=== PATIENT | female | born 1940 | race Caucasian/White ===

== ENCOUNTER 2018-04-01 20:56 | Inpatient (IN) ==
[2018-04-01] MEDS: Propofol 1000 mg/100 ml Inj 1,000 MG/100 ML BOTTLE IV.CONT PRN (21:18)
[2018-04-01] MEDS: Nitroglycerin Drip Premix 50 MG/250 ML BOTTLE IV.CONT PRN (21:35)
[2018-04-01 21:46] LABS: Baso # (Auto) 0.1 th/mm3 (0.0-0.2); Baso % (Auto) 0.7 % (0.0-2.0); Eos # (Auto) 0.8 th/mm3 (0.0-0.4); Eos % (Auto) 6.4 % (0.0-4.0); Hematocrit 33.9 % (35.0-46.0); Hemoglobin 10.7 gm/dL (11.6-15.3); Lymph # (Auto) 2.5 th/mm3 (1.0-4.8); Mean Corpuscular HGB Conc 31.6 % (32.0-36.0); Mean Corpuscular Hemoglobin 27.6 pg (27.0-34.0); Mean Corpuscular Volume 87.2 fL (80.0-100.0); Mean Platelet Volume 11.3 fL (7.0-11.0); Mono # (Auto) 0.7 th/mm3 (0.0-0.9); Mono % (Auto) 5.5 % (0.0-8.0); Neut # (Auto) 9.1 th/mm3 (1.8-7.7); Neut % (Auto) 68.4 % (16.0-70.0); Platelet Count 208 th/mm3 (150-450); Red Blood Count 3.89 mil/mm3 (4.00-5.30); Red Cell Distribution Width 15.6 % (11.6-17.2); White Blood Count 13.2 th/mm3 (4.0-11.0)
--- NOTE | 2018-04-01 21:47 | XR ---
EXAM DATE: 04/01/2018 9:41 PM EDT AGE/SEX: 77 years / Female INDICATIONS: Intubation. CLINICAL DATA: This is the patient's initial encounter. Patient reports that signs and symptoms have been present for 1 day and indicates a pain score of Nonresponsive. MEDICAL/SURGICAL HISTORY: Non-responsive. Non-responsive. COMPARISON: No prior exams available for comparison. FINDINGS: ET tube tip is 2.7 cm above the janessa. Gastric tube traverses the [id number]. The heart is upper limits normal size. There is engorgement and indistinctness of the central bronchopulmonary markings standing up into the upper lungs without definite peribronchial thickening. Both hemidiaphragms remai n well delineated. CONCLUSION: 1. ET tube in good position. 2. Fullness and indistinctness of the central bronchopulmonary markings could represent fluid overlo ad, or an inflammatory process. Electronically signed by: Brett Murray MD 04/01/2018 9:46 PM EDT
--- NOTE | 2018-04-01 21:49 | ED ---
HPI General Chief Complaint: Shortness of Breath/Dyspnea Stated Complaint: respiratory Time Seen by Provider: 04/01/18 21:11 Source: EMS Mode of arrival: EMS Limitations: other (pt intubated) History of Present Illness 77-year-old female arrives to the ED by EMS. A call was due to shortness of breath. On scene the patient tolerated BiPAP for a few seconds. Blood pressure was 260/180 per EMS. EMS gave 100 mg Lasix. The family reports patient has had increased lower extremity swelling. Family reports patient is a history of CHF. EMS intubated with an 8 oh endotracheal tube. O2 sats remained in the high 90s on 40% FiO2. MD Complaint: shortness of breath Onset (ago): unknown Context: other (increased LE edema) Severity: moderate Consistency/Duration: constant Relieving factors: oxygen and other (intubation) Known history of: congestive heart failure Treatment prior to arrival: oxygen, diuretics and intubation Related Data Home Medications Medication Instructions Recorded Confirmed Unable to Obtain Home Meds 04/01/18 04/01/18 Allergies Allergy/AdvReac Type Severity Reaction Status Date / Time atorvastatin Allergy Severe ALL Unverified 03/23/17 22:36 STATINS CAUSE ACHING AND UNABLE TO WALK penicillin G Allergy Intermediate GENERALIZED Unverified 03/23/17 22:36 EDEMA Review of Systems ROS Unobtainable ROS Unobtainable: unobtainable due to endotracheal tube PMFSH Medical History Medical History CAD (coronary artery disease) (Acute) Diabetes (Acute) H/O: hysterectomy (Acute) HLD (hyperlipidemia) (Acute) HTN (hypertension) (Acute) Surgical History Surgical History H/O arthroscopy of right knee (Acute) H/O heart artery stent (Acute) History of cholecystectomy (Acute) Family History Family History Other Family history unknown Social History Social History Substance History: Unable to Obtain Smoking Status: Former smoker How Often Do You Have a Drink Containing Alcohol: Unable to Obtain Recent Travel in [place] within the Last 8 Weeks: No Recent Out of Country Travel within the Last 8 Weeks: No Immunization History Tetanus Immunization: Unable to Assess Hx Influenza Vaccine This Season: Unable to Assess Exam Narrative Exam Narrative: GENERAL: 77 F, intubated SKIN: Skin pale and clammy. HEAD: Atraumatic. Normocephalic. EYES: Pupils equal and round. No scleral icterus. No injection or drainage. ENT: No nasal bleeding or discharge. Patient intubated. NECK: Trachea midline. No JVD. CARDIOVASCULAR: Regular rate and rhythm. No murmur appreciated. RESPIRATORY: Intubated. Rales bilaterally. GASTROINTESTINAL: Naturally enlarged. No grimacing with deep palpation. MUSCULOSKELETAL: 2+ pitting edema bilaterally. No induration erythema or warmth about the calves. NEUROLOGICAL: Intubated. PSYCHIATRIC: Unable to assess Course Initial Documented Vital Signs Respiratory Rate 16 04/01/18 20:57 Pulse Oximetry 98 04/01/18 20:57 Last Documented Vital Signs Temperature 98.9 F 04/01/18 21:12 Pulse Rate 52 L 04/01/18 23:20 Respiratory Rate 16 04/02/18 04:28 Blood Pressure 163/72 H 04/01/18 23:20 Pulse Oximetry 99 04/02/18 04:28 Medical Decision Making MDM Narrative Medical decision making narrative: Patient arrives intubated. Nitro drip started. Chest x-ray shows pulmonary edema. Overall the presentation is considered to be in keeping with CHF exacerbation with pulmonary edema. Case discussed with the reactor service operator, Dr. Tipton. Medical Screen Exam Complete: Yes Emergency Medical Condition: Yes Lab Data Lab results reviewed: Yes I reviewed the patient's lab results. Lab results narrative: BNP is elevated Potassium is elevated at however there is no evidence of hyperkalemic EKG change. The patient received insulin for the hyperglycemia. She also received 100 mg Lasix prior to arrival. There is no acute renal insufficiency and an element of hemolysis is considered as well. Result diagrams: 04/02/18 05:32 04/02/18 01:29 Lab Results 04/01/18 04/01/18 04/01/18 Range/Units 21:15 21:15 21:20 WBC 13.2 H (4.0-11.0) th/mm3 RBC 3.89 L (4.00-5.30) mil/mm3 Hgb 10.7 L (11.6-15.3) gm/dL Hct 33.9 L (35.0-46.0) % MCV 87.2 (80.0-100.0) fL MCH 27.6 (27.0-34.0) pg MCHC 31.6 L (32.0-36.0) % RDW 15.6 (11.6-17.2) % Plt Count 208 (150-450) th/mm3 MPV 11.3 H (7.0-11.0) fL Prelim Diff (Auto) Slide review pending Neut % (Auto) 68.4 (16.0-70.0) % Lymph % (Auto) 19.0 (9.0-44.0) % Stoddard % (Auto) 5.5 (0.0-8.0) % Eos % (Auto) 6.4 H (0.0-4.0) % Baso % (Auto) 0.7 (0.0-2.0) % Neut # (Auto) 9.1 H (1.8-7.7) th/mm3 Lymph # (Auto) 2.5 (1.0-4.8) th/mm3 Stoddard # (Auto) 0.7 (0.0-0.9) th/mm3 Eos # (Auto) 0.8 H (0.0-0.4) th/mm3 Baso # (Auto) 0.1 (0.0-0.2) th/mm3 WBC Differential . Diff Scan Auto diff confirmed Differential Comment . Platelet Estimate Normal (Normal) Platelet Morphology Normal (Normal) RBC Morphology Normal (Normal) PT (9.8-11.6) sec INR Ratio APTT (24.3-30.1) sec Puncture Site Patient Temperature O2 Saturation (90-100) % ABG pH (7.380-7.420) ABG pCO2 (38-42) mmHg ABG pO2 (61-120) mmHg ABG HCO3 (22-26) mmol/L ABG O2 Content (12.0-20.0) Vol % ABG Base Excess (-2-2) mmol/L ABG Methemoglobin (0-2) % Durga Test Hemoglobin (12.0-16.0) G/DL Carboxyhemoglobin (0-4) % O2 Delivery Device Vent Setting Inspired O2 % Critical Value Sodium (136-145) meq/L Potassium (3.5-5.1) meq/L Chloride (98-107) meq/L Carbon Dioxide (21.0-32.0) meq/L Anion Gap (5-15) meq/L BUN (7-18) mg/dL Creatinine (0.50-1.00) mg/dL Estimated GFR (>89) mL/min Random Glucose (74-106) mg/dL Calcium (8.5-10.1) mg/dL Magnesium (1.5-2.5) mg/dL Total Bilirubin (0.2-1.0) mg/dL AST (15-37) U/L ALT (10-53) U/L Alkaline Phosphatase (45-117) U/L Troponin I (0.02-0.05) ng/mL B-Natriuretic Peptide (0-100) pg/mL Total Protein (6.4-8.2) g/dL Albumin (3.4-5.0) g/dL Urine Color Straw (Yellw/Straw) Urine Clarity Clear (Clear) Urine pH 6.0 (5.0-8.5) Ur Specific [place] 1.008 (1.002-1.035) Urine Protein 500 or greater (Neg-Trace) mg/dL Urine Glucose (UA) 150 H (Negative) mg/dL Urine Ketones Negative (Negative) mg/dL Urine Occult Blood Negative (Negative) Urine Nitrate Negative (Negative) Urine Bilirubin Negative (Negative) Urine Urobilinogen Less than 2 (Less than 2) mg/dL Ur Leukocyte Esterase Negative (Negative) Urine WBC Less than 1 (0-5) /hpf Ur Squamous Epith Cells <1 (0-5) /hpf Amorphous Sediment Rare H (None) /hpf Micro UA Comment Cath-culture not ind Ur Microscopic Review Not Reportable Urine Culture Comments Cath-cult not ind Nasal Screen MRSA (PCR) (Negative) Urine Opiates Screen Neg (Neg) Ur Barbiturates Screen Neg (Neg) Ur Amphetamines Screen Neg (Neg) U Benzodiazepines Scrn Neg (Neg) Urine Cocaine Screen Neg (Neg) U Cannabinoids Screen Neg (Neg) 04/01/18 04/01/18 04/01/18 Range/Units 21:20 21:20 21:20 WBC (4.0-11.0) th/mm3 RBC (4.00-5.30) mil/mm3 Hgb (11.6-15.3) gm/dL Hct (35.0-46.0) % MCV (80.0-100.0) fL MCH (27.0-34.0) pg MCHC (32.0-36.0) % RDW (11.6-17.2) % Plt Count (150-450) th/mm3 MPV (7.0-11.0) fL Prelim Diff (Auto) Neut % (Auto) (16.0-70.0) % Lymph % (Auto) (9.0-44.0) % Stodd[place] % (Auto) (0.0-8.0) % Eos % (Auto) (0.0-4.0) % Baso % (Auto) (0.0-2.0) % Neut # (Auto) (1.8-7.7) th/mm3 Lymph # (Auto) (1.0-4.8) th/mm3 Stoddard # (Auto) (0.0-0.9) th/mm3 Eos # (Auto) (0.0-0.4) th/mm3 Baso # (Auto) (0.0-0.2) th/mm3 WBC Differential Diff Scan Differential Comment Platelet Estimate (Normal) Platelet Morphology (Normal) RBC Morphology (Normal) PT 9.7 L (9.8-11.6) sec INR 1.0 Ratio APTT 28.3 (24.3-30.1) sec Puncture Site Patient Temperature O2 Saturation (90-100) % ABG pH (7.380-7.420) ABG pCO2 (38-42) mmHg ABG pO2 (61-120) mmHg ABG HCO3 (22-26) mmol/L ABG O2 Content (12.0-20.0) Vol % ABG Base Excess (-2-2) mmol/L ABG Methemoglobin (0-2) % Durga Test Hemoglobin (12.0-16.0) G/DL Carboxyhemoglobin (0-4) % O2 Delivery Device Vent Setting Inspired O2 % Critical Value Sodium 139 (136-145) meq/L Potassium 5.4 H (3.5-5.1) meq/L Chloride 106 (98-107) meq/L Carbon Dioxide 23.7 (21.0-32.0) meq/L Anion Gap 9 (5-15) meq/L BUN 56 H (7-18) mg/dL Creatinine 2.41 H (0.50-1.00) mg/dL Estimated GFR 19 L (>89) mL/min Random Glucose 320 H (74-106) mg/dL Calcium 8.5 (8.5-10.1) mg/dL Magnesium 2.1 (1.5-2.5) mg/dL Total Bilirubin 0.2 (0.2-1.0) mg/dL AST 17 (15-37) U/L ALT 21 (10-53) U/L Alkaline Phosphatase 85 (45-117) U/L Troponin I 0.03 (0.02-0.05) ng/mL B-Natriuretic Peptide 764 H (0-100) pg/mL Total Protein 7.2 (6.4-8.2) g/dL Albumin 3.1 L (3.4-5.0) g/dL Urine Color (Yellw/Straw) Urine Clarity (Clear) Urine pH (5.0-8.5) Ur Specific [place] (1.002-1.035) Urine Protein (Neg-Trace) mg/dL Urine Glucose (UA) (Negative) mg/dL Urine Ketones (Negative) mg/dL Urine Occult Blood (Negative) Urine Nitrate (Negative) Urine Bilirubin (Negative) Urine Urobilinogen (Less than 2) mg/dL Ur Leukocyte Esterase (Negative) Urine WBC (0-5) /hpf Ur Squamous Epith Cells (0-5) /hpf Amorphous Sediment (None) /hpf Micro UA Comment Ur Microscopic Review Urine Culture Comments Nasal Screen MRSA (PCR) (Negative) Urine Opiates Screen (Neg) Ur Barbiturates Screen (Neg) Ur Amphetamines Screen (Neg) U Benzodiazepines Scrn (Neg) Urine Cocaine Screen (Neg) U Cannabinoids Screen (Neg) 04/01/18 04/02/18 04/02/18 Range/Units 21:50 01:04 01:29 WBC (4.0-11.0) th/mm3 RBC (4.00-5.30) mil/mm3 Hgb (11.6-15.3) gm/dL Hct (35.0-46.0) % MCV (80.0-100.0) fL MCH (27.0-34.0) pg MCHC (32.0-36.0) % RDW (11.6-17.2) % Plt Count (150-450) th/mm3 MPV (7.0-11.0) fL Prelim Diff (Auto) Neut % (Auto) (16.0-70.0) % Lymph % (Auto) (9.0-44.0) % Stoddard % (Auto) (0.0-8.0) % Eos % (Auto) (0.0-4.0) % Baso % (Auto) (0.0-2.0) % Neut # (Auto) (1.8-7.7) th/mm3 Lymph # (Auto) (1.0-4.8) th/mm3 Stoddard # (Auto) (0.0-0.9) th/mm3 Eos # (Auto) (0.0-0.4) th/mm3 Baso # (Auto) (0.0-0.2) th/mm3 WBC Differential Diff Scan Differential Comment Platelet Estimate (Normal) Platelet Morphology (Normal) RBC Morphology (Normal) PT (9.8-11.6) sec INR Ratio APTT (24.3-30.1) sec Puncture Site Right radial Patient Temperature 98.6 O2 Saturation 98 (90-100) % ABG pH 7.33 L (7.380-7.420) ABG pCO2 47 H (38-42) mmHg ABG pO2 156 H (61-120) mmHg ABG HCO3 24 (22-26) mmol/L ABG O2 Content 13.8 (12.0-20.0) Vol % ABG Base Excess -1.2 (-2-2) mmol/L ABG Methemoglobin 0.6 (0-2) % Durga Test Present Hemoglobin 9.8 L (12.0-16.0) G/DL Carboxyhemoglobin 1.2 (0-4) % O2 Delivery Device Ventilator Vent Setting Vac/16/550/+5 Inspired O2 60 % Critical Value No Sodium (136-145) meq/L Potassium 5.6 H (3.5-5.1) meq/L Chloride (98-107) meq/L Carbon Dioxide (21.0-32.0) meq/L Anion Gap (5-15) meq/L BUN (7-18) mg/dL Creatinine (0.50-1.00) mg/dL Estimated GFR (>89) mL/min Random Glucose (74-106) mg/dL Calcium (8.5-10.1) mg/dL Magnesium (1.5-2.5) mg/dL Total Bilirubin (0.2-1.0) mg/dL AST (15-37) U/L ALT (10-53) U/L Alkaline Phosphatase (45-117) U/L Troponin I (0.02-0.05) ng/mL B-Natriuretic Peptide (0-100) pg/mL Total Protein (6.4-8.2) g/dL Albumin (3.4-5.0) g/dL Urine Color (Yellw/Straw) Urine Clarity (Clear) Urine pH (5.0-8.5) Ur Specific [place] (1.002-1.035) Urine Protein (Neg-Trace) mg/dL Urine Glucose (UA) (Negative) mg/dL Urine Ketones (Negative) mg/dL Urine Occult Blood (Negative) Urine Nitrate (Negative) Urine Bilirubin (Negative) Urine Urobilinogen (Less than 2) mg/dL Ur Leukocyte Esterase (Negative) Urine WBC (0-5) /hpf Ur Squamous Epith Cells (0-5) /hpf Amorphous Sediment (None) /hpf Micro UA Comment Ur Microscopic Review Urine Culture Comments Nasal Screen MRSA (PCR) Not detected (Negative) Urine Opiates Screen (Neg) Ur Barbiturates Screen (Neg) Ur Amphetamines Screen (Neg) U Benzodiazepines Scrn (Neg) Urine Cocaine Screen (Neg) U Cannabinoids Screen (Neg) 04/02/18 Range/Units 05:32 WBC 9.4 (4.0-11.0) th/mm3 RBC 3.25 L (4.00-5.30) mil/mm3 Hgb 9.0 L (11.6-15.3) gm/dL Hct 28.0 L (35.0-46.0) % MCV 86.3 (80.0-100.0) fL MCH 27.7 (27.0-34.0) pg MCHC 32.1 (32.0-36.0) % RDW 15.5 (11.6-17.2) % Plt Count 175 (150-450) th/mm3 MPV 11.1 H (7.0-11.0) fL Prelim Diff (Auto) Neut % (Auto) 73.0 H (16.0-70.0) % Lymph % (Auto) 15.8 (9.0-44.0) % [place] % (Auto) 8.0 (0.0-8.0) % Eos % (Auto) 2.4 (0.0-4.0) % Baso % (Auto) 0.8 (0.0-2.0) % Neut # (Auto) 6.9 (1.8-7.7) th/mm3 Lymph # (Auto) 1.5 (1.0-4.8) th/mm3 [place] # (Auto) 0.8 (0.0-0.9) th/mm3 Eos # (Auto) 0.2 (0.0-0.4) th/mm3 Baso # (Auto) 0.1 (0.0-0.2) th/mm3 WBC Differential . Diff Scan Differential Comment Auto diff final Platelet Estimate (Normal) Platelet Morphology (Normal) RBC Morphology (Normal) PT (9.8-11.6) sec INR Ratio APTT (24.3-30.1) sec Puncture Site Patient Temperature O2 Saturation (90-100) % ABG pH (7.380-7.420) ABG pCO2 (38-42) mmHg ABG pO2 (61-120) mmHg ABG HCO3 (22-26) mmol/L ABG O2 Content (12.0-20.0) Vol % ABG Base Excess (-2-2) mmol/L ABG Methemoglobin (0-2) % Durga Test Hemoglobin (12.0-16.0) G/DL Carboxyhemoglobin (0-4) % O2 Delivery Device Vent Setting Inspired O2 % Critical Value Sodium (136-145) meq/L Potassium (3.5-5.1) meq/L Chloride (98-107) meq/L Carbon Dioxide (21.0-32.0) meq/L Anion Gap (5-15) meq/L BUN (7-18) mg/dL Creatinine (0.50-1.00) mg/dL Estimated GFR (>89) mL/min Random Glucose (74-106) mg/dL Calcium (8.5-10.1) mg/dL Magnesium (1.5-2.5) mg/dL Total Bilirubin (0.2-1.0) mg/dL AST (15-37) U/L ALT (10-53) U/L Alkaline Phosphatase (45-117) U/L Troponin I (0.02-0.05) ng/mL B-Natriuretic Peptide (0-100) pg/mL Total Protein (6.4-8.2) g/dL Albumin (3.4-5.0) g/dL Urine Color (Yellw/Straw) Urine Clarity (Clear) Urine pH (5.0-8.5) Ur Specific [place] (1.002-1.035) Urine Protein (Neg-Trace) mg/dL Urine Glucose (UA) (Negative) mg/dL Urine Ketones (Negative) mg/dL Urine Occult Blood (Negative) Urine Nitrate (Negative) Urine Bilirubin (Negative) Urine Urobilinogen (Less than 2) mg/dL Ur Leukocyte Esterase (Negative) Urine WBC (0-5) /hpf Ur Squamous Epith Cells (0-5) /hpf Amorphous Sediment (None) /hpf Micro UA Comment Ur Microscopic Review Urine Culture Comments Nasal Screen MRSA (PCR) (Negative) Urine Opiates Screen (Neg) Ur Barbiturates Screen (Neg) Ur Amphetamines Screen (Neg) U Benzodiazepines Scrn (Neg) Urine Cocaine Screen (Neg) U Cannabinoids Screen (Neg) Imaging Data Attestation: I personally reviewed and interpreted this imaging study as follows : Radiologist's impression: Chest X-Ray 04/01/18 21:11 CONCLUSION: 1. ET tube in good position. 2. Fullness and indistinctness of the central bronchopulmonary markings could represent fluid overload, or an inflammatory process. Discharge Plan Discharge Disposition Patient Disposition: 30 Still Patient Physicians Team ED Provider: Steve Eduardo Primary Care Provider: Michelle Subramanian Attending Provider: Aileen Tipton Discharge Interventions Interventions: ED Discharge Assessment Last Done: 04/02/18 01:08 Vital Signs Last Done: 04/01/18 22:57 Status ED Status: Left Department Discharge Information Discharge Date/Time: 04/02/18 01:09
[2018-04-01 21:51] LABS: Amorphous Sediment,Urine Rare /hpf; Bilirubin,Urine Negative (Negative); Clarity,Urine Clear (Clear); Color,Urine Straw (Yellw/Straw); Glucose,Urine (UA) 150 mg/dL (Negative); Leukocyte Esterase,Urine Negative (Negative); Nitrite,Urine Negative (Negative); Specific Gravity,Urine 1.008 (1.002-1.035); Squamous Epithelial Cell,Urine <1 /hpf (0-5)
[2018-04-01 22:00] LABS: ABG Base Excess -1.2 mmol/L (-2-2); ABG PCO2 47 mmHg (38-42); ABG PO2 156 mmHg (61-120)
[2018-04-01 22:03] LABS: Amphetamine Screen,Urine Neg (Neg); Barbiturate Screen,Urine Neg (Neg); Cannabinoid Screen,Urine Neg (Neg); Cocaine Screen,Urine Neg (Neg)
[2018-04-01 22:05] LABS: Opiate Screen,Urine Neg (Neg)
[2018-04-01 22:09] LABS: Albumin 3.1 g/dL (3.4-5.0); Anion Gap 9 meq/L (5-15); Aspartate Aminotransferase 17 U/L (15-37); Blood Urea Nitrogen 56 mg/dL (7-18); Calcium 8.5 mg/dL (8.5-10.1); Carbon Dioxide 23.7 meq/L (21.0-32.0); Chloride 106 meq/L (98-107); Glomerular Filtration Rate 19 mL/min (>89); Glucose,Random 320 mg/dL (74-106); Magnesium 2.1 mg/dL (1.5-2.5); Potassium 5.4 meq/L (3.5-5.1); Sodium 139 meq/L (136-145)
[2018-04-01 22:10] LABS: Alanine Aminotransferase 21 U/L (10-53); Platelet Estimate Normal (Normal); Platelet Morphology Normal (Normal); RBC Morphology Normal (Normal)
[2018-04-01] MEDS ORDERED: Calcium Chloride Inj 1 GM in Sodium Chlor 0.9% Inj 100 ML IV.SIG ONE (22:12)
[2018-04-01 22:13] LABS: Activated Partial Thrombo Time 28.3 sec (24.3-30.1); Prothrombin Time 9.7 sec (9.8-11.6)
[2018-04-01 22:14] LABS: Alkaline Phosphatase 85 U/L (45-117); Total Protein 7.2 g/dL (6.4-8.2); Troponin I 0.03 ng/mL (0.02-0.05)
[2018-04-02] MEDS: Propofol 1000 mg/100 ml Inj 1,000 MG/100 ML BOTTLE IV.CONT PRN ×5 (01:32→15:51)
--- NOTE | 2018-04-02 03:29 | P.HPCC ---
History of Present Illness Service: 77 yo WF with PMH of hypertension, hyperlipidemia, diabetes mellitus, Primary Care Physician: Michelle Subramanian MD Chief Complaint: SOB History of Present Illness: Unable to obtain history from patient due to intubation. History obtained from discussion with Dr. Eduardo and with review of medical records. 77-year-old female with past medical history of hypertension, hyperlipidemia, diabetes, coronary artery disease with prior stenting 2003, reported history of CHF (no prior echo here). [facility] was summoned due to respiratory distress. She was hypoxic at the scene despite nonrebreather. She was started on BiPAP but ultimately required intubation at the scene. Her BP was 260/180 and she had bilateral rales and reported increased pedal edema. She was given Lasix 100 mg IV. Upon arrival she was sedated with propofol. Chest x-ray showed pulmonary edema. She was started on a nitroglycerin drip. She has diuresed 800 mL's. Afebrile. Inpatient Certification: I certify that the inpatient services were ordered in accordance with Medicare regulations governing the order. 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 - Medical History Medical History: Medical History (Last Updated 04/02/18 @ 04:11 by Aileen Tipton MD) CAD (coronary artery disease) Diabetes H/O: hysterectomy HLD (hyperlipidemia) HTN (hypertension) - Surgical History Surgical History: Surgical History (Last Updated 04/02/18 @ 04:11 by Aileen Tipton MD) H/O arthroscopy of right knee H/O heart artery stent History of cholecystectomy - Family History Family History: Family History (Last Updated 04/02/18 @ 04:11 by Aileen Tipton MD) Other Family history unknown - Tobacco History Smoking Status: Former smoker - Alcohol History How Often Do You Have a Drink Containing Alcohol: Unable to Obtain - Substance Use History Substance History: Unable to Obtain - Travel History Recent Travel in the [place] Within the Last 8 Weeks: No Recent Travel Out of the Country Within the Last 8 Weeks: No - Immunization History Tetanus Immunization: Unable to Assess Hx Influenza Vaccine This Season: Unable to Assess Medications and Allergies Active Medications: Active Medications Chlorhexidine Gluconate (Chlorhexidine 2% Cloth) 3 pack TOPICAL DAILY@0400 VIVEK Stop: 04/07/18 03:59 Chlorhexidine Gluconate (Chlorhexidine 2% Cloth) 3 pack TOPICAL DAILY@0400 PRN PRN Reason: Extra cloth needed Stop: 04/07/18 03:59 Nitroglycerin/Dextrose (Nitroglycerin Drip Premix) 50 mg in 250 mls @ 0 mls/hr IV.CONT TITRATE PRN; Protocol PRN Reason: Per Protocol Last Titration: 04/01/18 22:58 Dose: 85 mcg/min, 25.5 mls/hr Propofol (Diprivan 1000 Mg/100 Ml Inj) 1,000 mg in 100 mls @ 2.994 mls/hr IV.CONT TITRATE PRN; Protocol PRN Reason: Per Protocol Last Admin: 04/02/18 01:32 Dose: 45 mcg/kg/min, 26.94 mls/hr Allergies Allergy/AdvReac Type Severity Reaction Status Date / Time atorvastatin Allergy Severe ALL Unverified 03/23/17 22:36 STATINS CAUSE ACHING AND UNABLE TO WALK penicillin G Allergy Intermediate GENERALIZED Unverified 03/23/17 22:36 EDEMA Home Medications Medication Instructions Recorded Confirmed Type Unable to Obtain Home Meds 04/01/18 04/01/18 History Results - Labs CBC & Chem 7: 04/02/18 15:40 04/02/18 12:20 Labs: Short CBC 04/01/18 Range/Units 21:20 WBC 13.2 H (4.0-11.0) th/mm3 Hgb 10.7 L (11.6-15.3) gm/dL Hct 33.9 L (35.0-46.0) % Plt Count 208 (150-450) th/mm3 BMP 04/01/18 04/02/18 21:20 01:29 Sodium 139 Potassium 5.4 H 5.6 H Chloride 106 Carbon Dioxide 23.7 BUN 56 H Creatinine 2.41 H Calcium 8.5 Cardiac Enzymes 04/01/18 Range/Units 21:20 Troponin I 0.03 (0.02-0.05) ng/mL Liver Function 04/01/18 Range/Units 21:20 Total Bilirubin 0.2 (0.2-1.0) mg/dL AST 17 (15-37) U/L ALT 21 (10-53) U/L Alkaline Phosphatase 85 (45-117) U/L Albumin 3.1 L (3.4-5.0) g/dL Urine 04/01/18 Range/Units 21:15 Urine Color Straw (Yellw/Straw) Urine Clarity Clear (Clear) Urine pH 6.0 (5.0-8.5) Ur Specific Ideal 1.008 (1.002-1.035) Urine Protein 500 or greater (Neg-Trace) mg/dL Urine Glucose (UA) 150 H (Negative) mg/dL - Imaging Impressions Chest X-Ray 04/01/18 21:11 CONCLUSION: 1. ET tube in good position. 2. Fullness and indistinctness of the central bronchopulmonary markings could represent fluid overload, or an inflammatory process. Exam Vital signs: Vital Signs 04/01/18 20:57 04/01/18 21:00 04/01/18 21:11 Temperature Pulse Rate 82 Respiratory Rate 16 18 Blood Pressure 177/78 H Pulse Oximetry 98 97 95 04/01/18 21:12 04/01/18 21:41 04/01/18 21:46 Temperature 98.9 F Pulse Rate 77 73 72 Respiratory Rate 16 16 16 Blood Pressure 238/109 H 198/83 H 240/102 H Pulse Oximetry 96 100 99 04/01/18 21:54 04/01/18 22:12 04/01/18 22:31 Temperature Pulse Rate 64 62 60 Respiratory Rate 16 16 16 Blood Pressure 228/93 H 190/78 H 196/85 H Pulse Oximetry 99 99 04/01/18 22:57 04/01/18 23:20 04/02/18 00:30 Temperature Pulse Rate 57 L 52 L Respiratory Rate 16 16 Blood Pressure 177/72 H 163/72 H Pulse Oximetry 99 98 100 04/02/18 01:24 Temperature Pulse Rate Respiratory Rate 18 Blood Pressure Pulse Oximetry 98 Intake & Output 04/01/18 04/01/18 04/02/18 06:59 18:59 06:59 Intake Total 210 / 210 Output Total 600 / 600 Balance -390 / -390 Weight 99.79 kg Intake: IV 210 / 210 Diprivan 1000 mg/100 ml Inj 1, 100 / 100 000 mg In 100 ml @ 5 MCG/KG/MIN 2.994 mls/hr IV.CONT TITRATE PRN Rx#:[id number] Calcium Chloride Inj 1 GM In NS 110 / 110 Inj 100 ML @ 110 mls/hr IV.SIG ONCE ONE Rx#:[id number] Output: Urine Amount (Catheter) 600 / 600 Indwelling Urethral Catheter 600 / 600 Narrative: GENERAL: Well-nourished, well-developed patient who is orotracheally intubated. SKIN: Warm and dry, adequately perfused.. HEAD: Atraumatic. Normocephalic. EYES: Pupils equal and round, 4 mm and reactive to 2 mm bilaterally.. No scleral icterus. No injection or drainage. ENT: No nasal bleeding or discharge. Mucous membranes pink and moist. NECK: Trachea midline. Unable to appreciate JVD. CARDIOVASCULAR: Sinus rate in the 50s-60s. In 40s while propofol was on.. No murmurs rubs or gallops. RESPIRATORY: Breathing comfortably in synchronous with ventilator. No wheezes rales or rhonchi. GASTROINTESTINAL: Abdomen soft, non-tender, nondistended. MUSCULOSKELETAL: Extremities without clubbing, cyanosis. 2+ bipedal edema. NEUROLOGICAL: Sedation held. She withdraws with all extremities. No apparent focal deficit. Caprini VTE Risk Assessment Caprini VTE Risk Assessment: Moderate/High Risk (score >= 2) Caprini Risk Assessment Model: Point Value = 1 Point Value = 2 Point Value = 3 Point Value = 5 Age 41-60 Minor surgery BMI > 25 kg/m2 Swollen legs Varicose veins or History of unexplained or recurrent spontaneous Oral contraceptives or hormone replacement Sepsis (< 1 month) Serious lung disease, including pneumonia (< 1 month) Abnormal pulmonary function Acute myocardial infarction Congestive heart failure (< 1 month) History of inflammatory bowel disease Medical patient at bed rest Age 61-74 Arthroscopic surgery Major open surgery (> 45 min) Laparoscopic surgery (> 45 min) Malignancy Confined to bed (> 72 hours) Immobilizing plaster cast Central venous access Age >= 75 History of VTE Family history of VTE Factor V Leiden Prothrombin [id number] Lupus anticoagulant Anticardiolipin antibodies Elevated serum homocysteine Heparin-induced thrombocytopenia Other congenital or acquired thrombophilia Stroke (< 1 month) Elective arthroplasty Hip, pelvis, or leg fracture Acute spinal cord injury (< 1 month) Prophylaxis Regimen: Total Risk Factor Score Risk Level Prophylaxis Regimen 0-1 Low Early ambulation 2 Moderate Order ONE of the following: *Sequential Compression Device (SCD) *Heparin 5000 units SQ BID 3-4 Higher Order ONE of the following medications: *Heparin 5000 units SQ TID *Enoxaparin/Lovenox 40 mg SQ daily (WT < 150 kg, CrCl > 30 mL/min) *Enoxaparin/Lovenox 30 mg SQ daily (WT < 150 kg, CrCl > 10-29 mL/min) *Enoxaparin/Lovenox 30 mg SQ BID (WT < 150 kg, CrCl > 30 mL/min) AND/OR *Sequential Compression Device (SCD) 5 or more Highest Order ONE of the following medications: *Heparin 5000 units SQ TID (Preferred with Epidurals) *Enoxaparin/Lovenox 40 mg SQ daily (WT < 150 kg, CrCl > 30 mL/min) *Enoxaparin/Lovenox 30 mg SQ daily (WT < 150 kg, CrCl > 10-29 mL/min) *Enoxaparin/Lovenox 30 mg SQ BID (WT < 150 kg, CrCl > 30 mL/min) AND *Sequential Compression Device (SCD) Assessment and Plan - Assessment and Plan Plan: NEURO: Propofol for sedation Target RASS -2 Daily sedation vacation Lortab as needed for pain. Fentanyl as needed for breakthrough pain. RESP: Acute hypoxemic respiratory failure Prior tobacco abuse PRVC. Ventilator bundle. Wean FiO2 for sats greater than 92%. CPAP trial in a.m. CV: Pulmonary edema Hypertensive emergency History of coronary artery disease with prior stent 2003 Hyperlipidemia Hypertension Serial troponins, EKG, obtain 2D echo. Received Lasix 100 mg IV. Lasix 40 mill grams IV every 12. Continue nitroglycerin drip target systolic blood pressure less than 140. Beta kelsey would be a good choice, but currently bradycardic in 40-60 on sedation. Norvasc 10 mg daily. No LIZ inhibitor at this time due to kidney injury Previously intolerant to statin. ASA 81 daily. GI: Obesity OGT in place. Initiate enteral feeds later today if not extubating FEN/RENAL: Renal insufficiency. Acuity of this is unknown. Most recent available creatinine was 0.9 06/2009. Fernando is in place. Follow-up BMP. Hyperkalemia Kayexalate 15 g now. Follow-up potassium ID: Afebrile. Seems much less likely to be of infectious etiology at this point so we will monitor off antibiotics.. No significant secretions with suctioning. monitor. HEME: Monitor CBC ENDO: Diabetes mellitus Monitor bedside glucose every 6 hours and administer medium dose sliding scale as indicated. PROPH: SCDs and heparin 5000 units subcu every 12 hours for DVT prophylaxis. Famotidine IV for stress ulcer prophylaxis. ACCESS: PIV providing adequate access at this time Level 3 H&P
[2018-04-02] MEDS ORDERED: Sodium Polystyrene Sulfonate/Sorbitol Liq 15 GM/60 ML UDC PO ONE (03:56)
[2018-04-02] MEDS ORDERED: Calcium Gluconate Inj 1 GM in Sodium Chlor 0.9% Inj 100 ML IV.SIG ONE (03:57)
[2018-04-02] MEDS ORDERED: Chlorhexidine Gluconate 2% 1 Pack (2 Cloths) TOPICAL PRN (04:00)
[2018-04-02] MEDS ORDERED: fentaNYL Citrate Inj 100 MCG/2 ML Ampul IV PUSH PRN (04:26)
[2018-04-02] MEDS ORDERED: Bisacodyl 10 MG Supp RECTAL PRN (04:26)
[2018-04-02] MEDS ORDERED: amLODIPine 5 MG Tablet NG/OG SCH (04:45)
[2018-04-02] MEDS: Chlorhexidine Gluconate 2% 1 Pack (2 Cloths) TOPICAL SCH (04:46)
[2018-04-02] MEDS ORDERED: Dextrose 50% in Water 50 ML Vial IV.PUSH PRN (04:46)
[2018-04-02] MEDS: Nitroglycerin Drip Premix 50 MG/250 ML BOTTLE IV.CONT PRN ×2 (04:47→18:28)
[2018-04-02 05:58] LABS: Baso # (Auto) 0.1 th/mm3 (0.0-0.2); Baso % (Auto) 0.8 % (0.0-2.0); Eos # (Auto) 0.2 th/mm3 (0.0-0.4); Eos % (Auto) 2.4 % (0.0-4.0); Lymph # (Auto) 1.5 th/mm3 (1.0-4.8); Lymph % (Auto) 15.8 % (9.0-44.0); Mean Corpuscular HGB Conc 32.1 % (32.0-36.0); Mean Corpuscular Hemoglobin 27.7 pg (27.0-34.0); Mean Corpuscular Volume 86.3 fL (80.0-100.0); Mean Platelet Volume 11.1 fL (7.0-11.0); Mono # (Auto) 0.8 th/mm3 (0.0-0.9); Neut # (Auto) 6.9 th/mm3 (1.8-7.7); Platelet Count 175 th/mm3 (150-450); Red Blood Count 3.25 mil/mm3 (4.00-5.30); Red Cell Distribution Width 15.5 % (11.6-17.2); White Blood Count 9.4 th/mm3 (4.0-11.0)
[2018-04-02] MEDS ORDERED: Heparin - SQ 10,000 UNITS/ML Vial SQ SCH (06:00)
[2018-04-02 06:25] LABS: Calcium 9.8 mg/dL (8.5-10.1); Potassium 5.3 meq/L (3.5-5.1)
[2018-04-02 06:27] LABS: Troponin I 7.87 ng/mL (0.02-0.05)
[2018-04-02] MEDS ORDERED: Heparin 10,000 UNITS/10 ML Vial (for IV use) IV.PUSH STA (06:40)
[2018-04-02 08:02] LABS: Activated Partial Thrombo Time 23.9 sec (24.3-30.1); Prothrombin Time 10.4 sec (9.8-11.6)
[2018-04-02] MEDS: Heparin Drip 25,000 UNIT/250 ML BAG IV.CONT PRN (08:50)
[2018-04-02] MEDS: Famotidine PF Inj 20 MG/2 ML Vial IV.PUSH SCH ×2 (08:53→20:00)
[2018-04-02] MEDS: Chlorhexidine 0.12% Oral Kit 15 ML UDC OROPHARYNG SCH ×2 (08:53→19:59)
[2018-04-02] MEDS: amLODIPine 5 MG Tablet NG/OG SCH (08:53)
[2018-04-02] MEDS: Senna/Docusate Sodium 8.6/50 MG Tablet PO SCH ×2 (08:53→20:00)
[2018-04-02] MEDS ORDERED: Famotidine PF Inj 20 MG/2 ML Vial IV.PUSH SCH (09:00)
[2018-04-02] MEDS: Insulin NovoLOG Aspart Correctional Sugar Inj SQ SCH ×5 (09:02→23:50)
[2018-04-02] MEDS ORDERED: TIROFIBAN BOLUS IV.PUSH ONE (10:15)
--- NOTE | 2018-04-02 10:25 | MB ---
cc: Genaro Pillai MD DATE: 04/02/2018 REASON FOR CONSULTATION: Non-ST elevation SD. HISTORY OF PRESENT ILLNESS: The patient is a 77-year-old woman who at the moment has fairly unknown medical history, but nursing did obtain some report that she has a history of coronary disease. There is currently no family available and the patient is intubated. Per report, she presented with chest pain and respiratory failure, was fairly quickly intubated. Her second troponin came back positive at 7.87. She was started on heparin and nitroglycerin drip as her pressure was very high. Currently, she is hemodynamically stable with somewhat elevated blood pressures, but intubated and sedated and otherwise hemodynamically stable. PAST MEDICAL HISTORY: Unknown, but reports of coronary artery disease. CURRENT MEDICATIONS: 1. Albuterol. 2. Norvasc 10 mg daily. 3. Aspirin. 4. Heparin drip. 5. Nitroglycerin drip. 6. Diprivan. ALLERGIES: UNKNOWN DRUG ALLERGIES. PHYSICAL EXAMINATION: VITAL SIGNS: Afebrile, pulse 48, respiratory rate 16, BP as high as 240/102, now down to 160s systolic. Saturating 100% on 60% FiO2. GENERAL: Intubated, obese, elderly woman who is sedated. NECK: No JVD. LUNGS: Clear to auscultation with ventilator sounds appreciated. CARDIOVASCULAR: Bradycardic rate, regular rhythm. No significant murmurs appreciated. ABDOMEN: Benign. EXTREMITIES: Trace edema bilaterally. LABORATORY DATA: Sodium 141, potassium 5.3, chloride 106, bicarbonate 26, BUN 54, creatinine 2.4. Troponin 7.87, up from 0.03. BNP 764. INR is 1.0. White count 9.4, hematocrit 28.0, platelets 175. Initial EKG shows sinus rhythm at [address] depressions concerning for ischemia. There is also perhaps minimal AVR ST elevation, which resolves on subsequent EKGs. This does indicate the possibility of multivessel or left main disease. IMAGING DATA: Chest x-ray is consistent with CHF. IMPRESSION: Non-ST elevation myocardial infarction. The patient presented with respiratory failure, congestive heart failure, severe hypertension, and an ischemic-appearing EKG. Her EKG did improve with resolution of the initially seen minimal AVR ST elevations, and apparently the decision was made for medical management at the time. Currently, I am unable to assess her chest pain, but her most recent EKG done this morning does show some improvement in the previously seen ischemic changes. At this point, I would pursue full medical therapy including renal dosing of Aggrastat, as well as aspirin and heparin. She is on a nitroglycerin drip. Would hold a beta kelsey for now given her baseline bradycardia. She likely will need a cardiac catheterization at some point, but given her renal function would prefer some improvement. She appears to be diuresing well and perhaps will have better renal will have better renal function once she diureses a bit more. Further recommendation based on the above. We will need to obtain any cardiac history she may have. Thank you again for the opportunity to participate in this patient's care. MD BARBER Aceves/margareth , 09:35 AM , 09:43 AM
[2018-04-02] MEDS ORDERED: Tirofiban Inj 12,500 MCG/250 ML PLAST..BAG IV.CONT SCH (10:30)
[2018-04-02] MEDS: Tirofiban Inj 12,500 MCG/250 ML PLAST..BAG IV.CONT SCH (10:54)
[2018-04-02 11:47] LABS: Hematocrit 27.3 % (35.0-46.0); Hemoglobin 8.8 gm/dL (11.6-15.3); Mean Corpuscular HGB Conc 32.3 % (32.0-36.0); Mean Corpuscular Hemoglobin 27.7 pg (27.0-34.0); Mean Corpuscular Volume 85.7 fL (80.0-100.0); Platelet Count 177 th/mm3 (150-450); Red Blood Count 3.19 mil/mm3 (4.00-5.30); Red Cell Distribution Width 15.6 % (11.6-17.2); White Blood Count 9.1 th/mm3 (4.0-11.0)
[2018-04-02] MEDS: Oral Hygiene Kit OROPHARYNG SCH ×3 (12:19→23:50)
--- NOTE | 2018-04-02 13:07 | ECG ---
Date Performed: 04/01/2018 Time Performed: 21:00:51 PTAGE: 77 years EKG: Sinus tachycardia addendum: Ischemic appearing precordial ST depressions with slight ST chester vation in aVR, suggests likelyhood of left main or multivessel coronary artery disease, potentially a cute Clinical correlation is recommended PREVIOUS TRACING : 06/12/2009 11.20 DOCTOR: Genaro Pillai Interpretating Date/Time 04/02/2018 13:11:40
--- NOTE | 2018-04-02 13:09 | ECG ---
Date Performed: 04/02/2018 Time Performed: 10:37:21 PTAGE: 77 years EKG: SINUS BRADYCARDIA NONSPECIFIC T-WAVE ABNORMALITY BORDERLINE ECG Since PREVIOUS TRACING , no significant change noted PREVIOUS TRACIN04/02/2018 06.48 DOCTOR: Genaro Pillai Interpretating Date/Time 04/02/2018 13:08:06
--- NOTE | 2018-04-02 13:09 | ECG ---
Date Performed: 04/02/2018 Time Performed: 06:48:42 PTAGE: 77 years EKG: Sinus bradycardia. Compared to PREVIOUS TRACING previously seen ST elevation in aVR and ST depressions throughout have resolved, sinus rate is slower. PREVIOUS TRACIN04/01/18 DOCTOR: Genaro Pillai Interpretating Date/Time 04/02/2018 13:07:58
[2018-04-02 15:48] LABS: Baso # (Auto) 0.1 th/mm3 (0.0-0.2); Baso % (Auto) 0.9 % (0.0-2.0); Eos # (Auto) 0.4 th/mm3 (0.0-0.4); Eos % (Auto) 3.9 % (0.0-4.0); Hematocrit 27.3 % (35.0-46.0); Hemoglobin 8.7 gm/dL (11.6-15.3); Lymph # (Auto) 1.5 th/mm3 (1.0-4.8); Lymph % (Auto) 16.4 % (9.0-44.0); Mean Corpuscular HGB Conc 31.9 % (32.0-36.0); Mean Corpuscular Hemoglobin 27.5 pg (27.0-34.0); Mean Corpuscular Volume 86.4 fL (80.0-100.0); Mean Platelet Volume 11.2 fL (7.0-11.0); Mono # (Auto) 0.6 th/mm3 (0.0-0.9); Mono % (Auto) 6.8 % (0.0-8.0); Neut # (Auto) 6.6 th/mm3 (1.8-7.7); Platelet Count 190 th/mm3 (150-450); Red Blood Count 3.16 mil/mm3 (4.00-5.30); Red Cell Distribution Width 15.4 % (11.6-17.2); White Blood Count 9.1 th/mm3 (4.0-11.0)
--- NOTE | 2018-04-02 16:13 | MB ---
cc: Sonu Mendez MD,Yoel COLLINS DATE: 04/02/2018 REASON FOR CONSULTATION: Non-ST elevation myocardial infarction/pulmonary edema. I am covering for Dr. Caba. HISTORY OF PRESENT ILLNESS: Ms. Jonas is a 77-year-old female with a history of morbid obesity, hypertension, hyperlipidemia, diabetes mellitus. History of coronary artery disease with prior PCI in the past. She used to follow with Dr. Caba, [place] then [place] moved [place]. She is intubated and sedated, so the history is obtained mostly and my notes are from the chart as well as talking to the son and a daughter at the bedside. So, she was complaining of "indigestion" and took Rolaids and then she was feeling "terrible," progressively short of breath. Then she vomited and had bowel movements, and because of her clenching on her chest and the above symptoms, the daughter ended up calling [facility] and she was brought to the hospital where she was found to have "bilateral rales" and blood pressure was elevated at 260/180 mmHg and increased respiratory distress requiring initially BiPAP, but she was then intubated. She was given also 100 mg of IV Lasix. Then she was brought eventually to the unit and is currently sedated with propofol. A chest x-ray showed pulmonary edema. She was started on nitroglycerin drip and her FiO2 is down now to 40%. PAST MEDICAL AND SURGICAL HISTORY: 1. As was mentioned above. 2. History of hysterectomy. 3. Hyperlipidemia, not on statins because she feels "bad on them," according to the daughter. 4. History of hypertension. I am not sure how compliant she is with her medications and diet. 5. Arthroscopic surgery of the right knee in the past. 6. Coronary PCI in the past. 7. History of cholecystectomy. SOCIAL HISTORY: Smoking: She used to smoke, but stopped many years ago. Denies ETOH abuse. MEDICATIONS: Currently, she is on IV nitroglycerin drip, propofol, as well as now started on Aggrastat as well as IV heparin. She is also on amlodipine 10 mg daily, aspirin 81 mg daily, Pepcid 10 IV every 12 hours, fentanyl p.r.n., Lasix 40 mg IV every 12 hours, glucagon 1 mg p.r.n., albuterol nebulizers, and milk of magnesium 30 mL every 12 hours p.r.n. PHYSICAL EXAMINATION: GENERAL: A 77-year-old lady, intubated and sedated, mechanically ventilated. VITAL SIGNS: Blood pressure is 102/60, however, was higher before. We just turned down the IV nitroglycerin dose. Pulse is 58 beats per minute and regular. She is on FiO2 of 40%. Afebrile. Respiratory rate is around 16 beats per minute assisted. HEENT: Shows head is normocephalic. Pupils are equal and reactive. Throat is within normal limits. NECK: Supple. No carotid bruit. No thyromegaly. No jugular venous distention noted. LUNGS: Show a few crepitations and rhonchi at the bases. CARDIOVASCULAR: S1, S2 normal with a 1/6 systolic murmur. Faint S4 gallop. Distant heart beats. ABDOMEN: Obese, lax. Normoactive bowel sounds. No organomegaly. No masses felt. EXTREMITIES: With +1 pitting edema in lower extremities bilaterally with diminished distal pulses. NEUROLOGIC: Difficult to assess in her current condition with sedation. RECTAL: Deferred. LABORATORY DATA: Shows a blood gas from last night with a pH of 7.33, pCO2 of 47, pO2 of 156. This was on 60% FiO2. Coagulation studies were within normal limits. CBC initially shows a white count of 13.2, is down to 9.4, hemoglobin of 10.7, down to 9, and a platelet count today of 175. Chemistry showed a BUN of 56, creatinine 2.41, and repeat today is 54 and 2.40 with a potassium of 5.3 and a sodium 141. LFTs are within normal limits. BNP was mildly elevated at 764. Troponin I was 0.03, then up to 7.87. Her EKG when she came was in sinus rhythm with ST depression more prominent in the lateral precordial leads, and on the EKG this morning she is in sinus bradycardia with resolution of her ST segment depression. Chest x-ray suggestive of fluid overload. ASSESSMENT AND RECOMMENDATIONS: 1. Non-ST elevation myocardial infarction on top of renal insufficiency and respiratory failure requiring intubation and mechanical ventilation. At the present time, we will continue her medical therapy. With the resolution of her ST segment changes, I do not see the need for taking her emergently to the cardiac catheterization lab, especially with the underlying kidney function. Would continue cautious diuresing and follow up her electrolytes, TSH, free T4 levels, and kidney function on a daily basis. Follow up her H and H while she is on heparin and also glycoprotein IIb/IIIa inhibitors. An echocardiogram will be obtained to assess her LV function and any significant valve pathology. Further recommendations will follow. Statin should be added to her regimen and I will leave the NG tube feeding up to critical care. 2. Hypertension, currently controlled. I would not start an LIZ inhibitor or an angiotensin receptor kelsey because of her hyperkalemia and underlying renal insufficiency. At the present time. Her heart rate is too low to add a beta kelsey. Continue with calcium channel blockers as indicated and alpha-1 blocking agents can be added if needed. Further recommendations will follow. MD JASS Steve/margareth , 11:22 AM , 11:36 AM
[2018-04-03] MEDS: Propofol 1000 mg/100 ml Inj 1,000 MG/100 ML BOTTLE IV.CONT PRN ×7 (02:39→23:39)
[2018-04-03] MEDS: Oral Hygiene Kit OROPHARYNG SCH ×5 (03:22→23:56)
[2018-04-03] MEDS: Insulin NovoLOG Aspart Correctional Sugar Inj SQ SCH ×6 (03:22→23:55)
[2018-04-03] MEDS: Chlorhexidine Gluconate 2% 1 Pack (2 Cloths) TOPICAL SCH (03:22)
[2018-04-03 03:59] LABS: Hematocrit 27.1 % (35.0-46.0); Hemoglobin 8.9 gm/dL (11.6-15.3); Mean Corpuscular HGB Conc 32.6 % (32.0-36.0); Mean Corpuscular Hemoglobin 27.7 pg (27.0-34.0); Mean Corpuscular Volume 84.8 fL (80.0-100.0); Mean Platelet Volume 11.6 fL (7.0-11.0); Platelet Count 199 th/mm3 (150-450); Red Cell Distribution Width 15.7 % (11.6-17.2)
[2018-04-03 04:49] LABS: Calcium 8.6 mg/dL (8.5-10.1); Carbon Dioxide 27.1 meq/L (21.0-32.0); Phosphorus 4.8 mg/dL (2.5-4.9); Potassium 4.6 meq/L (3.5-5.1)
[2018-04-03 04:59] LABS: Free T4 (Free Thyroxine) 1.25 ng/dL (0.76-1.46); Thyroid Stimulating Hormone 0.673 uIU/mL (0.358-3.740)
[2018-04-03] MEDS: Heparin Drip 25,000 UNIT/250 ML BAG IV.CONT PRN (05:39)
[2018-04-03] MEDS: amLODIPine 5 MG Tablet NG/OG SCH (08:37)
[2018-04-03] MEDS: Senna/Docusate Sodium 8.6/50 MG Tablet PO SCH ×2 (08:38→21:23)
[2018-04-03] MEDS: Famotidine PF Inj 20 MG/2 ML Vial IV.PUSH SCH ×2 (08:38→21:24)
[2018-04-03] MEDS: Chlorhexidine 0.12% Oral Kit 15 ML UDC OROPHARYNG SCH ×3 (08:39→22:18)
--- NOTE | 2018-04-03 13:05 | P.CONNP ---
History of Present Illness Service: Nephrology Consult date: 04/03/18 Requesting Physician: Sonu Mendez Reason for Consult: Acute on chronic kidney disease Primary Care Provider: Michelle Subramanian MD Family Provider: Michelle Subramanian MD Chief Complaint: SOB History of Present Illness: Patient is a 77-year-old white female with known history of chronic kidney disease stage IV: Diabetes, hypertension, coronary artery disease, peripheral vascular disease who follows with Dr. OJEDA, she has increasing shortness of breath and peripheral edema and has been admitted and intubated, patient received Lasix 100 mg higher dose was given with good diuresis so currently on 40 mg IV daily, patient is on ventilator, according to the daughter says she had stage IV chronic kidney disease and diuretics were used as as needed basis but again feet swelling returned and she has increasing shortness of breath, her condition worsened and she has to come to the emergency. Blood pressure was high at 238/109. Review of Systems unobtainable due to endotracheal tube PMFSH - History History Provided By: Ip Paralegal / EMT - Medical History Medical History: Medical History (Last Updated 04/03/18 @ 12:55 by Odessa Chapman MD) CAD (coronary artery disease) Diabetes H/O: hysterectomy HLD (hyperlipidemia) HTN (hypertension) Peripheral vascular disease - Surgical History Surgical History: Surgical History (Last Updated 04/03/18 @ 12:54 by Odesas Chapman MD) H/O arthroscopy of right knee H/O carotid endarterectomy H/O heart artery stent History of cholecystectomy - Family History Family History: Family History (Last Updated 04/02/18 @ 04:11 by Aileen Tipton MD) Other Family history unknown - Tobacco History Smoking Status: Former smoker - Alcohol History How Often Do You Have a Drink Containing Alcohol: Unable to Obtain - Substance Use History Substance History: Unable to Obtain - Travel History Recent Travel in the [place] Within the Last 8 Weeks: No Recent Travel Out of the Country Within the Last 8 Weeks: No - Immunization History Tetanus Immunization: Unable to Assess Hx Influenza Vaccine This Season: Unable to Assess Medications and Allergies Active Medications: Active Medications Hydrocodone Bitart/Acetaminophen ([place] 5/325) 1 tab PO Q4H PRN PRN Reason: pain Al Hydroxide/Mg Hydroxide (Milk Of Magnesia Liq) 30 ml PO Q12H PRN PRN Reason: Mild Constipation Albuterol (Albuterol Neb (Prn)) 2.5 mg NEB Q2HR NEB PRN PRN Reason: SHORTNESS OF BREATH/WHEEZING Albuterol (Duoneb Neb (Ministerio)) 1 ampul NEB Q6HR NEB [facility] Last Admin: 04/03/18 08:09 Dose: 1 ampul Amlodipine Besylate (Norvasc) 10 mg NG/OG DAILY [facility] Last Admin: 04/03/18 08:37 Dose: 10 mg Aspirin (Aspirin Chew) [address] [facility] Last Admin: 04/03/18 08:38 Dose: 81 mg Bisacodyl (Dulcolax Supp) 10 mg RECTAL DAILY PRN PRN Reason: SEVERE CONSITIPATION Chlorhexidine Gluconate (Chlorhexidine 2% Cloth) 3 pack TOPICAL DAILY@0400 [facility] Stop: 04/07/18 03:59 Last Admin: 04/03/18 03:22 Dose: 3 pack Chlorhexidine Gluconate (Chlorhexidine 2% Cloth) 3 pack TOPICAL DAILY@0400 PRN PRN Reason: Extra cloth needed Stop: 04/07/18 03:59 Chlorhexidine Gluconate (Peridex 0.12% Oral Kit) 15 ml OROPHARYNG BID@0800, 1999 [facility] Last Admin: 04/03/18 08:39 Dose: 15 ml Dextrose (D50w Vial) 50 ml IV.PUSH UNSCH PRN PRN Reason: PER HYPOGLYCEMIA PROTOCOL Famotidine (Pepcid Pf Inj) [address] [facility] Last Admin: 04/03/18 08:38 Dose: 10 mg Fentanyl Citrate (Fentanyl Inj) 50 mcg IV PUSH Q1H PRN PRN Reason: breakthrough pain/sedation Furosemide (Lasix Inj) [address] [facility] Glucagon (Glucagon Inj) 1 mg OTHER PRN PRN PRN Reason: for Hypoglycemia Protocol Nitroglycerin/Dextrose (Nitroglycerin Drip Premix) 50 mg in 250 mls @ 0 mls/hr IV.CONT TITRATE PRN; Protocol PRN Reason: Per Protocol Last Titration: 04/03/18 03:15 Dose: 0 mcg/min, 0 mls/hr Propofol (Diprivan 1000 Mg/100 Ml Inj) 1,000 mg in 100 mls @ 2.994 mls/hr IV.CONT TITRATE PRN; Protocol PRN Reason: Per Protocol Last Admin: 04/03/18 12:03 Dose: 50 mcg/kg/min, 29.94 mls/hr Heparin Sodium/Dextrose (Heparin/D5w 25,000 U/250 Ml) 25,000 unit in 250 mls @ 0 mls/hr IV.CONT TITRATE PRN; Protocol PRN Reason: Per Protocol Last Admin: 04/03/18 05:39 Dose: 1,200 units/hr, 12 mls/hr Insulin Aspart (Novolog Insulin Correctional Sugar Inj) 0 unit SQ Q4HR MINISTERIO; Protocol Last Admin: 04/03/18 08:39 Dose: 2 unit Lactulose (Lactulose Liq) 30 ml PO DAILY PRN PRN Reason: SEVERE CONSITIPATION Ondansetron HCl (Zofran Inj) 4 mg IV.PUSH Q6H PRN PRN Reason: NAUSEA OR VOMITING Pravastatin Sodium (Pravachol) [address] [facility] Last Admin: 04/03/18 08:38 Dose: 40 mg Senna/Docusate Sodium (Paty-Colace) [address] [facility] Last Admin: 04/03/18 08:38 Dose: 1 tab Sennosides (Senokot) 17.2 mg PO Q12H PRN PRN Reason: Moderate Constipation Sodium Chloride (Ns Flush) [address] [facility] Last Admin: 04/03/18 08:40 Dose: 2 ml Sodium Chloride (Ns Flush) 2 ml IV.FLUSH PRN PRN PRN Reason: FLUSH AFTER USING IV ACCESS Allergies Allergy/AdvReac Type Severity Reaction Status Date / Time atorvastatin Allergy Severe ALL Unverified 03/23/17 22:36 STATINS CAUSE ACHING AND UNABLE TO WALK penicillin G Allergy Intermediate GENERALIZED Unverified 03/23/17 22:36 EDEMA Home Medications Medication Instructions Recorded Confirmed Type Unable to Obtain Home Meds 04/01/18 04/01/18 History Exam Vital signs: Vital Signs 04/02/18 14:00 04/02/18 14:50 04/02/18 16:00 Temperature 97.8 F Pulse Rate 54 L 51 L Respiratory Rate 16 16 Blood Pressure 139/61 Pulse Oximetry 100 100 04/02/18 16:14 04/02/18 17:34 04/02/18 18:00 Temperature Pulse Rate 51 L 61 Respiratory Rate 16 16 Blood Pressure Pulse Oximetry 99 04/02/18 20:00 04/02/18 20:45 04/02/18 22:00 Temperature 98.6 F Pulse Rate 70 70 72 Respiratory Rate 18 19 Blood Pressure 204/90 H Pulse Oximetry 99 98 04/03/18 00:00 04/03/18 01:05 04/03/18 02:00 Temperature 98.7 F Pulse Rate 71 73 Respiratory Rate 16 16 Blood Pressure 150/66 H Pulse Oximetry 100 100 04/03/18 04:00 04/03/18 04:01 04/03/18 06:00 Temperature 98.6 F Pulse Rate 66 66 63 Respiratory Rate 16 16 Blood Pressure 109/54 L Pulse Oximetry 99 99 04/03/18 08:00 04/03/18 12:31 Temperature 98.8 F Pulse Rate 59 L Respiratory Rate 16 16 Blood Pressure 124/60 Pulse Oximetry 99 97 Intake & Output 04/02/18 04/03/18 04/03/18 18:59 06:59 18:59 Intake Total 660 / 660 450 / 450 200 / 200 Output Total 1050 / 1050 525 / 525 Balance -390 / -390 -75 / -75 200 / 200 Intake: IV 660 / 660 450 / 450 200 / 200 Heparin/D5W 25,000 U/250 mL 25, 250 / 250 000 unit In 250 ml @ Per Protocol IV.CONT TITRATE PRN Rx #:[id number] Nitroglycerin Drip Premix 50 mg 250 / 250 In 250 ml @ Per Protocol IV. CONT TITRATE PRN Rx#:[id number] Diprivan 1000 mg/100 ml Inj 1, 300 / 300 200 / 200 200 / 200 000 mg In 100 ml @ 5 MCG/KG/MIN 2.994 mls/hr IV.CONT TITRATE PRN Rx#:[id number] Calcium Gluconate Inj 1 GM In 110 / 110 NS Inj 100 ML @ 110 mls/hr IV. SIG ONCE ONE Rx#:[id number] Oral 0 / 0 Output: Urine Amount (Catheter) 1050 / 1050 525 / 525 Indwelling Urethral Catheter 1050 / 1050 525 / 525 Other: Date of Last Bowel Movement 04/01/18 04/01/18 04/01/18 # Bowel Movements 0 - Constitutional no acute distress (Intubated) - Routine HEENT Exam Head: Present: normocephalic - Routine Neck Exam Present: supple - Routine Respiratory Exam Present: CTA bilaterally - Routine Cardiovascular Exam Present: S1, S2 - Routine Abdominal Exam Present: soft, normoactive bowel sounds - Routine Extremities Exam Present: edema - Routine Neurological Exam Present: altered mental status Results - Lab Results 04/03/18 03:25 04/03/18 03:25 Most recent lab results ABG pH 7.33 (7.380-7.420) L 04/01/18 21:50 ABG pCO2 47 mmHg (38-42) H 04/01/18 21:50 ABG pO2 156 mmHg (61-120) H 04/01/18 21:50 ABG HCO3 24 mmol/L (22-26) 04/01/18 21:50 Calcium 8.6 mg/dL (8.5-10.1) D 04/03/18 03:25 Phosphorus 4.8 mg/dL (2.5-4.9) 04/03/18 03:25 Magnesium 2.1 mg/dL (1.5-2.5) 04/01/18 21:20 Assessment and Plan - Assessment (1) Chronic kidney disease, stage 4, severely decreased GFR Code(s): N18.4 - Chronic kidney disease, stage 4 (severe) Status: Acute (2) Congestive heart failure Code(s): I50.9 - Heart failure, unspecified Status: Acute (3) Respiratory failure Code(s): J96.90 - Respiratory failure, unspecified, unspecified whether with hypoxia or hypercapnia Status: Acute (4) Hypertension Code(s): I10 - Essential (primary) hypertension Status: Acute (5) Diabetes Code(s): E11.9 - Type 2 diabetes mellitus without complications Status: Acute - Plan Patient has advanced kidney failure in chronic kidney disease stage IV by history: Diuretic has been readmitted with the results creatinine is slightly elevated creatinine 2.8 Patient is critically ill, intubated Possibility of heart catheterization discussed with the family This likely patient may end up on hemodialysis after dye procedure, family made aware of possibility of hemodialysis Prevention from dye toxicity discussed that will mean stopping the diuretic and giving her back IV fluids and this may also carries risk of congestive heart failure. They are not keen on pursuing invasive procedures. Continue to monitor renal functions I agree with Lasix 40 mg IV daily Avoid nephrotoxins Monitor diabetes and blood pressure.
[2018-04-03] MEDS: Tirofiban Inj 12,500 MCG/250 ML PLAST..BAG IV.CONT SCH (13:36)
--- NOTE | 2018-04-03 13:36 | P.DIET ---
Nutritional Evaluation Type of nutrition evaluation: initial Nutrition consult regarding: Tube Feeding Nutrition [place]: [facility] [place]: 04/03 [facility] [place] Objective - Diagnosis CHF, Respiratory Failure, Hyperkalemia - Objective [place] body weight: 57 kg Body Weight Used for Calculations: IBW Energy Needs - Lower Range (kCal/kg): 28 Energy Needs - Upper Range (kCal/kg): 33 Lower Limit kCal/kg (kCals): 1,596 Upper Limit kCal/kg (kCals): 1,881 Lower Limit Protein Factor (Grams per Kg): 1.2 Upper Limit Protein Factor (Grams per Kg): 1.5 Lower Protein Needs (Protein): 68 Upper Protein Needs (Protein): 86 Dietitian Reviewed in Medical Record: Curent medications, Intake & Output, Labs , Medical history, Tube feeding Diet Order: TF only Objective Comments: PMH: CAD, DM, HLD, HTN, PVD, Obesity, CKD Stage IV Labs include: Cr 2.82, Glucose 240, POC Glucose 247, 195, 217 Meds include: Lasix, Novolog, propofol LBM: 04/01 Assessment Assessment: Pt at nutritional risk r/t current clinical status. Pt intubated and sedated on propofol, current rate of 30ml/hr will provide an additional 792kcals/24 hrs. Nutritional needs based on ideal body wt, no current actual wt available. Based on pt's Stage IV kidney disease and no accurate wt, recommend TF Nepro with goal rate of 40 ml/hr to provide 1728 kcals, 78gms protein and 698mls free water. Will monitor TF tolerance, clinical course. Recommendations: Recommend TF Nepro with goal rate 40 ml/hr Dietitian to Monitor: Lab values, Renal labs, Glucose level, Intake & Output, Tube feeding tolerance, Weight change, Medical course
[2018-04-03] MEDS: Nitroglycerin Drip Premix 50 MG/250 ML BOTTLE IV.CONT PRN (15:32)
--- NOTE | 2018-04-03 16:13 | ECHRPT ---
Indication: SOB CONCLUSIONS Normal left ventricular size. Mild concentric left ventricular hypertrophy. The left ventricular systolic function is grossly normal, LVEF 55-60% [id number] mitral valve regurgitation. Moderate mitral annular calcification. Aortic valve sclerosis is present. There is trace tricuspid valve regurgitation. The pulmonary valve is not well visualized. There is less than 50% respiratory change in dimension of the inferior vena cava (abnormal). Very technically difficult/limited study. BP: / HR: Rhythm: Sinus MEASUREMENTS (Male / Female) Normal Values Technical Quality:Very technically difficult study 2D ECHO LV Diastolic Diameter PLAX 4.0 cm 4.2 - 5.9 / 3.9 - 5.3 cm LV Systolic Diameter PLAX 2.3 cm IVS Diastolic Thickness 1.1 cm 0.6 - 1.0 / 0.6 - 0.9 cm LVPW Diastolic Thickness 1.1 cm 0.6 - 1.0 / 0.6 - 0.9 cm LV Relative Wall Thickness 0.6 RV Internal Dim ED PLAX 1.8 cm LVOT Diameter 1.8 cm Aortic Root Diameter 1.9 cm LA Systolic Diameter LX 2.7 cm 3.0 - 4.0 / 2.7 - 3.8 cm M-MODE AV Cusp Separation MM 1.8 cm DOPPLER AV Peak Velocity 201.0 cm/s AV Peak Gradient 16.2 mmHg AV Mean Gradient 7.0 mmHg AV Velocity Time Integral 29.9 cm LVOT Peak Velocity 91.7 cm/s LVOT Peak Gradient 3.4 mmHg LVOT Velocity Time Integral 16.1 cm AV Area Cont Eq vti 1.4 cm AV Area Cont Eq pk 1.2 cm Mitral E Point Velocity 67.1 cm/s Mitral A Point Velocity 94.8 cm/s Mitral E to A Ratio 0.7 LV E' Lateral Velocity 5.1 cm/s Mitral E to LV E' Lateral Ratio 13.2 LV E' Septal Velocity 7.9 cm/s Mitral E to LV E' Septal Ratio 8.5 PV Peak Velocity 84.2 cm/s PV Peak Gradient 2.8 mmHg FINDINGS LEFT VENTRICLE Normal left ventricular size. Mild concentric left ventricular hypertrophy. The left ventricular systolic function is grossly normal. RIGHT VENTRICLE Normal right ventricular size and systolic function. LEFT ATRIUM The left atrial size is normal. RIGHT ATRIUM The right atrial size is normal. ATRIAL SEPTUM No atrial level shunt is demonstrated by color flow Doppler interrogation. AORTA The aortic root and proximal ascending aorta are not well visualized. MITRAL VALVE [id number] mitral valve regurgitation. Moderate mitral annular calcification. AORTIC VALVE Aortic valve sclerosis is present. TRICUSPID VALVE There is trace tricuspid valve regurgitation. PULMONARY VALVE The pulmonary valve is not well visualized. VESSELS There is less than 50% respiratory change in dimension of the inferior vena cava (abnormal). PERICARDIUM No pericardial effusion. Genaro Pillai MD (Electronically Signed) Final Date:03 April 2018 16:12
--- NOTE | 2018-04-03 17:13 | P.PNCC ---
Subjective Subjective Remarks/Hospital Course: Hospital Course: Unable to obtain history from patient due to intubation. History obtained from discussion with Dr. Eduardo and with review of medical records. 77-year-old female with past medical history of hypertension, hyperlipidemia, diabetes, coronary artery disease with prior stenting 2003, reported history of CHF (no prior echo here). EVAC was summoned due to respiratory distress. She was hypoxic at the scene despite nonrebreather. She was started on BiPAP but ultimately required intubation at the scene. Her BP was 260/180 and she had bilateral rales and reported increased pedal edema. She was given Lasix 100 mg IV. Upon arrival she was sedated with propofol. Chest x-ray showed pulmonary edema. She was started on a nitroglycerin drip. She has diuresed 800 mL's. Afebrile. Subjective: 04/03: remains intubated and sedated. agitated on sedation vacation, not following commands. yesterday placed on aggrastat and heparin for ACS. trops stable at ~7. today, bleeding from the hypopharynx which was initially very active, and we held all anticoagulation. after this stopped, we restarted heparin alone. forced diuresis continues and patient has net negative balance with improving BNP. Objective Vital Signs / I&O: Vital Signs 04/02/18 17:34 04/02/18 18:00 04/02/18 20:00 Temperature 37.0 C Pulse Rate 61 70 Respiratory Rate 16 18 Blood Pressure 204/90 H Pulse Oximetry 99 99 04/02/18 20:45 04/02/18 22:00 04/03/18 00:00 Temperature 37.1 C Pulse Rate 70 72 71 Respiratory Rate 19 16 Blood Pressure 150/66 H Pulse Oximetry 98 100 04/03/18 01:05 04/03/18 02:00 04/03/18 04:00 Temperature 37.0 C Pulse Rate 73 66 Respiratory Rate 16 16 Blood Pressure 109/54 L Pulse Oximetry 100 99 04/03/18 04:01 04/03/18 06:00 04/03/18 08:00 Temperature 37.1 C Pulse Rate 66 63 59 L Respiratory Rate 16 16 Blood Pressure 124/60 Pulse Oximetry 99 99 04/03/18 10:00 04/03/18 12:00 04/03/18 12:31 Temperature 37.2 C Pulse Rate 66 75 Respiratory Rate 16 16 Blood Pressure 175/79 H Pulse Oximetry 97 97 04/03/18 14:00 04/03/18 15:00 04/03/18 16:39 Temperature Pulse Rate 83 95 H Respiratory Rate 16 16 Blood Pressure Pulse Oximetry 97 Intake & Output 04/02/18 04/03/18 04/03/18 18:59 06:59 18:59 Intake Total 660 / 660 450 / 450 775 / 775 Output Total 1050 / 1050 525 / 525 Balance -390 / -390 -75 / -75 775 / 775 Intake: IV 660 / 660 450 / 450 775 / 775 Heparin/D5W 25,000 U/250 mL 25, 250 / 250 000 unit In 250 ml @ Per Protocol IV.CONT TITRATE PRN Rx #:[id number] Nitroglycerin Drip Premix 50 mg 250 / 250 250 / 250 In 250 ml @ Per Protocol IV. CONT TITRATE PRN Rx#:[id number] Diprivan 1000 mg/100 ml Inj 1, 300 / 300 200 / 200 300 / 300 000 mg In 100 ml @ 5 MCG/KG/MIN 2.994 mls/hr IV.CONT TITRATE PRN Rx#:[id number] Aggrastat Inj 12,500 mcg In 250 225 / 225 ml @ 0.075 MCG/KG/MIN 8.981 mls/hr IV.CONT .Q24H VIVEK Rx#: [id number] Calcium Gluconate Inj 1 GM In 110 / 110 NS Inj 100 ML @ 110 mls/hr IV. SIG ONCE ONE Rx#:[id number] Oral 0 / 0 Output: Urine Amount (Catheter) 1050 / 1050 525 / 525 Indwelling Urethral Catheter 1050 / 1050 525 / 525 Other: Date of Last Bowel Movement 04/01/18 04/01/18 04/01/18 # Bowel Movements 0 Result Diagrams: 04/03/18 03:25 04/03/18 03:25 Objective Remarks: GENERAL: Obese elderly female, lying in bed, intubated, sedated HEENT: Normocephalic. Atraumatic. Pupils equal, round, reactive, conjugate. Mucous membranes are moist NECK: Trachea is midline. Positive JVD up to the mid neck CHEST: Equal chest rise. PRVC mode of ventilation. CARDIOVASCULAR: Normal rate, regular rhythm. Sinus. ABDOMEN: Obese, soft, nontender, nondistended. No guarding. MUSCULOSKELETAL: Pulses 2+. No peripheral edema. NEUROLOGICAL: RASS -3. Withdraws to pain. Does not follow commands. Assessment and Plan - Assessment and Plan Plan: Assessment: 77-year-old female with acute diastolic heart failure exacerbation with concomitant acute non-ST elevation myocardial infarction, most likely type II secondary to demand ischemia and hypertensive emergency, but possibly type I. Remains critically ill with minimal improvements in the last 24 hours. NEURO: Acute metabolic encephalopathy Propofol for sedation Target RASS -2 Daily sedation vacation Lortab as needed for pain. Fentanyl as needed for breakthrough pain. RESP: Acute hypoxemic respiratory failurepersistent Prior tobacco abuse PRVC. Ventilator bundle. Wean FiO2 for sats greater than 92%. CPAP trial in a.m. Failing CPAP trials for agitation and mental status CV: Acute severe pulmonary edema Hypertensive emergency Acute non-ST elevation myocardial infarction, likely type II Elevated troponins History of coronary artery disease with prior stent 2003 Hyperlipidemia Acute diastolic heart failure exacerbation Serial troponins, EKG, obtain 2D echo. Continue forced diuresis Continue nitroglycerin drip target systolic blood pressure less than 140. Continues to be too bradycardic for beta-blockers Norvasc 10 mg daily. No LIZ inhibitor at this time due to kidney injury Previously intolerant to statin. ASA 81 daily. Heparin drip GI: Obesity OGT in place. Start tube feeds FEN/RENAL: Renal insufficiency. Acuity of this is unknown. Most recent available creatinine was 0.9 06/2009. Fernando is in place. Daily BMP Hyperkalemiaresolving Trend on BMP ID: Afebrile. Seems much less likely to be of infectious etiology at this point so we will monitor off antibiotics.. No significant secretions with suctioning. monitor. HEME: Monitor CBC ENDO: Diabetes mellitus Monitor bedside glucose every 6 hours and administer medium dose sliding scale as indicated. PROPH: SCDs and heparin drip for DVT prophylaxis. Famotidine IV for stress ulcer prophylaxis. ACCESS: PIV providing adequate access at this time This patient remains critically ill with one or more organ systems which are or may become a threat to life. I have spent in excess of 33 minutes discontinuously in the care and management of this patient. I specifically managed active bleeding, coagulopathy, myocardial ischemia, agitation, hypoxia. This time is exclusive of procedures, and includes, but is not limited to, evaluation of the patient, review of the medical record, discussions with family , consultants, nursing staff, or respiratory therapy, and documentation in the medical record.
[2018-04-04] MEDS: Propofol 1000 mg/100 ml Inj 1,000 MG/100 ML BOTTLE IV.CONT PRN ×3 (02:48→16:47)
[2018-04-04] MEDS: Insulin NovoLOG Aspart Correctional Sugar Inj SQ SCH ×5 (03:40→22:00)
[2018-04-04 03:58] LABS: Baso # (Auto) 0.1 th/mm3 (0.0-0.2); Baso % (Auto) 0.7 % (0.0-2.0); Eos # (Auto) 0.2 th/mm3 (0.0-0.4); Eos % (Auto) 1.7 % (0.0-4.0); Hematocrit 28.1 % (35.0-46.0); Hemoglobin 8.9 gm/dL (11.6-15.3); Lymph % (Auto) 8.7 % (9.0-44.0); Mean Corpuscular HGB Conc 31.8 % (32.0-36.0); Mean Corpuscular Hemoglobin 27.1 pg (27.0-34.0); Mean Corpuscular Volume 85.1 fL (80.0-100.0); Mean Platelet Volume 11.2 fL (7.0-11.0); Mono # (Auto) 0.7 th/mm3 (0.0-0.9); Mono % (Auto) 6.7 % (0.0-8.0); Neut # (Auto) 9.1 th/mm3 (1.8-7.7); Neut % (Auto) 82.2 % (16.0-70.0); Platelet Count 214 th/mm3 (150-450); Red Cell Distribution Width 15.6 % (11.6-17.2); White Blood Count 11.1 th/mm3 (4.0-11.0)
[2018-04-04] MEDS: Oral Hygiene Kit OROPHARYNG SCH ×3 (04:18→18:26)
[2018-04-04 04:20] LABS: Carbon Dioxide 25.2 meq/L (21.0-32.0); Potassium 4.2 meq/L (3.5-5.1)
[2018-04-04 04:30] LABS: Prothrombin Time 10.6 sec (9.8-11.6)
[2018-04-04] MEDS: Chlorhexidine Gluconate 2% 1 Pack (2 Cloths) TOPICAL SCH (05:29)
[2018-04-04] MEDS: Nitroglycerin Drip Premix 50 MG/250 ML BOTTLE IV.CONT PRN (05:30)
[2018-04-04] MEDS: Famotidine PF Inj 20 MG/2 ML Vial IV.PUSH SCH ×2 (08:52→22:00)
[2018-04-04] MEDS: Senna/Docusate Sodium 8.6/50 MG Tablet PO SCH ×2 (08:52→22:00)
[2018-04-04] MEDS: amLODIPine 5 MG Tablet NG/OG SCH (08:52)
[2018-04-04] MEDS: Chlorhexidine 0.12% Oral Kit 15 ML UDC OROPHARYNG SCH ×2 (08:55→21:59)
--- NOTE | 2018-04-04 11:10 | P.PNNP ---
Subjective Interval history: Patient is on ventilator Physical Exam Vital signs: Vital Signs 04/03/18 12:00 04/03/18 12:31 04/03/18 14:00 Temperature 98.9 F Pulse Rate 75 83 Respiratory Rate 16 16 Blood Pressure 175/79 H Pulse Oximetry 97 97 04/03/18 15:00 04/03/18 16:00 04/03/18 16:39 Temperature 98.9 F Pulse Rate 95 H 82 Respiratory Rate 16 16 16 Blood Pressure 139/63 Pulse Oximetry 97 97 04/03/18 18:00 04/03/18 19:35 04/03/18 20:00 Temperature 99.9 F H Pulse Rate 96 H 96 H Respiratory Rate 16 16 Blood Pressure 143/63 H Pulse Oximetry 98 96 04/03/18 21:04 04/03/18 22:00 04/03/18 22:22 Temperature Pulse Rate 98 H 103 H Respiratory Rate 16 16 Blood Pressure Pulse Oximetry 99 04/04/18 00:00 04/04/18 01:25 04/04/18 02:00 Temperature 99 F Pulse Rate 96 H 89 Respiratory Rate 16 16 Blood Pressure 111/59 L Pulse Oximetry 99 94 L 04/04/18 04:00 04/04/18 04:20 04/04/18 04:38 Temperature 99.2 F Pulse Rate 79 73 Respiratory Rate 17 16 16 Blood Pressure 142/62 H Pulse Oximetry 99 98 04/04/18 05:00 04/04/18 05:15 04/04/18 05:30 Temperature Pulse Rate 84 81 80 Respiratory Rate 16 16 16 Blood Pressure 104/52 L 111/56 L 124/53 L Pulse Oximetry 98 98 98 04/04/18 05:45 04/04/18 06:00 04/04/18 06:15 Temperature Pulse Rate 79 79 77 Respiratory Rate 16 16 16 Blood Pressure 114/52 L 112/56 L 112/56 L Pulse Oximetry 98 98 99 04/04/18 06:30 04/04/18 06:45 04/04/18 07:00 Temperature Pulse Rate 79 79 78 Respiratory Rate 16 16 16 Blood Pressure 115/57 L 119/58 L 110/55 L Pulse Oximetry 99 99 99 04/04/18 07:15 04/04/18 07:30 04/04/18 07:45 Temperature Pulse Rate 76 86 80 Respiratory Rate 16 18 16 Blood Pressure 108/55 L 176/81 H 186/81 H Pulse Oximetry 99 100 99 04/04/18 08:00 04/04/18 08:15 04/04/18 08:27 Temperature 98.5 F Pulse Rate 81 80 Respiratory Rate 16 17 12 Blood Pressure 188/86 H 182/78 H Pulse Oximetry 99 98 100 04/04/18 08:30 04/04/18 08:45 04/04/18 08:56 Temperature Pulse Rate 81 86 86 Respiratory Rate 17 18 17 Blood Pressure 195/83 H 182/77 H 190/79 H Pulse Oximetry 98 97 97 04/04/18 09:00 04/04/18 09:09 04/04/18 09:15 Temperature Pulse Rate 89 90 94 H Respiratory Rate 18 18 18 Blood Pressure 196/77 H 185/77 H 178/74 H Pulse Oximetry 97 96 96 04/04/18 09:30 04/04/18 09:45 04/04/18 09:57 Temperature Pulse Rate 94 H 108 H 110 H Respiratory Rate 17 24 24 Blood Pressure 177/76 H 172/73 H 181/79 H Pulse Oximetry 95 95 94 L 04/04/18 10:00 04/04/18 10:15 Temperature Pulse Rate 101 H 107 H Respiratory Rate 25 H 25 H Blood Pressure 186/78 H 180/79 H Pulse Oximetry 94 L 93 L Intake & Output 04/03/18 04/04/18 04/04/18 18:59 06:59 18:59 Intake Total 879 / 879 795 / 795 Output Total 750 / 750 300 / 300 Balance 129 / 129 495 / 495 Intake: IV 775 / 775 650 / 650 Nitroglycerin Drip Premix 50 mg 250 / 250 250 / 250 In 250 ml @ Per Protocol IV. CONT TITRATE PRN Rx#:[id number] Diprivan 1000 mg/100 ml Inj 1, 300 / 300 400 / 400 000 mg In 100 ml @ 5 MCG/KG/MIN 2.994 mls/hr IV.CONT TITRATE PRN Rx#:[id number] Aggrastat Inj 12,500 mcg In 250 225 / 225 ml @ 0.075 MCG/KG/MIN 8.981 mls/hr IV.CONT .Q24H [facility] Rx#: [id number] Oral 0 / 0 Tube Feeding 44 / 44 145 / 145 Tube Irrigant 60 / 60 Output: Urine Amount (Catheter) 750 / 750 300 / 300 Indwelling Urethral Catheter 750 / 750 300 / 300 Other: Date of Last Bowel Movement 04/01/18 # Bowel Movements 0 0 - Constitutional no acute distress - Routine Neck Exam Present: supple - Routine Respiratory Exam Present: CTA bilaterally - Routine Cardiovascular Exam Present: RRR - Routine Abdominal Exam Present: soft, normoactive bowel sounds - Routine Extremities Exam Present: edema - Urinary Catheter Management Indwelling Urethral Catheter Cath placed during this visit: yes Reason for continuing: Acute urinary retention Insertion date: 04/01/18 Insertion time: 21:18 Assessment and Plan - Assessment (1) Chronic kidney disease, stage 4, severely decreased GFR Code(s): N18.4 - Chronic kidney disease, stage 4 (severe) Status: Acute (2) Congestive heart failure Code(s): I50.9 - Heart failure, unspecified Status: Acute (3) Respiratory failure Code(s): J96.90 - Respiratory failure, unspecified, unspecified whether with hypoxia or hypercapnia Status: Acute (4) Hypertension Code(s): I10 - Essential (primary) hypertension Status: Acute (5) Diabetes Code(s): E11.9 - Type 2 diabetes mellitus without complications Status: Acute - Plan Patient has advanced kidney failure in chronic kidney disease stage IV by history: Diuretic has been started with the results creatinine is elevated creatinine 3.2 Patient is critically ill, intubated Possibility of heart catheterization discussed with the family This likely patient may end up on hemodialysis after dye procedure, family made aware of possibility of hemodialysis Family initially declined dialysis she has a living will stating no aggressive care Continue to monitor renal functions I agree with Lasix 40 mg IV daily Avoid nephrotoxins Monitor diabetes and blood pressure.
[2018-04-04 12:00] LABS: ABG Base Excess 1.4 mmol/L (-2-2); ABG PCO2 35 mmHg (38-42); ABG PO2 62 mmHG (61-120)
--- NOTE | 2018-04-04 12:44 | P.PNCC ---
Subjective Subjective Remarks/Hospital Course: Hospital Course: Unable to obtain history from patient due to intubation. History obtained from discussion with Dr. Eduardo and with review of medical records. 77-year-old female with past medical history of hypertension, hyperlipidemia, diabetes, coronary artery disease with prior stenting 2003, reported history of CHF (no prior echo here). [facility] was summoned due to respiratory distress. She was hypoxic at the scene despite nonrebreather. She was started on BiPAP but ultimately required intubation at the scene. Her BP was 260/180 and she had bilateral rales and reported increased pedal edema. She was given Lasix 100 mg IV. Upon arrival she was sedated with propofol. Chest x-ray showed pulmonary edema. She was started on a nitroglycerin drip. She has diuresed 800 mL's. Afebrile. Subjective: 04/03: remains intubated and sedated. agitated on sedation vacation, not following commands. yesterday placed on aggrastat and heparin for ACS. trops stable at ~7. today, bleeding from the hypopharynx which was initially very active, and we held all anticoagulation. after this stopped, we restarted heparin alone. forced diuresis continues and patient has net negative balance with improving BNP. 04/04: Remains intubated sedated. UO 1L. creat 3.2. Receiving IV Lasix 40 mg every 24 hours. At this time family is contemplating on dialysis. Dr. kirby is not planning for cardiac catheterization at this time. Because of bleeding from hypopharynx from intubation injury, oral anticoagulation except heparin stopped Objective Vital Signs / I&O: Vital Signs 04/03/18 14:00 04/03/18 15:00 04/03/18 16:00 Temperature 98.9 F Pulse Rate 83 95 H 82 Respiratory Rate 16 16 Blood Pressure 139/63 Pulse Oximetry 97 04/03/18 16:39 04/03/18 18:00 04/03/18 19:35 Temperature Pulse Rate 96 H Respiratory Rate 16 16 Blood Pressure Pulse Oximetry 97 98 04/03/18 20:00 04/03/18 21:04 04/03/18 22:00 Temperature 99.9 F H Pulse Rate 96 H 98 H 103 H Respiratory Rate 16 16 Blood Pressure 143/63 H Pulse Oximetry 96 04/03/18 22:22 04/04/18 00:00 04/04/18 01:25 Temperature 99 F Pulse Rate 96 H Respiratory Rate 16 16 16 Blood Pressure 111/59 L Pulse Oximetry 99 99 94 L 04/04/18 02:00 04/04/18 04:00 04/04/18 04:20 Temperature 99.2 F Pulse Rate 89 79 73 Respiratory Rate 17 16 Blood Pressure 142/62 H Pulse Oximetry 99 04/04/18 04:38 04/04/18 05:00 04/04/18 05:15 Temperature Pulse Rate 84 81 Respiratory Rate 16 16 16 Blood Pressure 104/52 L 111/56 L Pulse Oximetry 98 98 98 04/04/18 05:30 04/04/18 05:45 04/04/18 06:00 Temperature Pulse Rate 80 79 79 Respiratory Rate 16 16 16 Blood Pressure 124/53 L 114/52 L 112/56 L Pulse Oximetry 98 98 98 04/04/18 06:15 04/04/18 06:30 04/04/18 06:45 Temperature Pulse Rate 77 79 79 Respiratory Rate 16 16 16 Blood Pressure 112/56 L 115/57 L 119/58 L Pulse Oximetry 99 99 99 04/04/18 07:00 04/04/18 07:15 04/04/18 07:30 Temperature Pulse Rate 78 76 86 Respiratory Rate 16 16 18 Blood Pressure 110/55 L 108/55 L 176/81 H Pulse Oximetry 99 99 100 04/04/18 07:45 04/04/18 08:00 04/04/18 08:15 Temperature 98.5 F Pulse Rate 80 81 80 Respiratory Rate 16 16 17 Blood Pressure 186/81 H 188/86 H 182/78 H Pulse Oximetry 99 99 98 04/04/18 08:27 04/04/18 08:30 04/04/18 08:45 Temperature Pulse Rate 81 86 Respiratory Rate 12 17 18 Blood Pressure 195/83 H 182/77 H Pulse Oximetry 100 98 97 04/04/18 08:56 04/04/18 09:00 04/04/18 09:09 Temperature Pulse Rate 86 89 90 Respiratory Rate 17 18 18 Blood Pressure 190/79 H 196/77 H 185/77 H Pulse Oximetry 97 97 96 04/04/18 09:15 04/04/18 09:30 04/04/18 09:45 Temperature Pulse Rate 94 H 94 H 108 H Respiratory Rate 18 17 24 Blood Pressure 178/74 H 177/76 H 172/73 H Pulse Oximetry 96 95 95 04/04/18 09:57 04/04/18 10:00 04/04/18 10:15 Temperature Pulse Rate 110 H 101 H 107 H Respiratory Rate 24 25 H 25 H Blood Pressure 181/79 H 186/78 H 180/79 H Pulse Oximetry 94 L 94 L 93 L 04/04/18 12:13 Temperature Pulse Rate Respiratory Rate Blood Pressure Pulse Oximetry 92 L Intake & Output 04/03/18 04/04/18 04/04/18 18:59 06:59 18:59 Intake Total 879 / 879 795 / 795 Output Total 750 / 750 300 / 300 Balance 129 / 129 495 / 495 Intake: IV 775 / 775 650 / 650 Nitroglycerin Drip Premix 50 mg 250 / 250 250 / 250 In 250 ml @ Per Protocol IV. CONT TITRATE PRN Rx#:[id number] Diprivan 1000 mg/100 ml Inj 1, 300 / 300 400 / 400 000 mg In 100 ml @ 5 MCG/KG/MIN 2.994 mls/hr IV.CONT TITRATE PRN Rx#:[id number] Aggrastat Inj 12,500 mcg In 250 225 / 225 ml @ 0.075 MCG/KG/MIN 8.981 mls/hr IV.CONT .Q[facility]H [facility] Rx#: [id number] Oral 0 / 0 Tube Feeding 44 / 44 145 / 145 Tube Irrigant 60 / 60 Output: Urine Amount (Catheter) 750 / 750 300 / 300 Indwelling Urethral Catheter 750 / 750 300 / 300 Other: Date of Last Bowel Movement 04/01/18 # Bowel Movements 0 0 Result Diagrams: 04/04/18 03:31 04/04/18 03:31 Objective Remarks: GENERAL: Obese elderly female, lying in bed, intubated, sedated HEENT: Normocephalic. Atraumatic. Pupils equal, round, reactive, conjugate. Orotracheally intubated NECK: Trachea is midline. Positive JVD up to the mid neck CHEST: Equal chest rise. PRVC mode of ventilation. Basilar crackles CARDIOVASCULAR: Normal rate, regular rhythm. Sinus. ABDOMEN: Obese, soft, nontender, nondistended. No guarding. MUSCULOSKELETAL: Pulses 2+. No peripheral edema. NEUROLOGICAL: RASS -2. Withdraws to pain. Moves extremities spontaneously did not follow command Assessment and Plan - Assessment and Plan Plan: Assessment: 77-year-old female with acute diastolic heart failure exacerbation with concomitant acute non-ST elevation myocardial infarction, most likely type II secondary to demand ischemia and hypertensive emergency, but possibly type I. Remains critically ill with minimal improvements in the last 24 hours. NEURO: Acute metabolic encephalopathy Propofol for sedation. Target RASS -2 Daily sedation vacation Lortab as needed for pain. Fentanyl as needed for breakthrough pain. RESP: Acute hypoxemic respiratory failure Prior tobacco abuse PRVC. Ventilator bundle. Wean FiO2 for sats greater than 92%. CPAP trial failed due to hypoxia and mental status Chest x-ray today CV: Acute severe pulmonary edema Hypertensive emergency Acute non-ST elevation myocardial infarction, likely type II History of coronary artery disease with prior stent 2003 Hyperlipidemia Acute diastolic heart failure exacerbation Serial troponins, EKG, 2D Echo normla LVEF Continue forced diuresis, increase Lasix to 40 mg IV every 12 Continue nitroglycerin drip target systolic blood pressure less than 140. Continues to be too bradycardic for beta-blockers Norvasc 10 mg daily. No LIZ inhibitor at this time due to kidney injury Previously intolerant to statin. ASA 81 daily. Heparin drip If family agreeable hemodialysis to remove fluid GI: Obesity OGT in place. tube feeds FEN/RENAL: Acute on chronic kidney disease. Acuity of this is unknown. Most recent available creatinine was 0.9 06/2009. Today with diuresis creatinine has increased to 3.2 -Nephrology following if family agreeable start hemodialysis today Fernando is in place. Daily BMP Hyperkalemiaresolved Trend on BMP ID: Afebrile. Seems much less likely to be of infectious etiology at this point so we will monitor off antibiotics. No significant secretions with suctioning. monitor. HEME: Monitor CBC ENDO: Diabetes mellitus Monitor bedside glucose every 6 hours and administer medium dose sliding scale as indicated. PROPH: SCDs and heparin drip for DVT prophylaxis. Famotidine IV for stress ulcer prophylaxis. ACCESS: PIV providing adequate access at this time This patient remains critically ill with one or more organ systems which are or may become a threat to life. I have spent in excess of 32 minutes discontinuously in the care and management of this patient. This time is exclusive of procedures, and includes, but is not limited to, evaluation of the patient, review of the medical record, discussions with family, consultants, nursing staff, or respiratory therapy, and documentation in the medical record. Code Status: Full Discussed Condition With: Dr. Chapman
--- NOTE | 2018-04-04 13:20 | P.CONPAL ---
Consult Service: Palliative Care Requesting Physician: Odessa Chapman Reason for Consult: a. To assist with evaluation and management of symptoms including: pain, dyspnea b. To assist medical decision maker(s) with: better understanding of current medical conditions; weighing benefits/burdens of medical treatment options; making medical treatment decisions. Primary Care Provider: Michelle Subramanian MD History of Present Illness History of Present Illness: This is a 77-year-old lady with history CAD, CHF, DM, hypertension, PVD who presented 04/01 to the ER via ambulance for shortness of breath. Prior to calling EMS, family reported pt was groaning intermittently while ambulating but would not say why. FAmily reports she went to bed and then got up, complaining of bad indigestion. SHe went back to bed and they heard sounds of distress and pt was clutching her chest and retching violently without vomiting. Pt was noted by EMS to be cyanotic but was awake and alert. She was put on CPAP and then BIPAP and then became unresponsvie and was intubated by EMS prior to arrival to the ER. EMS noted blood pressure 260/180. Family reported increased lower leg edema in the past few weeks and increased activity intolerance. On presentation labs notable for WBC 13.2, Hgb 10.7, BUN 56, creatinine 2.41, GFR 19, BNP 764. Chest x-ray showed pulmonary edema. 04/02 troponins up to 7.87. Cardiology was consulted for an STEMI and recommends full medical therapy. Feel she will likely need a cardiac cath but after improvement of renal function. Echo showed EF 55-60%, less than 50% respiratory change inferior vena cava dimension. Nephrology consulted for acute on chronic kidney disease and feel that patient would likely need hemodialysis after a cardiac catheterization was done due to the dye toxicity. Patient was started on Aggrastat and heparin. Failing CPAP trials 2/2 agitation and mental status. Kidney function has declined. Family reports pt was advised a long time agoto take insulin but has been noncompliant for years. Function/Cognitive Trajectory: In the past few months pt has been more "forgetful." She was ambulatory but in the last week needed her rollator more. She has not been able to balance a checkbook. Review of Systems ROS pt limited d/t pt being intubated, sedated. completed to best of my ability from chart, family, RN unobtainable due to endotracheal tube, unobtainable due to mental status Constitutional: Denies headache(s) Eyes: Denies blind spots Ears, Nose, Mouth, and Throat: Denies abnormal hearing Cardiovascular: Reports chest pain, Reports leg swelling, Reports shortness of breath, Reports shortness of breath with activity Respiratory: Reports shortness of breath with activity Gastrointestinal: Reports nausea Musculoskeletal: Reports back pain Neurologic: Reports tingling/numbness/burning sensations PMFSH - History History Provided By: Family Member, Medical Record - Medical History Medical History: Medical History (Last Updated 04/03/18 @ 12:55 by Odessa Chapman MD) CAD (coronary artery disease) Diabetes H/O: hysterectomy HLD (hyperlipidemia) HTN (hypertension) Peripheral vascular disease - Surgical History Surgical History: Surgical History (Last Updated 04/03/18 @ 12:54 by Odessa Chapman MD) H/O arthroscopy of right knee H/O carotid endarterectomy H/O heart artery stent History of cholecystectomy - Family History Family History: Family History (Last Updated 04/02/18 @ 04:11 by Aileen Tipton MD) Other Family history unknown - Tobacco History Tobacco Use In Past 30 Days: No Smoking Status: Former smoker Tobacco Type: Cigarettes - Alcohol History How Often Do You Have a Drink Containing Alcohol: Never - Substance Use History Substance History: No History of Abuse - Travel History Recent Travel in the [place] Within the Last 8 Weeks: No Recent Travel Out of the Country Within the Last 8 Weeks: No - Immunization History Tetanus Immunization: Unable to Assess Hx Influenza Vaccine This Season: Unable to Assess Medications and Allergies Active Medications: Active Medications Hydrocodone Bitart/Acetaminophen ([place] 5/325) 1 tab PO Q4H PRN PRN Reason: pain Al Hydroxide/Mg Hydroxide (Milk Of Magnvladimir Liq) 30 ml PO Q12H PRN PRN Reason: Mild Constipation Albuterol (Albuterol Neb (Prn)) 2.5 mg NEB Q2HR NEB PRN PRN Reason: SHORTNESS OF BREATH/WHEEZING Albuterol (Duoneb Neb (Ministerio)) 1 ampul NEB Q6HR NEB MINISTERIO Last Admin: 04/04/18 08:14 Dose: 1 ampul Amlodipine Besylate (Norvasc) 10 mg NG/OG DAILY MINISTERIO Last Admin: 04/04/18 08:52 Dose: 10 mg Aspirin (Aspirin Chew) 81 mg PO DAILY [facility] Last Admin: 04/04/18 08:52 Dose: 81 mg Bisacodyl (Dulcolax Supp) 10 mg RECTAL DAILY PRN PRN Reason: SEVERE CONSITIPATION Chlorhexidine Gluconate (Chlorhexidine 2% Cloth) 3 pack TOPICAL DAILY@0400 [facility] Stop: 04/07/18 03:59 Last Admin: 04/04/18 05:29 Dose: 3 pack Chlorhexidine Gluconate (Chlorhexidine 2% Cloth) 3 pack TOPICAL DAILY@0400 PRN PRN Reason: Extra cloth needed Stop: 04/07/18 03:59 Chlorhexidine Gluconate (Peridex 0.12% Oral Kit) 15 ml OROPHARYNG BID@08, 1999 [facility] Last Admin: 04/04/18 08:55 Dose: 15 ml Dextrose (D50w Vial) 50 ml IV.PUSH UNSCH PRN PRN Reason: PER HYPOGLYCEMIA PROTOCOL Famotidine (Pepcid Pf Inj) 10 mg IV.PUSH Q12HR [facility] Last Admin: 04/04/18 08:52 Dose: 10 mg Fentanyl Citrate (Fentanyl Inj) 50 mcg IV PUSH Q1H PRN PRN Reason: breakthrough pain/sedation Furosemide (Lasix Inj) 40 mg IV.PUSH Q12H [facility] Glucagon (Glucagon Inj) 1 mg OTHER PRN PRN PRN Reason: for Hypoglycemia Protocol Nitroglycerin/Dextrose (Nitroglycerin Drip Premix) 50 mg in 250 mls @ 0 mls/hr IV.CONT TITRATE PRN; Protocol PRN Reason: Per Protocol Last Admin: 04/04/18 05:30 Dose: 40 mcg/min, 12 mls/hr Propofol (Diprivan 1000 Mg/100 Ml Inj) 1,000 mg in 100 mls @ 2.994 mls/hr IV.CONT TITRATE PRN; Protocol PRN Reason: Per Protocol Last Admin: 04/04/18 06:00 Dose: 50 mcg/kg/min, 29.94 mls/hr Heparin Sodium/Dextrose (Heparin/D5w 25,000 U/250 Ml) 25,000 unit in 250 mls @ 0 mls/hr IV.CONT TITRATE PRN; Protocol PRN Reason: Per Protocol Last Titration: 04/04/18 03:30 Dose: 0 units/hr, 0 mls/hr Insulin Aspart (Novolog Insulin Correctional Sugar Inj) 0 unit SQ Q4HR [facility]; Protocol Last Admin: 04/04/18 08:54 Dose: 4 unit Lactulose (Lactulose Liq) 30 ml PO DAILY PRN PRN Reason: SEVERE CONSITIPATION Ondansetron HCl (Zofran Inj) 4 mg IV.PUSH Q6H PRN PRN Reason: NAUSEA OR VOMITING Pravastatin Sodium (Pravachol) 40 mg PO DAILY [facility] Last Admin: 04/04/18 08:52 Dose: 40 mg Senna/Docusate Sodium (Paty-Colace) 1 tab PO BID [facility] Last Admin: 04/04/18 08:52 Dose: 1 tab Sennosides (Senokot) 17.2 mg PO Q12H PRN PRN Reason: Moderate Constipation Sodium Chloride (Ns Flush) 2 ml IV.FLUSH BID [facility] Last Admin: 04/04/18 08:55 Dose: 2 ml Sodium Chloride (Ns Flush) 2 ml IV.FLUSH PRN PRN PRN Reason: FLUSH AFTER USING IV ACCESS Allergies Allergy/AdvReac Type Severity Reaction Status Date / Time atorvastatin Allergy Severe ALL Unverified 03/23/17 22:36 STATINS CAUSE ACHING AND UNABLE TO WALK penicillin G Allergy Intermediate GENERALIZED Unverified 03/23/17 22:36 EDEMA Home Medications Medication Instructions Recorded Confirmed Type Unable to Obtain Home Meds 04/01/18 04/01/18 History Advance Directives Living Will: Yes (standard verbiage, 12/03/2004) Ethical and Legal Issues: patient not capacitated to make medical decisions. In the absence of designated healthcare surrogate, per [place] statutes proxy decision-maker would be her daughter Physical Exam Vital Signs: Vital Signs - 24 hr 04/03/18 14:00 04/03/18 15:00 04/03/18 16:00 Temperature 98.9 F Pulse Rate 83 95 H 82 Respiratory Rate 16 16 Blood Pressure 139/63 Pulse Oximetry 97 04/03/18 16:39 04/03/18 18:00 04/03/18 19:35 Temperature Pulse Rate 96 H Respiratory Rate 16 16 Blood Pressure Pulse Oximetry 97 98 04/03/18 20:00 04/03/18 21:04 04/03/18 22:00 Temperature 99.9 F H Pulse Rate 96 H 98 H 103 H Respiratory Rate 16 16 Blood Pressure 143/63 H Pulse Oximetry 96 04/03/18 22:22 04/04/18 00:00 04/04/18 01:25 Temperature 99 F Pulse Rate 96 H Respiratory Rate 16 16 16 Blood Pressure 111/59 L Pulse Oximetry 99 99 94 L 04/04/18 02:00 04/04/18 04:00 04/04/18 04:20 Temperature 99.2 F Pulse Rate 89 79 73 Respiratory Rate 17 16 Blood Pressure 142/62 H Pulse Oximetry 99 04/04/18 04:38 04/04/18 05:00 04/04/18 05:15 Temperature Pulse Rate 84 81 Respiratory Rate 16 16 16 Blood Pressure 104/52 L 111/56 L Pulse Oximetry 98 98 98 04/04/18 05:30 04/04/18 05:45 04/04/18 06:00 Temperature Pulse Rate 80 79 79 Respiratory Rate 16 16 16 Blood Pressure 124/53 L 114/52 L 112/56 L Pulse Oximetry 98 98 98 04/04/18 06:15 04/04/18 06:30 04/04/18 06:45 Temperature Pulse Rate 77 79 79 Respiratory Rate 16 16 16 Blood Pressure 112/56 L 115/57 L 119/58 L Pulse Oximetry 99 99 99 04/04/18 07:00 04/04/18 07:15 04/04/18 07:30 Temperature Pulse Rate 78 76 86 Respiratory Rate 16 16 18 Blood Pressure 110/55 L 108/55 L 176/81 H Pulse Oximetry 99 99 100 04/04/18 07:45 04/04/18 08:00 04/04/18 08:15 Temperature 98.5 F Pulse Rate 80 81 80 Respiratory Rate 16 16 17 Blood Pressure 186/81 H 188/86 H 182/78 H Pulse Oximetry 99 99 98 04/04/18 08:27 04/04/18 08:30 04/04/18 08:45 Temperature Pulse Rate 81 86 Respiratory Rate 12 17 18 Blood Pressure 195/83 H 182/77 H Pulse Oximetry 100 98 97 04/04/18 08:56 04/04/18 09:00 04/04/18 09:09 Temperature Pulse Rate 86 89 90 Respiratory Rate 17 18 18 Blood Pressure 190/79 H 196/77 H 185/77 H Pulse Oximetry 97 97 96 04/04/18 09:15 04/04/18 09:30 04/04/18 09:45 Temperature Pulse Rate 94 H 94 H 108 H Respiratory Rate 18 17 24 Blood Pressure 178/74 H 177/76 H 172/73 H Pulse Oximetry 96 95 95 04/04/18 09:57 04/04/18 10:00 04/04/18 10:15 Temperature Pulse Rate 110 H 101 H 107 H Respiratory Rate 24 25 H 25 H Blood Pressure 181/79 H 186/78 H 180/79 H Pulse Oximetry 94 L 94 L 93 L 04/04/18 12:13 Temperature Pulse Rate Respiratory Rate Blood Pressure Pulse Oximetry 92 L I&O: Intake & Output 04/02/18 04/03/18 04/04/18 04/05/18 06:59 06:59 06:59 06:59 Intake Total 560 / 560 1110 / 1110 1674 / 1674 Output Total 1900 / 1900 1575 / 1575 1050 / 1050 Balance -1340 / -1340 -465 / -465 624 / 624 Weight 99.79 kg Physical Exam: CONSTITUTIONAL/GENERAL: This is an adequately nourished patient, sedated on vent TUBES/LINES/DRAINS: OETT, OGT, lerner SKIN: pale. No jaundice, rashes, or lesions. No wounds seen anteriorly. HEAD: Atraumatic. Normocephalic. EYES: PERRL. No scleral icterus. No injection or drainage. Fundi not examined. ENT: Hearing grossly normal. Nose without bleeding or purulent drainage. Throat exam limited by ET tube NECK: Trachea midline. scar left neck CARDIOVASCULAR: irr HR, tachycardic without murmurs, gallops, or rubs. No JVD. Peripheral pulses symmetric. RESPIRATORY/CHEST: Symmetric, unlabored respirations. coarse. Breath sounds equal bilaterally. GASTROINTESTINAL: Abdomen soft, nondistended. No hepato-splenomegaly, or palpable masses. GENITOURINARY: Without palpable bladder distension. Lerner catheter in place. MUSCULOSKELETAL: Extremities without clubbing, cyanosis. + mild BLE edema No mottling or clubbing. NEUROLOGICAL: sedated on vent PSYCHIATRIC: unable to assess, sedated on vent Diagnostic Tests Laboratory: Laboratory Results - last 72 hr 04/01/18 04/01/18 04/01/18 21:15 21:15 21:20 WBC 13.2 H RBC 3.89 L Hgb 10.7 L Hct 33.9 L MCV 87.2 MCH 27.6 MCHC 31.6 L RDW 15.6 Plt Count 208 MPV 11.3 H Prelim Diff (Auto) Slide review pending Neut % (Auto) 68.4 Lymph % (Auto) 19.0 Mcnairy % (Auto) 5.5 Eos % (Auto) 6.4 H Baso % (Auto) 0.7 Neut # (Auto) 9.1 H Lymph # (Auto) 2.5 Mcnairy # (Auto) 0.7 Eos # (Auto) 0.8 H Baso # (Auto) 0.1 WBC Differential . Diff Scan Auto diff confirmed Differential Comment . Platelet Estimate Normal Platelet Morphology Normal RBC Morphology Normal PT INR APTT Fibrinogen Puncture Site Patient Temperature O2 Saturation ABG pH ABG pCO2 ABG pO2 ABG HCO3 ABG O2 Content ABG Base Excess ABG Methemoglobin Durga Test Hemoglobin Carboxyhemoglobin O2 Delivery Device Vent Setting Inspired O2 Critical Value Sodium Potassium Chloride Carbon Dioxide Anion Gap BUN Creatinine Estimated GFR POC Glucose Random Glucose Calcium Phosphorus Magnesium Total Bilirubin AST ALT Alkaline Phosphatase Troponin I B-Natriuretic Peptide Total Protein Albumin TSH Free T4 Urine Color Straw Urine Clarity Clear Urine pH 6.0 Ur Specific [place] 1.008 Urine Protein 500 or greater Urine Glucose (UA) 150 H Urine Ketones Negative Urine Occult Blood Negative Urine Nitrate Negative Urine Bilirubin Negative Urine Urobilinogen Less than 2 Ur Leukocyte Esterase Negative Urine WBC Less than 1 Ur Squamous Epith Cells <1 Amorphous Sediment Rare H Micro UA Comment Cath-culture not ind Ur Microscopic Review Not Reportable Urine Culture Comments Cath-cult not ind Nasal Screen MRSA (PCR) Urine Opiates Screen Neg Ur Barbiturates Screen Neg Ur Amphetamines Screen Neg U Benzodiazepines Scrn Neg Urine Cocaine Screen Neg U Cannabinoids Screen Neg 04/01/18 04/01/18 04/01/18 21:20 21:20 21:20 WBC RBC Hgb Hct MCV MCH MCHC RDW Plt Count MPV Prelim Diff (Auto) Neut % (Auto) Lymph % (Auto) Mcnairy % (Auto) Eos % (Auto) Baso % (Auto) Neut # (Auto) Lymph # (Auto) Mcnairy # (Auto) Eos # (Auto) Baso # (Auto) WBC Differential Diff Scan Differential Comment Platelet Estimate Platelet Morphology RBC Morphology PT 9.7 L INR 1.0 APTT 28.3 Fibrinogen Puncture Site Patient Temperature O2 Saturation ABG pH ABG pCO2 ABG pO2 ABG HCO3 ABG O2 Content ABG Base Excess ABG Methemoglobin Durga Test Hemoglobin Carboxyhemoglobin O2 Delivery Device Vent Setting Inspired O2 Critical Value Sodium 139 Potassium 5.4 H Chloride 106 Carbon Dioxide 23.7 Anion Gap 9 BUN 56 H Creatinine 2.41 H Estimated GFR 19 L POC Glucose Random Glucose 320 H Calcium 8.5 Phosphorus Magnesium 2.1 Total Bilirubin 0.2 AST 17 ALT 21 Alkaline Phosphatase 85 Troponin I 0.03 B-Natriuretic Peptide 764 H Total Protein 7.2 Albumin 3.1 L TSH Free T4 Urine Color Urine Clarity Urine pH Ur Specific [place] Urine Protein Urine Glucose (UA) Urine Ketones Urine Occult Blood Urine Nitrate Urine Bilirubin Urine Urobilinogen Ur Leukocyte Esterase Urine WBC Ur Squamous Epith Cells Amorphous Sediment Micro UA Comment Ur Microscopic Review Urine Culture Comments Nasal Screen MRSA (PCR) Urine Opiates Screen Ur Barbiturates Screen Ur Amphetamines Screen U Benzodiazepines Scrn Urine Cocaine Screen U Cannabinoids Screen 04/01/18 04/02/18 04/02/18 21:50 01:04 01:29 WBC RBC Hgb Hct MCV MCH MCHC RDW Plt Count MPV Prelim Diff (Auto) Neut % (Auto) Lymph % (Auto) Mcnairy % (Auto) Eos % (Auto) Baso % (Auto) Neut # (Auto) Lymph # (Auto) Mcnairy # (Auto) Eos # (Auto) Baso # (Auto) WBC Differential Diff Scan Differential Comment Platelet Estimate Platelet Morphology RBC Morphology PT INR APTT Fibrinogen Puncture Site Right radial Patient Temperature 98.6 O2 Saturation 98 ABG pH 7.33 L ABG pCO2 47 H ABG pO2 156 H ABG HCO3 24 ABG O2 Content 13.8 ABG Base Excess -1.2 ABG Methemoglobin 0.6 Durga Test Present Hemoglobin 9.8 L Carboxyhemoglobin 1.2 O2 Delivery Device Ventilator Vent Setting Vac/16/550/+5 Inspired O2 60 Critical Value No Sodium Potassium 5.6 H Chloride Carbon Dioxide Anion Gap BUN Creatinine Estimated GFR POC Glucose Random Glucose Calcium Phosphorus Magnesium Total Bilirubin AST ALT Alkaline Phosphatase Troponin I B-Natriuretic Peptide Total Protein Albumin TSH Free T4 Urine Color Urine Clarity Urine pH Ur Specific [place] Urine Protein Urine Glucose (UA) Urine Ketones Urine Occult Blood Urine Nitrate Urine Bilirubin Urine Urobilinogen Ur Leukocyte Esterase Urine WBC Ur Squamous Epith Cells Amorphous Sediment Micro UA Comment Ur Microscopic Review Urine Culture Comments Nasal Screen MRSA (PCR) Not detected Urine Opiates Screen Ur Barbiturates Screen Ur Amphetamines Screen U Benzodiazepines Scrn Urine Cocaine Screen U Cannabinoids Screen 04/02/18 04/02/18 04/02/18 05:32 05:32 07:30 WBC 9.4 RBC 3.25 L Hgb 9.0 L Hct 28.0 L MCV 86.3 MCH 27.7 MCHC 32.1 RDW 15.5 Plt Count 175 MPV 11.1 H Prelim Diff (Auto) Neut % (Auto) 73.0 H Lymph % (Auto) 15.8 Mcnairy % (Auto) 8.0 Eos % (Auto) 2.4 Baso % (Auto) 0.8 Neut # (Auto) 6.9 Lymph # (Auto) 1.5 Mcnairy # (Auto) 0.8 Eos # (Auto) 0.2 Baso # (Auto) 0.1 WBC Differential . Diff Scan Differential Comment Auto diff final Platelet Estimate Platelet Morphology RBC Morphology PT 10.4 INR 1.0 APTT 23.9 L Fibrinogen Puncture Site Patient Temperature O2 Saturation ABG pH ABG pCO2 ABG pO2 ABG HCO3 ABG O2 Content ABG Base Excess ABG Methemoglobin Durga Test Hemoglobin Carboxyhemoglobin O2 Delivery Device Vent Setting Inspired O2 Critical Value Sodium 141 Potassium 5.3 H Chloride 106 Carbon Dioxide 26.0 Anion Gap 9 BUN 54 H Creatinine 2.40 H Estimated GFR 19 L POC Glucose Random Glucose 262 H Calcium 9.8 D Phosphorus Magnesium Total Bilirubin AST ALT Alkaline Phosphatase Troponin I 7.87 H* D B-Natriuretic Peptide Total Protein Albumin TSH Free T4 Urine Color Urine Clarity Urine pH Ur Specific [place] Urine Protein Urine Glucose (UA) Urine Ketones Urine Occult Blood Urine Nitrate Urine Bilirubin Urine Urobilinogen Ur Leukocyte Esterase Urine WBC Ur Squamous Epith Cells Amorphous Sediment Micro UA Comment Ur Microscopic Review Urine Culture Comments Nasal Screen MRSA (PCR) Urine Opiates Screen Ur Barbiturates Screen Ur Amphetamines Screen U Benzodiazepines Scrn Urine Cocaine Screen U Cannabinoids Screen 04/02/18 04/02/18 04/02/18 09:00 10:25 11:56 WBC 9.1 RBC 3.19 L Hgb 8.8 L Hct 27.3 L MCV 85.7 MCH 27.7 MCHC 32.3 RDW 15.6 Plt Count 177 MPV 12.0 H Prelim Diff (Auto) Neut % (Auto) Lymph % (Auto) Mcnairy % (Auto) Eos % (Auto) Baso % (Auto) Neut # (Auto) Lymph # (Auto) Mcnairy # (Auto) Eos # (Auto) Baso # (Auto) WBC Differential Diff Scan Differential Comment Platelet Estimate Platelet Morphology RBC Morphology PT INR APTT Fibrinogen Puncture Site Patient Temperature O2 Saturation ABG pH ABG pCO2 ABG pO2 ABG HCO3 ABG O2 Content ABG Base Excess ABG Methemoglobin Durga Test Hemoglobin Carboxyhemoglobin O2 Delivery Device Vent Setting Inspired O2 Critical Value Sodium Potassium Chloride Carbon Dioxide Anion Gap BUN Creatinine Estimated GFR POC Glucose 286 H 236 H Random Glucose Calcium Phosphorus Magnesium Total Bilirubin AST ALT Alkaline Phosphatase Troponin I B-Natriuretic Peptide Total Protein Albumin TSH Free T4 Urine Color Urine Clarity Urine pH Ur Specific [place] Urine Protein Urine Glucose (UA) Urine Ketones Urine Occult Blood Urine Nitrate Urine Bilirubin Urine Urobilinogen Ur Leukocyte Esterase Urine WBC Ur Squamous Epith Cells Amorphous Sediment Micro UA Comment Ur Microscopic Review Urine Culture Comments Nasal Screen MRSA (PCR) Urine Opiates Screen Ur Barbiturates Screen Ur Amphetamines Screen U Benzodiazepines Scrn Urine Cocaine Screen U Cannabinoids Screen 04/02/18 04/02/18 04/02/18 12:13 12:20 12:20 WBC RBC Hgb Hct MCV MCH MCHC RDW Plt Count MPV Prelim Diff (Auto) Neut % (Auto) Lymph % (Auto) Mcn[place] % (Auto) Eos % (Auto) Baso % (Auto) Neut # (Auto) Lymph # (Auto) Mcnairy # (Auto) Eos # (Auto) Baso # (Auto) WBC Differential Diff Scan Differential Comment Platelet Estimate Platelet Morphology RBC Morphology PT INR APTT Fibrinogen Puncture Site Patient Temperature O2 Saturation ABG pH ABG pCO2 ABG pO2 ABG HCO3 ABG O2 Content ABG Base Excess ABG Methemoglobin Durga Test Hemoglobin Carboxyhemoglobin O2 Delivery Device Vent Setting Inspired O2 Critical Value Sodium Potassium 4.3 D Chloride Carbon Dioxide Anion Gap BUN Creatinine Estimated GFR POC Glucose Random Glucose Calcium Phosphorus Magnesium Total Bilirubin AST ALT Alkaline Phosphatase Troponin I 7.73 H* D Cancelled B-Natriuretic Peptide Total Protein Albumin TSH Free T4 Urine Color Urine Clarity Urine pH Ur Specific [place] Urine Protein Urine Glucose (UA) Urine Ketones Urine Occult Blood Urine Nitrate Urine Bilirubin Urine Urobilinogen Ur Leukocyte Esterase Urine WBC Ur Squamous Epith Cells Amorphous Sediment Micro UA Comment Ur Microscopic Review Urine Culture Comments Nasal Screen MRSA (PCR) Urine Opiates Screen Ur Barbiturates Screen Ur Amphetamines Screen U Benzodiazepines Scrn Urine Cocaine Screen U Cannabinoids Screen 04/02/18 04/02/18 04/02/18 15:40 15:40 16:08 WBC 9.1 RBC 3.16 L Hgb 8.7 L Hct 27.3 L MCV 86.4 MCH 27.5 MCHC 31.9 L RDW 15.4 Plt Count 190 MPV 11.2 H Prelim Diff (Auto) Neut % (Auto) 72.0 H Lymph % (Auto) 16.4 Mcnairy % (Auto) 6.8 Eos % (Auto) 3.9 Baso % (Auto) 0.9 Neut # (Auto) 6.6 Lymph # (Auto) 1.5 Mcnairy # (Auto) 0.6 Eos # (Auto) 0.4 Baso # (Auto) 0.1 WBC Differential . Diff Scan Differential Comment Auto diff final Platelet Estimate Platelet Morphology RBC Morphology PT INR APTT 79.3 H D Fibrinogen Puncture Site Patient Temperature O2 Saturation ABG pH ABG pCO2 ABG pO2 ABG HCO3 ABG O2 Content ABG Base Excess ABG Methemoglobin Durga Test Hemoglobin Carboxyhemoglobin O2 Delivery Device Vent Setting Inspired O2 Critical Value Sodium Potassium Chloride Carbon Dioxide Anion Gap BUN Creatinine Estimated GFR POC Glucose 210 H Random Glucose Calcium Phosphorus Magnesium Total Bilirubin AST ALT Alkaline Phosphatase Troponin I B-Natriuretic Peptide Total Protein Albumin TSH Free T4 Urine Color Urine Clarity Urine pH Ur Specific [place] Urine Protein Urine Glucose (UA) Urine Ketones Urine Occult Blood Urine Nitrate Urine Bilirubin Urine Urobilinogen Ur Leukocyte Esterase Urine WBC Ur Squamous Epith Cells Amorphous Sediment Micro UA Comment Ur Microscopic Review Urine Culture Comments Nasal Screen MRSA (PCR) Urine Opiates Screen Ur Barbiturates Screen Ur Amphetamines Screen U Benzodiazepines Scrn Urine Cocaine Screen U Cannabinoids Screen 04/02/18 04/02/18 04/02/18 19:28 21:01 23:31 WBC RBC Hgb Hct MCV MCH MCHC RDW Plt Count MPV Prelim Diff (Auto) Neut % (Auto) Lymph % (Auto) [place] % (Auto) Eos % (Auto) Baso % (Auto) Neut # (Auto) Lymph # (Auto) Mcn[place] # (Auto) Eos # (Auto) Baso # (Auto) WBC Differential Diff Scan Differential Comment Platelet Estimate Platelet Morphology RBC Morphology PT INR APTT 59.1 H D Fibrinogen Puncture Site Patient Temperature O2 Saturation ABG pH ABG pCO2 ABG pO2 ABG HCO3 ABG O2 Content ABG Base Excess ABG Methemoglobin Durga Test Hemoglobin Carboxyhemoglobin O2 Delivery Device Vent Setting Inspired O2 Critical Value Sodium Potassium Chloride Carbon Dioxide Anion Gap BUN Creatinine Estimated GFR POC Glucose 206 H 271 H Random Glucose Calcium Phosphorus Magnesium Total Bilirubin AST ALT Alkaline Phosphatase Troponin I B-Natriuretic Peptide Total Protein Albumin TSH Free T4 Urine Color Urine Clarity Urine pH Ur Specific [place] Urine Protein Urine Glucose (UA) Urine Ketones Urine Occult Blood Urine Nitrate Urine Bilirubin Urine Urobilinogen Ur Leukocyte Esterase Urine WBC Ur Squamous Epith Cells Amorphous Sediment Micro UA Comment Ur Microscopic Review Urine Culture Comments Nasal Screen MRSA (PCR) Urine Opiates Screen Ur Barbiturates Screen Ur Amphetamines Screen U Benzodiazepines Scrn Urine Cocaine Screen U Cannabinoids Screen 04/03/18 04/03/18 04/03/18 03:15 03:25 03:25 WBC 13.0 H RBC 3.20 L Hgb 8.9 L Hct 27.1 L MCV 84.8 MCH 27.7 MCHC 32.6 RDW 15.7 Plt Count 199 MPV 11.6 H Prelim Diff (Auto) Neut % (Auto) Lymph % (Auto) Mcnairy % (Auto) Eos % (Auto) Baso % (Auto) Neut # (Auto) Lymph # (Auto) Mcnairy # (Auto) Eos # (Auto) Baso # (Auto) WBC Differential Diff Scan Differential Comment Platelet Estimate Platelet Morphology RBC Morphology PT INR APTT Fibrinogen Puncture Site Patient Temperature O2 Saturation ABG pH ABG pCO2 ABG pO2 ABG HCO3 ABG O2 Content ABG Base Excess ABG Methemoglobin Durga Test Hemoglobin Carboxyhemoglobin O2 Delivery Device Vent Setting Inspired O2 Critical Value Sodium 140 Potassium 4.6 Chloride 101 Carbon Dioxide 27.1 Anion Gap 12 BUN 56 H Creatinine 2.82 H Estimated GFR 16 L POC Glucose 247 H Random Glucose 240 H Calcium 8.6 D Phosphorus 4.8 Magnesium Total Bilirubin AST ALT Alkaline Phosphatase Troponin I B-Natriuretic Peptide Total Protein Albumin TSH 0.673 Free T4 1.25 Urine Color Urine Clarity Urine pH Ur Specific [place] Urine Protein Urine Glucose (UA) Urine Ketones Urine Occult Blood Urine Nitrate Urine Bilirubin Urine Urobilinogen Ur Leukocyte Esterase Urine WBC Ur Squamous Epith Cells Amorphous Sediment Micro UA Comment Ur Microscopic Review Urine Culture Comments Nasal Screen MRSA (PCR) Urine Opiates Screen Ur Barbiturates Screen Ur Amphetamines Screen U Benzodiazepines Scrn Urine Cocaine Screen U Cannabinoids Screen 04/03/18 04/03/18 04/03/18 03:25 07:39 12:37 WBC RBC Hgb Hct MCV MCH MCHC RDW Plt Count MPV Prelim Diff (Auto) Neut % (Auto) Lymph % (Auto) Mcnairy % (Auto) Eos % (Auto) Baso % (Auto) Neut # (Auto) Lymph # (Auto) Mcn[place] # (Auto) Eos # (Auto) Baso # (Auto) WBC Differential Diff Scan Differential Comment Platelet Estimate Platelet Morphology RBC Morphology PT INR APTT 60.7 H Fibrinogen Puncture Site Patient Temperature O2 Saturation ABG pH ABG pCO2 ABG pO2 ABG HCO3 ABG O2 Content ABG Base Excess ABG Methemoglobin Durga Test Hemoglobin Carboxyhemoglobin O2 Delivery Device Vent Setting Inspired O2 Critical Value Sodium Potassium Chloride Carbon Dioxide Anion Gap BUN Creatinine Estimated GFR POC Glucose 195 H 217 H Random Glucose Calcium Phosphorus Magnesium Total Bilirubin AST ALT Alkaline Phosphatase Troponin I B-Natriuretic Peptide Total Protein Albumin TSH Free T4 Urine Color Urine Clarity Urine pH Ur Specific [place] Urine Protein Urine Glucose (UA) Urine Ketones Urine Occult Blood Urine Nitrate Urine Bilirubin Urine Urobilinogen Ur Leukocyte Esterase Urine WBC Ur Squamous Epith Cells Amorphous Sediment Micro UA Comment Ur Microscopic Review Urine Culture Comments Nasal Screen MRSA (PCR) Urine Opiates Screen Ur Barbiturates Screen Ur Amphetamines Screen U Benzodiazepines Scrn Urine Cocaine Screen U Cannabinoids Screen 04/03/18 04/03/18 04/03/18 15:39 16:15 21:16 WBC RBC Hgb Hct MCV MCH MCHC RDW Plt Count MPV Prelim Diff (Auto) Neut % (Auto) Lymph % (Auto) Mcnairy % (Auto) Eos % (Auto) Baso % (Auto) Neut # (Auto) Lymph # (Auto) Mcnairy # (Auto) Eos # (Auto) Baso # (Auto) WBC Differential Diff Scan Differential Comment Platelet Estimate Platelet Morphology RBC Morphology PT INR APTT Fibrinogen Puncture Site Patient Temperature O2 Saturation ABG pH ABG pCO2 ABG pO2 ABG HCO3 ABG O2 Content ABG Base Excess ABG Methemoglobin Durga Test Hemoglobin Carboxyhemoglobin O2 Delivery Device Vent Setting Inspired O2 Critical Value Sodium Potassium Chloride Carbon Dioxide Anion Gap BUN Creatinine Estimated GFR POC Glucose 220 H 289 H Random Glucose Calcium Phosphorus Magnesium Total Bilirubin AST ALT Alkaline Phosphatase Troponin I 2.44 H* D B-Natriuretic Peptide Total Protein Albumin TSH Free T4 Urine Color Urine Clarity Urine pH Ur Specific [place] Urine Protein Urine Glucose (UA) Urine Ketones Urine Occult Blood Urine Nitrate Urine Bilirubin Urine Urobilinogen Ur Leukocyte Esterase Urine WBC Ur Squamous Epith Cells Amorphous Sediment Micro UA Comment Ur Microscopic Review Urine Culture Comments Nasal Screen MRSA (PCR) Urine Opiates Screen Ur Barbiturates Screen Ur Amphetamines Screen U Benzodiazepines Scrn Urine Cocaine Screen U Cannabinoids Screen 04/03/18 04/04/18 04/04/18 23:38 03:31 03:31 WBC 11.1 H RBC 3.30 L Hgb 8.9 L Hct 28.1 L MCV 85.1 MCH 27.1 MCHC 31.8 L RDW 15.6 Plt Count 214 MPV 11.2 H Prelim Diff (Auto) Neut % (Auto) 82.2 H Lymph % (Auto) 8.7 L Mcnairy % (Auto) 6.7 Eos % (Auto) 1.7 Baso % (Auto) 0.7 Neut # (Auto) 9.1 H Lymph # (Auto) 1.0 Mcnairy # (Auto) 0.7 Eos # (Auto) 0.2 Baso # (Auto) 0.1 WBC Differential . Diff Scan Differential Comment Auto diff final Platelet Estimate Platelet Morphology RBC Morphology PT INR APTT 49.3 H Fibrinogen Puncture Site Patient Temperature O2 Saturation ABG pH ABG pCO2 ABG pO2 ABG HCO3 ABG O2 Content ABG Base Excess ABG Methemoglobin Durga Test Hemoglobin Carboxyhemoglobin O2 Delivery Device Vent Setting Inspired O2 Critical Value Sodium Potassium Chloride Carbon Dioxide Anion Gap BUN Creatinine Estimated GFR POC Glucose 315 H Random Glucose Calcium Phosphorus Magnesium Total Bilirubin AST ALT Alkaline Phosphatase Troponin I B-Natriuretic Peptide Total Protein Albumin TSH Free T4 Urine Color Urine Clarity Urine pH Ur Specific [place] Urine Protein Urine Glucose (UA) Urine Ketones Urine Occult Blood Urine Nitrate Urine Bilirubin Urine Urobilinogen Ur Leukocyte Esterase Urine WBC Ur Squamous Epith Cells Amorphous Sediment Micro UA Comment Ur Microscopic Review Urine Culture Comments Nasal Screen MRSA (PCR) Urine Opiates Screen Ur Barbiturates Screen Ur Amphetamines Screen U Benzodiazepines Scrn Urine Cocaine Screen U Cannabinoids Screen 04/04/18 04/04/18 04/04/18 03:31 03:31 03:36 WBC RBC Hgb Hct MCV MCH MCHC RDW Plt Count MPV Prelim Diff (Auto) Neut % (Auto) Lymph % (Auto) Mcn[place] % (Auto) Eos % (Auto) Baso % (Auto) Neut # (Auto) Lymph # (Auto) [place] # (Auto) Eos # (Auto) Baso # (Auto) WBC Differential Diff Scan Differential Comment Platelet Estimate Platelet Morphology RBC Morphology PT 10.6 INR 1.0 APTT Fibrinogen 657 H Puncture Site Patient Temperature O2 Saturation ABG pH ABG pCO2 ABG pO2 ABG HCO3 ABG O2 Content ABG Base Excess ABG Methemoglobin Durga Test Hemoglobin Carboxyhemoglobin O2 Delivery Device Vent Setting Inspired O2 Critical Value Sodium 138 Potassium 4.2 Chloride 99 Carbon Dioxide 25.2 Anion Gap 14 BUN 63 H Creatinine 3.21 H Estimated GFR 14 L POC Glucose 291 H Random Glucose 252 H Calcium 8.0 L Phosphorus Magnesium Total Bilirubin AST ALT Alkaline Phosphatase Troponin I B-Natriuretic Peptide Total Protein Albumin TSH Free T4 Urine Color Urine Clarity Urine pH Ur Specific [place] Urine Protein Urine Glucose (UA) Urine Ketones Urine Occult Blood Urine Nitrate Urine Bilirubin Urine Urobilinogen Ur Leukocyte Esterase Urine WBC Ur Squamous Epith Cells Amorphous Sediment Micro UA Comment Ur Microscopic Review Urine Culture Comments Nasal Screen MRSA (PCR) Urine Opiates Screen Ur Barbiturates Screen Ur Amphetamines Screen U Benzodiazepines Scrn Urine Cocaine Screen U Cannabinoids Screen 04/04/18 04/04/18 04/04/18 08:51 11:37 11:40 WBC RBC Hgb Hct MCV MCH MCHC RDW Plt Count MPV Prelim Diff (Auto) Neut % (Auto) Lymph % (Auto) [place] % (Auto) Eos % (Auto) Baso % (Auto) Neut # (Auto) Lymph # (Auto) [place] # (Auto) Eos # (Auto) Baso # (Auto) WBC Differential Diff Scan Differential Comment Platelet Estimate Platelet Morphology RBC Morphology PT INR APTT Fibrinogen Puncture Site Right radial Patient Temperature 98.6 O2 Saturation 88 L* ABG pH 7.46 H ABG pCO2 35 L ABG pO2 62 ABG HCO3 25 ABG O2 Content 18.6 ABG Base Excess 1.4 ABG Methemoglobin 1.7 Durga Test Present Hemoglobin 15.0 Carboxyhemoglobin 0.8 O2 Delivery Device Ventilator Vent Setting Cpap5/ps 10 Inspired O2 35 Critical Value Yes Sodium Potassium Chloride Carbon Dioxide Anion Gap BUN Creatinine Estimated GFR POC Glucose 214 H 237 H Random Glucose Calcium Phosphorus Magnesium Total Bilirubin AST ALT Alkaline Phosphatase Troponin I B-Natriuretic Peptide Total Protein Albumin TSH Free T4 Urine Color Urine Clarity Urine pH Ur Specific [place] Urine Protein Urine Glucose (UA) Urine Ketones Urine Occult Blood Urine Nitrate Urine Bilirubin Urine Urobilinogen Ur Leukocyte Esterase Urine WBC Ur Squamous Epith Cells Amorphous Sediment Micro UA Comment Ur Microscopic Review Urine Culture Comments Nasal Screen MRSA (PCR) Urine Opiates Screen Ur Barbiturates Screen Ur Amphetamines Screen U Benzodiazepines Scrn Urine Cocaine Screen U Cannabinoids Screen Result Diagrams: 04/05/18 10:35 04/05/18 10:35 Microbiology: Microbiology 04/03/18 12:30 Gram Stain - Final Sputum - Endotracheal Sputum Culture - Preliminary Heavy growth normal respiratory vinny at 24 hours 04/01/18 21:20 Aerobic Blood Culture - Preliminary Blood - Peripheral No growth in 3 days Anaerobic Blood Culture - Preliminary No growth in 3 days 04/01/18 21:15 Aerobic Blood Culture - Preliminary Blood - Peripheral No growth in 3 days Anaerobic Blood Culture - Preliminary No growth in 3 days Imaging: ITS Impressions Chest X-Ray 04/04/18 00:00 CONCLUSION: Better aeration. Moderate bibasilar parenchymal changes persist Patient/Family Conference Present at Family Conference: 2 of pt's 3 children Family Conference Time: 40 Family Conference Location: Bedside Issues Discussed: * Palliative care role, purpose, approach * Additional medical, psychosocial, and spiritual history * Patients general health, functional status, and cognitive changes in the months leading up to the current hospitalization * family understanding of the current medical problems * family understanding of prognosis * Patients goals of care as best understood from advance directives and conversations * Current medical treatment options and benefits/burdens of those options * Likely scenarios comparing ongoing aggressive care with a transition to comfort measures only * introduced hospice * decision maker * code status - alt code intubation only * Questions answered to the best of my ability * Palliative care contact information provided Majority of pt's children present. Goals pending. Family acknowledges pt's living will and wishes. They would like for her to be extubated and tell them her wishes regarding dialysis. "If she can't wake up then we have no choice but to let her go." They would consider dialysis if "it would help her wake up. " Assessment and Plan - Disease Oriented Problem List (1) Chronic kidney disease, stage 4, severely decreased GFR (2) Congestive heart failure (3) Respiratory failure (4) Hypertension (5) Diabetes (6) NSTEMI (non-ST elevated myocardial infarction) - Symptom Scale (1) Dyspnea 0-10 Scale: Unable to quantify (2) Pain 0-10 Scale: Unable to quantify Pertinent Non-Medical Issues: Psychosocial: Pt originally from [place], then moved to [place]. Has divided her time between [place] and [place] over the last 10 years. Recently living with Daughter who is local. 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 . Has 3 children. Spiritual: Zoroastrianism. Familly requests pastoral care Legal: Pt not capacitated to make decisions. In absence of designated HCS medical decision makin falls to the majority of pt's 3 children. Family appears to be working together. Ethical issues impacting care: Important Contacts: Meliza Murrell [phone] cell [phone] brother in [place] Jorje [phone] Prognosis: 77 yo female, with CKD 4, type 2 DM noncompliant with insulin, admitted 04/01 with chest pain, SOB. Found to have NSTEMI. Cardiology not wanting to do cath procedure, recommending medical mgmt including anticoagulation but this is held currently 2/2 hypopharyngeal bleeding from intubaiton injury. nephrology recommending dialysis. Pt with worsening kidney function. Failed initial spontaneous breathing trials 2/2 agitation, mental status. Prognosis w/o dialysis extremely poor. Even with dialysis pt not likely to return to baseline. Code Status: Alternative Code (intubation only) Plan: - LEGAL DECISON MAKER -patient not capacitated to make medical decisions. In the absence of designated healthcare surrogate, per [place] statutes proxy decision-making falls to majority of 3 children. Family appears to be working together. - CODE STATUS- alt code intubation only - GOALS - Majority of pt's children present. Goals pending. Family acknowledges pt's living will and wishes. They would like for her to be extubated and tell them her wishes regarding dialysis. "If she can't wake up then we have no choice but to let her go." They would consider dialysis if "it would help her wake up." - SYMPTOMS - * pain - multifactorial, acute and chronic. at time of admission had chest pain. pt had sciatica, had just had injection. pt also had neuropathy per family. on my eval she appears comfortable. fentanyl 50mcg IV PRN, per CCM * dyspnea - had SOB prior to arrival. increasing activity intolerance over last few weeks. intubated prior to arrival. Found to have NSTEMI. cardiology recommending medical mgmt, no cath. failed breathing trials today . per CCM will try again tomorrow. propofol gtt. has ministerio, JANES rain - pastoral care consult pending - d/w RN - Palliative care will continue to follow during hospital course as condition evolves, to assist patient/decision-maker with understanding of medical conditions, weighing benefits/burdens of treatment options, for clarification of goals of treatment. Additionally will assist with any symptoms of palliative concern Time Spent Total Floor Time (mins): 60 Face to Face Time (mins): 35 >50% Time in Counseling or Coordination of Care: Yes Appreciation Thank you for the opportunity to participate in the care of Zac Jonas.
--- NOTE | 2018-04-04 13:51 | XR ---
EXAM DATE: 04/04/2018 1:48 PM EDT AGE/SEX: 77 years / Female INDICATIONS: Respiratory disease, short of breath, respiratory failure CLINICAL DATA: This is the patient's subsequent encounter. Patient reports that signs and symptoms h ave been present for 3 days and indicates a pain score of Nonresponsive. MEDICAL/SURGICAL HISTORY: Compression fracture. hyperkalemia Non-responsive. COMPARISON: [facility], CHEST 1V SINGLE AP, 04/01/2018. . FINDINGS: ET tube and nasogastric tube are in good position. Lungs are better aerated. Mild bibasilar parenchym al changes. No pneumothorax. CONCLUSION: Better aeration. Moderate bibasilar parenchymal changes persist Electronically signed by: Adonis Posey MD 04/04/2018 1:50 PM EDT
--- NOTE | 2018-04-04 15:55 | P.PNCA ---
Subjective Interval history: Patient is currently intubated and sedated. Appears to be in no acute distress. Vitals stable on monitor. Physical Exam Vital signs: Vital Signs 04/03/18 16:00 04/03/18 16:39 04/03/18 18:00 Temperature 98.9 F Pulse Rate 82 96 H Respiratory Rate 16 16 Blood Pressure 139/63 Pulse Oximetry 97 97 04/03/18 19:35 04/03/18 20:00 04/03/18 21:04 Temperature 99.9 F H Pulse Rate 96 H 98 H Respiratory Rate 16 16 16 Blood Pressure 143/63 H Pulse Oximetry 98 96 04/03/18 22:00 04/03/18 22:22 04/04/18 00:00 Temperature 99 F Pulse Rate 103 H 96 H Respiratory Rate 16 16 Blood Pressure 111/59 L Pulse Oximetry 99 99 04/04/18 01:25 04/04/18 02:00 04/04/18 04:00 Temperature 99.2 F Pulse Rate 89 79 Respiratory Rate 16 17 Blood Pressure 142/62 H Pulse Oximetry 94 L 99 04/04/18 04:20 04/04/18 04:38 04/04/18 05:00 Temperature Pulse Rate 73 84 Respiratory Rate 16 16 16 Blood Pressure 104/52 L Pulse Oximetry 98 98 04/04/18 05:15 04/04/18 05:30 04/04/18 05:45 Temperature Pulse Rate 81 80 79 Respiratory Rate 16 16 16 Blood Pressure 111/56 L 124/53 L 114/52 L Pulse Oximetry 98 98 98 04/04/18 06:00 04/04/18 06:15 04/04/18 06:30 Temperature Pulse Rate 79 77 79 Respiratory Rate 16 16 16 Blood Pressure 112/56 L 112/56 L 115/57 L Pulse Oximetry 98 99 99 04/04/18 06:45 04/04/18 07:00 04/04/18 07:15 Temperature Pulse Rate 79 78 76 Respiratory Rate 16 16 16 Blood Pressure 119/58 L 110/55 L 108/55 L Pulse Oximetry 99 99 99 04/04/18 07:30 04/04/18 07:45 04/04/18 08:00 Temperature 98.5 F Pulse Rate 86 80 81 Respiratory Rate 18 16 16 Blood Pressure 176/81 H 186/81 H 188/86 H Pulse Oximetry 100 99 99 04/04/18 08:15 08/27/18 08:27 04/04/18 08:30 Temperature Pulse Rate 80 81 Respiratory Rate 17 12 17 Blood Pressure 182/78 H 195/83 H Pulse Oximetry 98 100 98 04/04/18 08:45 04/04/18 08:56 04/04/18 09:00 Temperature Pulse Rate 86 86 89 Respiratory Rate 18 17 18 Blood Pressure 182/77 H 190/79 H 196/77 H Pulse Oximetry 97 97 97 04/04/18 09:09 04/04/18 09:15 04/04/18 09:30 Temperature Pulse Rate 90 94 H 94 H Respiratory Rate 18 18 17 Blood Pressure 185/77 H 178/74 H 177/76 H Pulse Oximetry 96 96 95 04/04/18 09:45 04/04/18 09:57 04/04/18 10:00 Temperature Pulse Rate 108 H 110 H 107 H Respiratory Rate 24 24 25 H Blood Pressure 172/73 H 181/79 H 186/78 H Pulse Oximetry 95 94 L 94 L 04/04/18 10:15 04/04/18 12:00 04/04/18 12:13 Temperature Pulse Rate 107 H 107 H Respiratory Rate 25 H Blood Pressure 180/79 H Pulse Oximetry 93 L 92 L Intake & Output 04/03/18 04/04/18 04/04/18 18:59 06:59 18:59 Intake Total 879 / 879 795 / 795 Output Total 750 / 750 300 / 300 Balance 129 / 129 495 / 495 Intake: IV 775 / 775 650 / 650 Nitroglycerin Drip Premix 50 mg 250 / 250 250 / 250 In 250 ml @ Per Protocol IV. CONT TITRATE PRN Rx#:[id number] Diprivan 1000 mg/100 ml Inj 1, 300 / 300 400 / 400 000 mg In 100 ml @ 5 MCG/KG/MIN 2.994 mls/hr IV.CONT TITRATE PRN Rx#:[id number] Aggrastat Inj 12,500 mcg In 250 225 / 225 ml @ 0.075 MCG/KG/MIN 8.981 mls/hr IV.CONT .Q24H VIVEK Rx#: [id number] Oral 0 / 0 Tube Feeding 44 / 44 145 / 145 Tube Irrigant 60 / 60 Output: Urine Amount (Catheter) 750 / 750 300 / 300 Indwelling Urethral Catheter 750 / 750 300 / 300 Other: Date of Last Bowel Movement 04/01/18 04/01/18 # Bowel Movements 0 0 - Constitutional no acute distress - Routine HEENT Exam Head: Present: normocephalic Eye: Present: PERRL ENT: Present: mucous membranes moist - Routine Respiratory Exam Present: patient mechanically ventilated, decreased breath sounds, rales, distant breath sounds - Routine Cardiovascular Exam Present: S1, S2, murmur, gallop, S4. Absent: rubs, S3, click - Routine Abdominal Exam Present: soft, normoactive bowel sounds - Routine Extremities Exam Present: edema, pulses intact, normal capillary refill. Absent: cyanosis, clubbing - Routine Skin Exam Present: warm - Routine Neurological Exam Unable to assess due to sedation. - Detailed Neurological Exam: Coma Scale Eye Opening: None Verbal Response: None Motor Response: None [place] Coma Scale Total: 3 - Routine Psychiatric Exam Present: unable to assess - Urinary Catheter Management Indwelling Urethral Catheter Cath placed during this visit: yes Reason for continuing: Acute urinary retention Insertion date: 04/01/18 Insertion time: 21:18 Assessment and Plan - Assessment (1) NSTEMI (non-ST elevated myocardial infarction) Code(s): I21.4 - Non-ST elevation (NSTEMI) myocardial infarction Status: Acute (2) Chronic kidney disease, stage 4, severely decreased GFR Code(s): N18.4 - Chronic kidney disease, stage 4 (severe) Status: Acute (3) Congestive heart failure Code(s): I50.9 - Heart failure, unspecified Status: Acute (4) Respiratory failure Code(s): J96.90 - Respiratory failure, unspecified, unspecified whether with hypoxia or hypercapnia Status: Acute (5) Hypertension Code(s): I10 - Essential (primary) hypertension Status: Acute (6) Diabetes Code(s): E11.9 - Type 2 diabetes mellitus without complications Status: Acute - Plan Patient's blood pressure is currently elevated, IV site infiltrated that contains the nitro gtt. Obtain a new IV site and continue nitro drip. 2D echo shows an EF of 55-60% with trace to mild mitral valve regurgitation and trace tricuspid valve regurgitation. Troponin levels are decreasing. She is currently not a candidate for cardiac catheterization due to significant renal insufficiency and high risk of contrast nephropathy and the need for permanent dialysis. Patient in atrial fibrillation, anticoagulation stopped due to significant bleeding. Nephrology evaluation in progress. Palliative care evaluation in progress, agree with current plan. The patient was seen and evaluated by Dr. Caba who participated in care, management and decision making. - Attending Attestation Patient seen and examined. I reviewed and agree with the evaluation and plan as presented. Continue ICU care. Overall prognosis guarded. Recommend palliative care evaluation.
[2018-04-05] MEDS: Propofol 1000 mg/100 ml Inj 1,000 MG/100 ML BOTTLE IV.CONT PRN ×2 (00:17→19:25)
[2018-04-05] MEDS: Insulin NovoLOG Aspart Correctional Sugar Inj SQ SCH ×6 (01:18→22:41)
[2018-04-05] MEDS: Oral Hygiene Kit OROPHARYNG SCH ×4 (01:19→17:18)
[2018-04-05] MEDS: Chlorhexidine Gluconate 2% 1 Pack (2 Cloths) TOPICAL SCH (06:05)
[2018-04-05] MEDS: Famotidine PF Inj 20 MG/2 ML Vial IV.PUSH SCH ×2 (09:33→22:56)
[2018-04-05] MEDS: amLODIPine 5 MG Tablet NG/OG SCH (09:33)
[2018-04-05] MEDS: Senna/Docusate Sodium 8.6/50 MG Tablet PO SCH ×2 (09:33→22:57)
[2018-04-05] MEDS: Chlorhexidine 0.12% Oral Kit 15 ML UDC OROPHARYNG SCH ×2 (09:34→22:42)
[2018-04-05 11:01] LABS: Baso # (Auto) 0.1 th/mm3 (0.0-0.2); Baso % (Auto) 0.4 % (0.0-2.0); Eos # (Auto) 0.2 th/mm3 (0.0-0.4); Eos % (Auto) 1.2 % (0.0-4.0); Hematocrit 28.6 % (35.0-46.0); Hemoglobin 9.3 gm/dL (11.6-15.3); Lymph # (Auto) 0.7 th/mm3 (1.0-4.8); Lymph % (Auto) 3.9 % (9.0-44.0); Mean Corpuscular HGB Conc 32.4 % (32.0-36.0); Mean Corpuscular Hemoglobin 27.4 pg (27.0-34.0); Mean Corpuscular Volume 84.6 fL (80.0-100.0); Mono % (Auto) 5.7 % (0.0-8.0); Neut # (Auto) 15.2 th/mm3 (1.8-7.7); Neut % (Auto) 88.8 % (16.0-70.0); Platelet Count 226 th/mm3 (150-450); Red Blood Count 3.38 mil/mm3 (4.00-5.30); Red Cell Distribution Width 15.5 % (11.6-17.2); White Blood Count 17.1 th/mm3 (4.0-11.0)
--- NOTE | 2018-04-05 11:06 | P.PNCA ---
Subjective Interval history: Patient is intubated on CPAP at this time. Patient does attempted to open eyes when name called. Patient does not follow any commands. Patient in no acute distress at this time. Family is at bedside. Physical Exam Vital signs: Vital Signs 04/04/18 11:00 04/04/18 11:15 04/04/18 11:30 Temperature Pulse Rate 104 H 119 H 106 H Respiratory Rate 25 H 24 24 Blood Pressure 172/73 H 170/74 H 173/79 H Pulse Oximetry 92 L 92 L 91 L 04/04/18 11:45 04/04/18 12:00 04/04/18 12:13 Temperature Pulse Rate 112 H 104 H Respiratory Rate 27 H 26 H Blood Pressure 158/68 H 152/67 H Pulse Oximetry 90 L 92 L 92 L 04/04/18 12:15 04/04/18 12:30 04/04/18 12:45 Temperature Pulse Rate 115 H 112 H 112 H Respiratory Rate 21 21 22 Blood Pressure 138/63 156/63 H 159/67 H Pulse Oximetry 91 L 91 L 91 L 04/04/18 13:00 04/04/18 13:15 04/04/18 13:30 Temperature Pulse Rate 118 H 113 H 112 H Respiratory Rate 23 17 17 Blood Pressure 155/70 H 155/66 H 142/59 H Pulse Oximetry 91 L 91 L 91 L 04/04/18 13:45 04/04/18 14:00 04/04/18 14:15 Temperature Pulse Rate 117 H 106 H 103 H Respiratory Rate 16 16 16 Blood Pressure 132/60 141/64 H 95/50 L Pulse Oximetry 92 L 92 L 93 L 04/04/18 14:30 04/04/18 14:46 04/04/18 15:00 Temperature Pulse Rate 103 H 110 H 105 H Respiratory Rate 16 16 16 Blood Pressure 107/52 L 119/55 L 120/60 Pulse Oximetry 93 L 93 L 93 L 04/04/18 15:15 04/04/18 15:30 04/04/18 15:45 Temperature Pulse Rate 107 H 106 H 106 H Respiratory Rate 16 16 16 Blood Pressure 126/61 131/59 L 123/57 L Pulse Oximetry 93 L 94 L 93 L 04/04/18 16:00 04/04/18 16:15 04/04/18 16:28 Temperature Pulse Rate 109 H 109 H Respiratory Rate 16 17 16 Blood Pressure 121/58 L 125/59 L Pulse Oximetry 94 L 94 L 94 L 04/04/18 18:00 04/04/18 20:00 04/04/18 20:14 Temperature 98.9 F Pulse Rate 109 H 103 H 102 H Respiratory Rate 17 16 Blood Pressure 130/61 Pulse Oximetry 95 96 04/04/18 22:00 04/05/18 00:00 04/05/18 01:41 Temperature 99.0 F Pulse Rate 97 H 92 H Respiratory Rate 16 17 Blood Pressure 105/51 L Pulse Oximetry 96 96 04/05/18 02:00 04/05/18 03:45 04/05/18 04:00 Temperature 98.9 F Pulse Rate 92 H 85 82 Respiratory Rate 16 16 Blood Pressure 162/70 H Pulse Oximetry 98 04/05/18 04:13 04/05/18 06:00 04/05/18 07:40 Temperature Pulse Rate 88 90 Respiratory Rate 16 22 Blood Pressure Pulse Oximetry 98 04/05/18 08:00 Temperature Pulse Rate Respiratory Rate 22 Blood Pressure Pulse Oximetry 96 Intake & Output 04/04/18 04/05/18 04/05/18 18:59 06:59 18:59 Intake Total 562 / 562 586 / 586 Output Total 900 / 900 1000 / 1000 Balance -338 / -338 -414 / -414 Intake: IV 100 / 100 100 / 100 Diprivan 1000 mg/100 ml Inj 1, 100 / 100 100 / 100 000 mg In 100 ml @ 5 MCG/KG/MIN 2.994 mls/hr IV.CONT TITRATE PRN Rx#:[id number] Oral 0 / 0 Tube Feeding 402 / 402 486 / 486 Water Bolus Amount 60 / 60 Output: Urine Amount (Catheter) 900 / 900 1000 / 1000 Indwelling Urethral Catheter 900 / 900 1000 / 1000 Other: Date of Last Bowel Movement 04/01/18 04/01/18 - Constitutional no acute distress, morbidly obese - Routine HEENT Exam Head: Present: normocephalic Eye: Present: PERRL ENT: Present: mucous membranes dry - Routine Neck Exam Present: supple - Routine Respiratory Exam Present: patient mechanically ventilated, distant breath sounds Comments: Patient currently on CPAP. - Routine Cardiovascular Exam Present: S1, S2, irregular rhythm. Absent: murmur, gallop, rubs - Routine Abdominal Exam Present: normoactive bowel sounds - Routine Extremities Exam Present: edema, pulses intact, normal capillary refill - Routine Skin Exam Present: intact - Routine Neurological Exam Patient responds to name and only attempts to open eyes, does not follow any commands. Propofol has been off since 7am today. - Detailed Neurological Exam: Coma Scale Eye Opening: To sound Verbal Response: None Motor Response: None [place] Coma Scale Total: 5 - Routine Psychiatric Exam Present: unable to assess - Urinary Catheter Management Indwelling Urethral Catheter Cath placed during this visit: yes Reason for continuing: Acute urinary retention Insertion date: 04/01/18 Insertion time: 21:18 Assessment and Plan - Assessment (1) NSTEMI (non-ST elevated myocardial infarction) Code(s): I21.4 - Non-ST elevation (NSTEMI) myocardial infarction Status: Acute (2) Chronic kidney disease, stage 4, severely decreased GFR Code(s): N18.4 - Chronic kidney disease, stage 4 (severe) Status: Acute (3) Congestive heart failure Code(s): I50.9 - Heart failure, unspecified Status: Acute (4) Respiratory failure Code(s): J96.90 - Respiratory failure, unspecified, unspecified whether with hypoxia or hypercapnia Status: Acute (5) Hypertension Code(s): I10 - Essential (primary) hypertension Status: Acute (6) Diabetes Code(s): E11.9 - Type 2 diabetes mellitus without complications Status: Acute - Plan Nitro gtt for hypertension. 2D echo shows an EF of 55-60% with trace to mild mitral valve regurgitation and trace tricuspid valve regurgitation. She is currently not a candidate for cardiac catheterization due to significant renal insufficiency and high risk of contrast nephropathy and the need for permanent dialysis. Discussed with family at bed side. Patient in atrial fibrillation, anticoagulation stopped due to significant bleeding. Nephrology evaluation in progress. Possibly starting patient on dialysis for fluid overload. Family informed us that she was stage 4 kidney disease prior to her hospitalization. Palliative care evaluation in progress, agree with current plan. Continue with current cardiac treatment plan. Discussed plan with family. The patient was seen and evaluated by Dr. Caba who participated in care, management and decision making. - Attending Attestation Patient seen and examined. I reviewed and agree with the evaluation and plan as presented. Overall prognosis remains guarded. Initiation of dialysis planned. Recommend comfort care. D/w the family.
[2018-04-05 11:13] LABS: Anion Gap 13 meq/L (5-15); Aspartate Aminotransferase 105 U/L (15-37); Blood Urea Nitrogen 69 mg/dL (7-18); Calcium 7.8 mg/dL (8.5-10.1); Carbon Dioxide 25.8 meq/L (21.0-32.0); Chloride 97 meq/L (98-107); Glomerular Filtration Rate 14 mL/min (>89); Glucose,Random 274 mg/dL (74-106); Potassium 4.5 meq/L (3.5-5.1); Sodium 136 meq/L (136-145)
[2018-04-05 11:17] LABS: Alanine Aminotransferase 37 U/L (10-53); Alkaline Phosphatase 109 U/L (45-117); Total Protein 6.3 g/dL (6.4-8.2)
--- NOTE | 2018-04-05 11:47 | P.PNCC ---
Subjective Subjective Remarks/Hospital Course: Hospital Course: Unable to obtain history from patient due to intubation. History obtained from discussion with Dr. Eduardo and with review of medical records. 77-year-old female with past medical history of hypertension, hyperlipidemia, diabetes, coronary artery disease with prior stenting 2003, reported history of CHF (no prior echo here). [facility] was summoned due to respiratory distress. She was hypoxic at the scene despite nonrebreather. She was started on BiPAP but ultimately required intubation at the scene. Her BP was 260/180 and she had bilateral rales and reported increased pedal edema. She was given Lasix 100 mg IV. Upon arrival she was sedated with propofol. Chest x-ray showed pulmonary edema. She was started on a nitroglycerin drip. She has diuresed 800 mL's. Afebrile. Subjective: 04/03: remains intubated and sedated. agitated on sedation vacation, not following commands. yesterday placed on Aggrastat and heparin for ACS. trops stable at ~7. today, bleeding from the hypopharynx which was initially very active, and we held all anticoagulation. after this stopped, we restarted heparin alone. forced diuresis continues and patient has net negative balance with improving BNP. 04/04: Remains intubated sedated. UO 1L. creat 3.2. Receiving IV Lasix 40 mg every 24 hours. At this time family is contemplating on dialysis. Dr. kirby is not planning for cardiac catheterization at this time. Because of bleeding from hypopharynx from intubation injury, oral anticoagulation except heparin stopped 04/05: Remains intubated and had been off sedation for the last 4 hours very lethargic possibly opens eyes. Urine output improved with increased dose of Lasix almost 2 L in 24 hours. BUN 69 creatinine 3.2 remains stable. Because of overall poor prognosis Dr. kirby is not planning on cardiac catheterization Objective Vital Signs / I&O: Vital Signs 04/04/18 11:30 04/04/18 11:45 04/04/18 12:00 Temperature Pulse Rate 106 H 112 H 104 H Respiratory Rate 24 27 H 26 H Blood Pressure 173/79 H 158/68 H 152/67 H Pulse Oximetry 91 L 90 L 92 L 04/04/18 12:13 04/04/18 12:15 04/04/18 12:30 Temperature Pulse Rate 115 H 112 H Respiratory Rate 21 21 Blood Pressure 138/63 156/63 H Pulse Oximetry 92 L 91 L 91 L 04/04/18 12:45 04/04/18 13:00 04/04/18 13:15 Temperature Pulse Rate 112 H 118 H 113 H Respiratory Rate 22 23 17 Blood Pressure 159/67 H 155/70 H 155/66 H Pulse Oximetry 91 L 91 L 91 L 04/04/18 13:30 04/04/18 13:45 04/04/18 14:00 Temperature Pulse Rate 112 H 117 H 106 H Respiratory Rate 17 16 16 Blood Pressure 142/59 H 132/60 141/64 H Pulse Oximetry 91 L 92 L 92 L 04/04/18 14:15 04/04/18 14:30 04/04/18 14:46 Temperature Pulse Rate 103 H 103 H 110 H Respiratory Rate 16 16 16 Blood Pressure 95/50 L 107/52 L 119/55 L Pulse Oximetry 93 L 93 L 93 L 04/04/18 15:00 04/04/18 15:15 04/04/18 15:30 Temperature Pulse Rate 105 H 107 H 106 H Respiratory Rate 16 16 16 Blood Pressure 120/60 126/61 131/59 L Pulse Oximetry 93 L 93 L 94 L 04/04/18 15:45 04/04/18 16:00 04/04/18 16:15 Temperature Pulse Rate 106 H 109 H 109 H Respiratory Rate 16 16 17 Blood Pressure 123/57 L 121/58 L 125/59 L Pulse Oximetry 93 L 94 L 94 L 04/04/18 16:28 04/04/18 18:00 04/04/18 20:00 Temperature 98.9 F Pulse Rate 109 H 103 H Respiratory Rate 16 17 Blood Pressure 130/61 Pulse Oximetry 94 L 95 04/04/18 20:14 04/04/18 22:00 04/05/18 00:00 Temperature 99.0 F Pulse Rate 102 H 97 H 92 H Respiratory Rate 16 16 Blood Pressure 105/51 L Pulse Oximetry 96 96 04/05/18 01:41 04/05/18 02:00 04/05/18 03:45 Temperature Pulse Rate 92 H 85 Respiratory Rate 17 16 Blood Pressure Pulse Oximetry 96 04/05/18 04:00 04/05/18 04:13 04/05/18 06:00 Temperature 98.9 F Pulse Rate 82 88 Respiratory Rate 16 16 Blood Pressure 162/70 H Pulse Oximetry 98 98 04/05/18 07:40 04/05/18 08:00 Temperature Pulse Rate 90 Respiratory Rate 22 22 Blood Pressure Pulse Oximetry 96 Intake & Output 04/04/18 04/05/18 04/05/18 18:59 06:59 18:59 Intake Total 562 / 562 586 / 586 Output Total 900 / 900 1000 / 1000 Balance -338 / -338 -414 / -414 Intake: IV 100 / 100 100 / 100 Diprivan 1000 mg/100 ml Inj 1, 100 / 100 100 / 100 000 mg In 100 ml @ 5 MCG/KG/MIN 2.994 mls/hr IV.CONT TITRATE PRN Rx#:[id number] Oral 0 / 0 Tube Feeding 402 / 402 486 / 486 Water Bolus Amount 60 / 60 Output: Urine Amount (Catheter) 900 / 900 1000 / 1000 Indwelling Urethral Catheter 900 / 900 1000 / 1000 Other: Date of Last Bowel Movement 04/01/18 04/01/18 Result Diagrams: 04/05/18 10:35 04/05/18 10:35 Objective Remarks: GENERAL: Obese elderly female, lying in bed, intubated, sedated HEENT: Normocephalic. Atraumatic. Pupils equal, round, reactive, conjugate. Orotracheally intubated NECK: Trachea is midline. Positive JVD up to the mid neck CHEST: Equal chest rise. PRVC mode of ventilation. Basilar crackles CARDIOVASCULAR: Normal rate, regular rhythm. Sinus. ABDOMEN: Obese, soft, nontender, nondistended. No guarding. MUSCULOSKELETAL: Pulses 2+. No peripheral edema. NEUROLOGICAL: RASS -2. Withdraws to pain. Moves extremities spontaneously did not follow command Assessment and Plan - Assessment and Plan Plan: Assessment: 77-year-old female with acute diastolic heart failure exacerbation with concomitant acute non-ST elevation myocardial infarction, most likely type II secondary to demand ischemia and hypertensive emergency, but possibly type I. Remains critically ill with minimal improvements in the last 24 hours. NEURO: Acute metabolic encephalopathy Remains off sedation but remains encephalopathy. DC propofol Lortab as needed for pain. Fentanyl as needed for breakthrough pain. RESP: Acute hypoxemic respiratory failure Prior tobacco abuse PRVC. Ventilator bundle. Wean FiO2 for sats greater than 92%. CPAP trial failed due to hypoxia and mental status Chest x-ray repeat today CV: Acute severe pulmonary edema -improving Hypertensive emergency Acute non-ST elevation myocardial infarction, likely type II History of coronary artery disease with prior stent 2003 Hyperlipidemia Acute diastolic heart failure exacerbation Serial troponins, EKG, 2D Echo normal LVEF Continue forced diuresis, increased Lasix to 40 mg IV every 12 on 04/04 Continues to be too bradycardic for beta-blockers Norvasc 10 mg daily. No LIZ inhibitor at this time due to kidney injury Previously intolerant to statin. ASA 81 daily. Off Heparin drip GI: Obesity OGT in place. tube feeds FEN/RENAL: Acute on chronic kidney disease. Acuity of this is unknown. Most recent available creatinine was 0.9 06/2009. Creat 3.2 -Nephrology following, start HD today but will discuss with family that may not be alone to liberate from ventilator Fernando is in place. Daily BMP Hyperkalemiaresolved Trend on BMP ID: Afebrile. Seems much less likely to be of infectious etiology at this point so we will monitor off antibiotics. No significant secretions with suctioning. monitor. HEME: Monitor CBC ENDO: Diabetes mellitus Monitor bedside glucose every 6 hours and administer medium dose sliding scale as indicated. PROPH: SCDs and sq heparin drip for DVT prophylaxis. Famotidine IV for stress ulcer prophylaxis. ACCESS: PIV providing adequate access at this time This patient remains critically ill with one or more organ systems which are or may become a threat to life. I have spent in excess of 32 minutes discontinuously in the care and management of this patient. This time is exclusive of procedures, and includes, but is not limited to, evaluation of the patient, review of the medical record, discussions with family, consultants, nursing staff, or respiratory therapy, and documentation in the medical record.
--- NOTE | 2018-04-05 12:00 | P.PNNP ---
Subjective Interval history: Patient remains on vent on CPAP FiO2 35% Physical Exam Vital signs: Vital Signs 04/04/18 12:00 04/04/18 12:13 04/04/18 12:15 Temperature Pulse Rate 104 H 115 H Respiratory Rate 26 H 21 Blood Pressure 152/67 H 138/63 Pulse Oximetry 92 L 92 L 91 L 04/04/18 12:30 04/04/18 12:45 04/04/18 13:00 Temperature Pulse Rate 112 H 112 H 118 H Respiratory Rate 21 22 23 Blood Pressure 156/63 H 159/67 H 155/70 H Pulse Oximetry 91 L 91 L 91 L 04/04/18 13:15 04/04/18 13:30 04/04/18 13:45 Temperature Pulse Rate 113 H 112 H 117 H Respiratory Rate 17 17 16 Blood Pressure 155/66 H 142/59 H 132/60 Pulse Oximetry 91 L 91 L 92 L 04/04/18 14:00 04/04/18 14:15 04/04/18 14:30 Temperature Pulse Rate 106 H 103 H 103 H Respiratory Rate 16 16 16 Blood Pressure 141/64 H 95/50 L 107/52 L Pulse Oximetry 92 L 93 L 93 L 04/04/18 14:46 04/04/18 15:00 04/04/18 15:15 Temperature Pulse Rate 110 H 105 H 107 H Respiratory Rate 16 16 16 Blood Pressure 119/55 L 120/60 126/61 Pulse Oximetry 93 L 93 L 93 L 04/04/18 15:30 04/04/18 15:45 04/04/18 16:00 Temperature Pulse Rate 106 H 106 H 109 H Respiratory Rate 16 16 16 Blood Pressure 131/59 L 123/57 L 121/58 L Pulse Oximetry 94 L 93 L 94 L 04/04/18 16:15 04/04/18 16:28 04/04/18 18:00 Temperature Pulse Rate 109 H 109 H Respiratory Rate 17 16 Blood Pressure 125/59 L Pulse Oximetry 94 L 94 L 04/04/18 20:00 04/04/18 20:14 04/04/18 22:00 Temperature 98.9 F Pulse Rate 103 H 102 H 97 H Respiratory Rate 17 16 Blood Pressure 130/61 Pulse Oximetry 95 96 04/05/18 00:00 04/05/18 01:41 04/05/18 02:00 Temperature 99.0 F Pulse Rate 92 H 92 H Respiratory Rate 16 17 Blood Pressure 105/51 L Pulse Oximetry 96 96 04/05/18 03:45 04/05/18 04:00 04/05/18 04:13 Temperature 98.9 F Pulse Rate 85 82 Respiratory Rate 16 16 16 Blood Pressure 162/70 H Pulse Oximetry 98 98 04/05/18 06:00 04/05/18 07:40 04/05/18 08:00 Temperature Pulse Rate 88 90 90 Respiratory Rate 22 22 Blood Pressure Pulse Oximetry 96 04/05/18 11:53 Temperature Pulse Rate Respiratory Rate 25 H Blood Pressure Pulse Oximetry 94 L Intake & Output 04/04/18 04/05/18 04/05/18 18:59 06:59 18:59 Intake Total 562 / 562 586 / 586 Output Total 900 / 900 1000 / 1000 Balance -338 / -338 -414 / -414 Intake: IV 100 / 100 100 / 100 Diprivan 1000 mg/100 ml Inj 1, 100 / 100 100 / 100 000 mg In 100 ml @ 5 MCG/KG/MIN 2.994 mls/hr IV.CONT TITRATE PRN Rx#:[id number] Oral 0 / 0 Tube Feeding 402 / 402 486 / 486 Water Bolus Amount 60 / 60 Output: Urine Amount (Catheter) 900 / 900 1000 / 1000 Indwelling Urethral Catheter 900 / 900 1000 / 1000 Other: Date of Last Bowel Movement 04/01/18 04/01/18 04/01/18 - Constitutional moderate distress - Routine HEENT Exam Eye: Present: EOMI - Routine Neck Exam Present: supple - Routine Respiratory Exam Present: decreased breath sounds - Routine Cardiovascular Exam Present: RRR - Routine Abdominal Exam Present: soft, normoactive bowel sounds - Routine Extremities Exam Present: edema - Urinary Catheter Management Indwelling Urethral Catheter Cath placed during this visit: yes Reason for continuing: Acute urinary retention Insertion date: 04/01/18 Insertion time: 21:18 Assessment and Plan - Assessment (1) Chronic kidney disease, stage 4, severely decreased GFR Code(s): N18.4 - Chronic kidney disease, stage 4 (severe) Status: Acute (2) Congestive heart failure Code(s): I50.9 - Heart failure, unspecified Status: Acute (3) Respiratory failure Code(s): J96.90 - Respiratory failure, unspecified, unspecified whether with hypoxia or hypercapnia Status: Acute (4) Hypertension Code(s): I10 - Essential (primary) hypertension Status: Acute (5) Diabetes Code(s): E11.9 - Type 2 diabetes mellitus without complications Status: Acute - Plan Patient has advanced kidney failure in chronic kidney disease stage IV by history: Diuretic has been started with the results creatinine is elevated creatinine 3.2 Patient is critically ill, intubated family made aware of possibility of hemodialysis they agreed to proceed Hemodialysis orders placed Family at bedside Avoid nephrotoxins Monitor diabetes and blood pressure.
[2018-04-05] MEDS ORDERED: Sod Chloride 0.9% Inj 1,000 ML IV.CONT PRN (12:07)
[2018-04-05] MEDS ORDERED: Acetaminophen 325 MG Tablet PO PRN (12:07)
[2018-04-05] MEDS ORDERED: Sod Chloride 0.9% Inj 1,000 ML OTHER PRN ×2 (12:07)
[2018-04-05] MEDS ORDERED: Heparin 10,000 UNITS/10 ML Vial (for IV use) OTHER PRN ×2 (12:07)
[2018-04-05] MEDS ORDERED: Gelatin 12 MM/7 MM Topical Foam TOPICAL PRN (12:07)
[2018-04-05] MEDS ORDERED: Albumin Human 25% Inj 100 ML IV.SIG PRN (12:07)
--- NOTE | 2018-04-05 12:20 | XR ---
EXAM DATE: 04/05/2018 12:15 PM EDT AGE/SEX: 77 years / Female INDICATIONS: Shortness of breath. CLINICAL DATA: This is the patient's subsequent encounter. Patient reports that signs and symptoms h ave been present for 3 days and indicates a pain score of Nonresponsive. MEDICAL/SURGICAL HISTORY: . Compression fracture. hyperkalemia. Non-responsive. COMPARISON: C, CHEST 1V SINGLE AP, 04/04/2018. . FINDINGS: Rotated AP view of the chest demonstrates a normal-sized cardiac silhouette calcification of the aort a. Endotracheal tube and nasogastric tube remain present and EKG lines overlie the patient. Lungs are hyperinflated with bibasilar opacity with a somewhat linear appearance. No pleural effusion or pneum othorax is identified. CONCLUSION: Improved aeration with bibasilar airspace opacities that have an appearance favoring subsegmental ate lectasis. Electronically signed by: Demarco Soto MD 04/05/2018 12:19 PM EDT
[2018-04-05 12:21] LABS: ABG Base Excess 1.1 mmol/L (-2-2); ABG PCO2 40 mmHg (38-42); ABG PO2 81 mmHG (61-120)
[2018-04-05] MEDS: Nitroglycerin Drip Premix 50 MG/250 ML BOTTLE IV.CONT PRN (12:29)
--- NOTE | 2018-04-05 13:36 | P.PNPAL ---
Reason for Visit Reason for visit: a. To assist with evaluation and management of symptoms including: pain, dyspnea b. To assist medical decision maker(s) with: better understanding of current medical conditions; weighing benefits/burdens of medical treatment options; making medical treatment decisions. Subjective Subjective/Interval History: Pt intubated on vent, sedation off. CPAP trials under way. Pt tolerating today. o2 sat 93 per ABG. WBC trending up. Afebrile. FAmily opting for dialysis. BUN and creatinine trending up. Appears comfortable. Seems to respond to name being called. Family/Friend Interactions: Family at bedside, discussed: -review Palliative care role, purpose, approach -family understanding of the current medical problems -family understanding of prognosis -Current medical treatment options and their benefits/burdens -Likely scenarios comparing ongoing aggressive care with transition to ``comfort -measures only - Questions answered to the best of my ability - Palliative care contact information provided Family opting to "try" dialysis. They freely acknowledge pt's prognosis is poor but they are hoping for a chance for her to "wake up" and say if she would want dialysis or not. They also want to see if it helps her cardiac status. If dialysis does not seem to be helpful, they feel they will be better able to "let her go." Objective Vital Signs: Vital Signs 04/04/18 13:00 04/04/18 13:15 04/04/18 13:30 Temperature Pulse Rate 118 H 113 H 112 H Respiratory Rate 23 17 17 Blood Pressure 155/70 H 155/66 H 142/59 H Pulse Oximetry 91 L 91 L 91 L 04/04/18 13:45 04/04/18 14:00 04/04/18 14:15 Temperature Pulse Rate 117 H 106 H 103 H Respiratory Rate 16 16 16 Blood Pressure 132/60 141/64 H 95/50 L Pulse Oximetry 92 L 92 L 93 L 04/04/18 14:30 04/04/18 14:46 04/04/18 15:00 Temperature Pulse Rate 103 H 110 H 105 H Respiratory Rate 16 16 16 Blood Pressure 107/52 L 119/55 L 120/60 Pulse Oximetry 93 L 93 L 93 L 04/04/18 15:15 04/04/18 15:30 04/04/18 15:45 Temperature Pulse Rate 107 H 106 H 106 H Respiratory Rate 16 16 16 Blood Pressure 126/61 131/59 L 123/57 L Pulse Oximetry 93 L 94 L 93 L 04/04/18 16:00 04/04/18 16:15 04/04/18 16:28 Temperature Pulse Rate 109 H 109 H Respiratory Rate 16 17 16 Blood Pressure 121/58 L 125/59 L Pulse Oximetry 94 L 94 L 94 L 04/04/18 18:00 04/04/18 20:00 04/04/18 20:14 Temperature 98.9 F Pulse Rate 109 H 103 H 102 H Respiratory Rate 17 16 Blood Pressure 130/61 Pulse Oximetry 95 96 04/04/18 22:00 04/05/18 00:00 04/05/18 01:41 Temperature 99.0 F Pulse Rate 97 H 92 H Respiratory Rate 16 17 Blood Pressure 105/51 L Pulse Oximetry 96 96 04/05/18 02:00 04/05/18 03:45 04/05/18 04:00 Temperature 98.9 F Pulse Rate 92 H 85 82 Respiratory Rate 16 16 Blood Pressure 162/70 H Pulse Oximetry 98 04/05/18 04:13 04/05/18 06:00 04/05/18 07:40 Temperature Pulse Rate 88 90 Respiratory Rate 16 22 Blood Pressure Pulse Oximetry 98 04/05/18 08:00 04/05/18 10:00 04/05/18 11:53 Temperature Pulse Rate 90 90 Respiratory Rate 22 25 H Blood Pressure Pulse Oximetry 96 94 L Intake & Output 04/04/18 04/05/18 04/05/18 18:59 06:59 18:59 Intake Total 562 / 562 836 / 836 Output Total 900 / 900 1000 / 1000 Balance -338 / -338 -164 / -164 Intake: IV 100 / 100 350 / 350 Nitroglycerin Drip Premix 50 mg 250 / 250 In 250 ml @ Per Protocol IV. CONT TITRATE PRN Rx#:[id number] Diprivan 1000 mg/100 ml Inj 1, 100 / 100 100 / 100 000 mg In 100 ml @ 5 MCG/KG/MIN 2.994 mls/hr IV.CONT TITRATE PRN Rx#:[id number] Oral 0 / 0 Tube Feeding 402 / 402 486 / 486 Water Bolus Amount 60 / 60 Output: Urine Amount (Catheter) 900 / 900 1000 / 1000 Indwelling Urethral Catheter 900 / 900 1000 / 1000 Other: Date of Last Bowel Movement 04/01/18 04/01/18 04/01/18 Physical Exam: CONSTITUTIONAL/GENERAL: This is an adequately nourished patient, sedated on vent TUBES/LINES/DRAINS: OETT, OGT, lerner SKIN: pale. No jaundice, rashes, or lesions. No wounds seen anteriorly. HEAD: Atraumatic. Normocephalic. EYES: PERRL. No scleral icterus. No injection or drainage. Fundi not examined. ENT: Hearing grossly normal. Nose without bleeding or purulent drainage. Throat exam limited by ET tube CARDIOVASCULAR: irr HR, tachycardic Peripheral pulses symmetric. RESPIRATORY/CHEST: Symmetric, unlabored respirations. coarse. Breath sounds equal bilaterally. GASTROINTESTINAL: Abdomen soft, nondistended. No hepato-splenomegaly, or palpable masses. GENITOURINARY: Without palpable bladder distension. Lerner catheter in place. MUSCULOSKELETAL: Extremities without clubbing, cyanosis. + trace BLE edema No mottling or clubbing. NEUROLOGICAL: sedated on vent. minimal response to name being called. lethargic. PSYCHIATRIC: unable to assess, sedated on vent Diagnostic Tests Laboratory: Laboratory Results - last 72 hr 04/02/18 04/02/18 04/02/18 12:13 12:20 12:20 WBC RBC Hgb Hct MCV MCH MCHC RDW Plt Count MPV Neut % (Auto) Lymph % (Auto) [place] % (Auto) Eos % (Auto) Baso % (Auto) Neut # (Auto) Lymph # (Auto) [place] # (Auto) Eos # (Auto) Baso # (Auto) WBC Differential Differential Comment PT INR APTT Fibrinogen Puncture Site Patient Temperature O2 Saturation ABG pH ABG pCO2 ABG pO2 ABG HCO3 ABG O2 Content ABG Base Excess ABG Methemoglobin Durga Test Hemoglobin Carboxyhemoglobin O2 Delivery Device Vent Setting Inspired O2 Critical Value Sodium Potassium 4.3 D Chloride Carbon Dioxide Anion Gap BUN Creatinine Estimated GFR POC Glucose Random Glucose Calcium Phosphorus Total Bilirubin AST ALT Alkaline Phosphatase Troponin I 7.73 H* D Cancelled Total Protein Albumin TSH Free T4 04/02/18 04/02/18 04/02/18 15:40 15:40 16:08 WBC 9.1 RBC 3.16 L Hgb 8.7 L Hct 27.3 L MCV 86.4 MCH 27.5 MCHC 31.9 L RDW 15.4 Plt Count 190 MPV 11.2 H Neut % (Auto) 72.0 H Lymph % (Auto) 16.4 [place] % (Auto) 6.8 Eos % (Auto) 3.9 Baso % (Auto) 0.9 Neut # (Auto) 6.6 Lymph # (Auto) 1.5 [place] # (Auto) 0.6 Eos # (Auto) 0.4 Baso # (Auto) 0.1 WBC Differential . Differential Comment Auto diff final PT INR APTT 79.3 H D Fibrinogen Puncture Site Patient Temperature O2 Saturation ABG pH ABG pCO2 ABG pO2 ABG HCO3 ABG O2 Content ABG Base Excess ABG Methemoglobin Durga Test Hemoglobin Carboxyhemoglobin O2 Delivery Device Vent Setting Inspired O2 Critical Value Sodium Potassium Chloride Carbon Dioxide Anion Gap BUN Creatinine Estimated GFR POC Glucose 210 H Random Glucose Calcium Phosphorus Total Bilirubin AST ALT Alkaline Phosphatase Troponin I Total Protein Albumin TSH Free T4 04/02/18 04/02/18 04/02/18 19:28 21:01 23:31 WBC RBC Hgb Hct MCV MCH MCHC RDW Plt Count MPV Neut % (Auto) Lymph % (Auto) [place] % (Auto) Eos % (Auto) Baso % (Auto) Neut # (Auto) Lymph # (Auto) [place] # (Auto) Eos # (Auto) Baso # (Auto) WBC Differential Differential Comment PT INR APTT 59.1 H D Fibrinogen Puncture Site Patient Temperature O2 Saturation ABG pH ABG pCO2 ABG pO2 ABG HCO3 ABG O2 Content ABG Base Excess ABG Methemoglobin Durga Test Hemoglobin Carboxyhemoglobin O2 Delivery Device Vent Setting Inspired O2 Critical Value Sodium Potassium Chloride Carbon Dioxide Anion Gap BUN Creatinine Estimated GFR POC Glucose 206 H 271 H Random Glucose Calcium Phosphorus Total Bilirubin AST ALT Alkaline Phosphatase Troponin I Total Protein Albumin TSH Free T4 04/03/18 04/03/18 04/03/18 03:15 03:25 03:25 WBC 13.0 H RBC 3.20 L Hgb 8.9 L Hct 27.1 L MCV 84.8 MCH 27.7 MCHC 32.6 RDW 15.7 Plt Count 199 MPV 11.6 H Neut % (Auto) Lymph % (Auto) [place] % (Auto) Eos % (Auto) Baso % (Auto) Neut # (Auto) Lymph # (Auto) [place] # (Auto) Eos # (Auto) Baso # (Auto) WBC Differential Differential Comment PT INR APTT Fibrinogen Puncture Site Patient Temperature O2 Saturation ABG pH ABG pCO2 ABG pO2 ABG HCO3 ABG O2 Content ABG Base Excess ABG Methemoglobin Durga Test Hemoglobin Carboxyhemoglobin O2 Delivery Device Vent Setting Inspired O2 Critical Value Sodium 140 Potassium 4.6 Chloride 101 Carbon Dioxide 27.1 Anion Gap 12 BUN 56 H Creatinine 2.82 H Estimated GFR 16 L POC Glucose 247 H Random Glucose 240 H Calcium 8.6 D Phosphorus 4.8 Total Bilirubin AST ALT Alkaline Phosphatase Troponin I Total Protein Albumin TSH 0.673 Free T4 1.25 04/03/18 04/03/18 04/03/18 03:25 07:39 12:37 WBC RBC Hgb Hct MCV MCH MCHC RDW Plt Count MPV Neut % (Auto) Lymph % (Auto) [place] % (Auto) Eos % (Auto) Baso % (Auto) Neut # (Auto) Lymph # (Auto) [place] # (Auto) Eos # (Auto) Baso # (Auto) WBC Differential Differential Comment PT INR APTT 60.7 H Fibrinogen Puncture Site Patient Temperature O2 Saturation ABG pH ABG pCO2 ABG pO2 ABG HCO3 ABG O2 Content ABG Base Excess ABG Methemoglobin Durga Test Hemoglobin Carboxyhemoglobin O2 Delivery Device Vent Setting Inspired O2 Critical Value Sodium Potassium Chloride Carbon Dioxide Anion Gap BUN Creatinine Estimated GFR POC Glucose 195 H 217 H Random Glucose Calcium Phosphorus Total Bilirubin AST ALT Alkaline Phosphatase Troponin I Total Protein Albumin TSH Free T4 04/03/18 04/03/18 04/03/18 15:39 16:15 21:16 WBC RBC Hgb Hct MCV MCH MCHC RDW Plt Count MPV Neut % (Auto) Lymph % (Auto) [place] % (Auto) Eos % (Auto) Baso % (Auto) Neut # (Auto) Lymph # (Auto) [place] # (Auto) Eos # (Auto) Baso # (Auto) WBC Differential Differential Comment PT INR APTT Fibrinogen Puncture Site Patient Temperature O2 Saturation ABG pH ABG pCO2 ABG pO2 ABG HCO3 ABG O2 Content ABG Base Excess ABG Methemoglobin Durga Test Hemoglobin Carboxyhemoglobin O2 Delivery Device Vent Setting Inspired O2 Critical Value Sodium Potassium Chloride Carbon Dioxide Anion Gap BUN Creatinine Estimated GFR POC Glucose 220 H 289 H Random Glucose Calcium Phosphorus Total Bilirubin AST ALT Alkaline Phosphatase Troponin I 2.44 H* D Total Protein Albumin TSH Free T4 0804/04/18 04/04/18 23:38 03:31 03:31 WBC 11.1 H RBC 3.30 L Hgb 8.9 L Hct 28.1 L MCV 85.1 MCH 27.1 MCHC 31.8 L RDW 15.6 Plt Count 214 MPV 11.2 H Neut % (Auto) 82.2 H Lymph % (Auto) 8.7 L [place] % (Auto) 6.7 Eos % (Auto) 1.7 Baso % (Auto) 0.7 Neut # (Auto) 9.1 H Lymph # (Auto) 1.0 [place] # (Auto) 0.7 Eos # (Auto) 0.2 Baso # (Auto) 0.1 WBC Differential . Differential Comment Auto diff final PT INR APTT 49.3 H Fibrinogen Puncture Site Patient Temperature O2 Saturation ABG pH ABG pCO2 ABG pO2 ABG HCO3 ABG O2 Content ABG Base Excess ABG Methemoglobin Durga Test Hemoglobin Carboxyhemoglobin O2 Delivery Device Vent Setting Inspired O2 Critical Value Sodium Potassium Chloride Carbon Dioxide Anion Gap BUN Creatinine Estimated GFR POC Glucose 315 H Random Glucose Calcium Phosphorus Total Bilirubin AST ALT Alkaline Phosphatase Troponin I Total Protein Albumin TSH Free T4 04/04/18 04/04/18 04/04/18 03:31 03:31 03:36 WBC RBC Hgb Hct MCV MCH MCHC RDW Plt Count MPV Neut % (Auto) Lymph % (Auto) [place] % (Auto) Eos % (Auto) Baso % (Auto) Neut # (Auto) Lymph # (Auto) [place] # (Auto) Eos # (Auto) Baso # (Auto) WBC Differential Differential Comment PT 10.6 INR 1.0 APTT Fibrinogen 657 H Puncture Site Patient Temperature O2 Saturation ABG pH ABG pCO2 ABG pO2 ABG HCO3 ABG O2 Content ABG Base Excess ABG Methemoglobin Durga Test Hemoglobin Carboxyhemoglobin O2 Delivery Device Vent Setting Inspired O2 Critical Value Sodium 138 Potassium 4.2 Chloride 99 Carbon Dioxide 25.2 Anion Gap 14 BUN 63 H Creatinine 3.21 H Estimated GFR 14 L POC Glucose 291 H Random Glucose 252 H Calcium 8.0 L Phosphorus Total Bilirubin AST ALT Alkaline Phosphatase Troponin I Total Protein Albumin TSH Free T4 04/04/18 04/04/18 04/04/18 08:51 11:37 11:40 WBC RBC Hgb Hct MCV MCH MCHC RDW Plt Count MPV Neut % (Auto) Lymph % (Auto) [place] % (Auto) Eos % (Auto) Baso % (Auto) Neut # (Auto) Lymph # (Auto) [place] # (Auto) Eos # (Auto) Baso # (Auto) WBC Differential Differential Comment PT INR APTT Fibrinogen Puncture Site Right radial Patient Temperature 98.6 O2 Saturation 88 L* ABG pH 7.46 H ABG pCO2 35 L ABG pO2 62 ABG HCO3 25 ABG O2 Content 18.6 ABG Base Excess 1.4 ABG Methemoglobin 1.7 Durga Test Present Hemoglobin 15.0 Carboxyhemoglobin 0.8 O2 Delivery Device Ventilator Vent Setting Cpap5/ps 10 Inspired O2 35 Critical Value Yes Sodium Potassium Chloride Carbon Dioxide Anion Gap BUN Creatinine Estimated GFR POC Glucose 214 H 237 H Random Glucose Calcium Phosphorus Total Bilirubin AST ALT Alkaline Phosphatase Troponin I Total Protein Albumin TSH Free T4 04/04/18 04/04/18 04/05/18 15:56 21:35 01:13 WBC RBC Hgb Hct MCV MCH MCHC RDW Plt Count MPV Neut % (Auto) Lymph % (Auto) [place] % (Auto) Eos % (Auto) Baso % (Auto) Neut # (Auto) Lymph # (Auto) [place] # (Auto) Eos # (Auto) Baso # (Auto) WBC Differential Differential Comment PT INR APTT Fibrinogen Puncture Site Patient Temperature O2 Saturation ABG pH ABG pCO2 ABG pO2 ABG HCO3 ABG O2 Content ABG Base Excess ABG Methemoglobin Durga Test Hemoglobin Carboxyhemoglobin O2 Delivery Device Vent Setting Inspired O2 Critical Value Sodium Potassium Chloride Carbon Dioxide Anion Gap BUN Creatinine Estimated GFR POC Glucose 256 H 288 H 293 H Random Glucose Calcium Phosphorus Total Bilirubin AST ALT Alkaline Phosphatase Troponin I Total Protein Albumin TSH Free T4 04/05/18 04/05/18 04/05/18 05:54 07:00 07:36 WBC RBC Hgb Hct MCV MCH MCHC RDW Plt Count MPV Neut % (Auto) Lymph % (Auto) [place] % (Auto) Eos % (Auto) Baso % (Auto) Neut # (Auto) Lymph # (Auto) [place] # (Auto) Eos # (Auto) Baso # (Auto) WBC Differential Differential Comment PT INR APTT 22.9 L D Fibrinogen Puncture Site Patient Temperature O2 Saturation ABG pH ABG pCO2 ABG pO2 ABG HCO3 ABG O2 Content ABG Base Excess ABG Methemoglobin Durga Test Hemoglobin Carboxyhemoglobin O2 Delivery Device Vent Setting Inspired O2 Critical Value Sodium Potassium Chloride Carbon Dioxide Anion Gap BUN Creatinine Estimated GFR POC Glucose 246 H 244 H Random Glucose Calcium Phosphorus Total Bilirubin AST ALT Alkaline Phosphatase Troponin I Total Protein Albumin TSH Free T4 04/05/18 04/05/18 04/05/18 10:35 10:35 11:10 WBC 17.1 H RBC 3.38 L Hgb 9.3 L Hct 28.6 L MCV 84.6 MCH 27.4 MCHC 32.4 RDW 15.5 Plt Count 226 MPV 11.0 Neut % (Auto) 88.8 H Lymph % (Auto) 3.9 L [place] % (Auto) 5.7 Eos % (Auto) 1.2 Baso % (Auto) 0.4 Neut # (Auto) 15.2 H Lymph # (Auto) 0.7 L [place] # (Auto) 1.0 H Eos # (Auto) 0.2 Baso # (Auto) 0.1 WBC Differential . Differential Comment Auto diff final PT INR APTT Fibrinogen Puncture Site Patient Temperature O2 Saturation ABG pH ABG pCO2 ABG pO2 ABG HCO3 ABG O2 Content ABG Base Excess ABG Methemoglobin Durga Test Hemoglobin Carboxyhemoglobin O2 Delivery Device Vent Setting Inspired O2 Critical Value Sodium 136 Potassium 4.5 Chloride 97 L Carbon Dioxide 25.8 Anion Gap 13 BUN 69 H Creatinine 3.22 H Estimated GFR 14 L POC Glucose 311 H Random Glucose 274 H Calcium 7.8 L Phosphorus Total Bilirubin 0.5 AST 105 H ALT 37 Alkaline Phosphatase 109 Troponin I Total Protein 6.3 L D Albumin 2.0 L TSH Free T4 04/05/18 12:15 WBC RBC Hgb Hct MCV MCH MCHC RDW Plt Count MPV Neut % (Auto) Lymph % (Auto) [place] % (Auto) Eos % (Auto) Baso % (Auto) Neut # (Auto) Lymph # (Auto) [place] # (Auto) Eos # (Auto) Baso # (Auto) WBC Differential Differential Comment PT INR APTT Fibrinogen Puncture Site Right radial Patient Temperature 98.6 O2 Saturation 93 ABG pH 7.42 ABG pCO2 40 ABG pO2 81 ABG HCO3 25 ABG O2 Content 12.4 ABG Base Excess 1.1 ABG Methemoglobin 1.5 Durga Test Present Hemoglobin 9.4 L Carboxyhemoglobin 1.0 O2 Delivery Device Ventilator Vent Setting Cpap 5/5ps Inspired O2 35 Critical Value No Sodium Potassium Chloride Carbon Dioxide Anion Gap BUN Creatinine Estimated GFR POC Glucose Random Glucose Calcium Phosphorus Total Bilirubin AST ALT Alkaline Phosphatase Troponin I Total Protein Albumin TSH Free T4 Result Diagrams: 04/05/18 10:35 04/05/18 10:35 Microbiology: Microbiology 04/03/18 12:30 Gram Stain - Final Sputum - Endotracheal Sputum Culture - Preliminary 04/01/18 21:20 Aerobic Blood Culture - Preliminary Blood - Peripheral No growth in 4 days Anaerobic Blood Culture - Preliminary No growth in 4 days 04/01/18 21:15 Aerobic Blood Culture - Preliminary Blood - Peripheral No growth in 4 days Anaerobic Blood Culture - Preliminary No growth in 4 days Imaging: ITS Impressions Chest X-Ray 04/05/18 00:00 CONCLUSION: Improved aeration with bibasilar airspace opacities that have an appearance favoring subsegmental atelectasis. Assessment and Plan - Disease Oriented Problem List (1) Chronic kidney disease, stage 4, severely decreased GFR (2) Congestive heart failure (3) Respiratory failure (4) Hypertension (5) Diabetes (6) NSTEMI (non-ST elevated myocardial infarction) Pertinent Non-Medical Issues: Psychosocial: Pt originally from [place], then moved to [place]. Has divided her time between [place] and [place] over the last 10 years. Recently living with Daughter who is local. 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 . Has 3 children. Spiritual: Adventism. Familly requests pastoral care Legal: Pt not capacitated to make decisions. In absence of designated HCS medical decision makin falls to the majority of pt's 3 children. Family appears to be working together. Ethical issues impacting care: Important Contacts: Meliza Murrell [phone] cell [phone] brother in [place] Jorje [phone] Prognosis: 77 yo female, with CKD 4, type 2 DM noncompliant with insulin, admitted 04/01 with chest pain, SOB. Found to have NSTEMI. Cardiology not wanting to do cath procedure, recommending medical mgmt including anticoagulation but this is held currently 2/2 hypopharyngeal bleeding from intubaiton injury. nephrology recommending dialysis. Pt with worsening kidney function. Failed initial spontaneous breathing trials 2/2 agitation, mental status. Prognosis w/o dialysis extremely poor. Even with dialysis pt not likely to return to baseline. Code Status: Alternative Code (intubation only) Plan: - LEGAL DECISON MAKER -patient not capacitated to make medical decisions. In the absence of designated healthcare surrogate, per [place] statutes proxy decision-making falls to majority of 3 children. Family appears to be working together. - CODE STATUS- alt code intubation only - GOALS - aggressive short of intubation only. Majority of pt's children present. Family opting to "try" dialysis. They freely acknowledge pt's prognosis is poor but they are hoping for a chance for her to "wake up" and say if she would want dialysis or not. They also want to see if it helps her cardiac status. - SYMPTOMS - * pain - multifactorial, acute and chronic. at time of admission had chest pain. pt had sciatica, had just had injection. pt also had neuropathy per family. on my eval she appears comfortable. fentanyl 50mcg IV PRN- has not been given, pain mgmt per [facility] * dyspnea - had SOB prior to arrival. increasing activity intolerance over last few weeks. intubated prior to arrival. Found to have NSTEMI. cardiology recommending medical mgmt, no cath. familiy wants to try dialysis, feel this is reasonable attempt to optimize pt status prior to making further decisions about goals of medical tx. tolerating CPAP trails at time of my eval, per ABD o2 sat 93. off sedation. has JANES simental - d/w RN - Palliative care will continue to follow during hospital course as condition evolves, to assist patient/decision-maker with understanding of medical conditions, weighing benefits/burdens of treatment options, for clarification of goals of treatment. Additionally will assist with any symptoms of palliative concern Attestation Attestation: To help prompt me to consider important information that might be impacting today's encounter and assessment, information from prior notes written by myself or my colleagues may have been "brought forward" into today's note. My signature on this note, however, is an attestation that I personally performed the exam, history, and/or decision-making noted today, and, unless otherwise indicated, the interactions with patient, family, and staff as well as the review of records all occurred today. I also attest that the listed assessment and stated plan reflect my best clinical judgment today based on the combination of historical information, prior notes, and today's exam/ interactions. When time spent is documented, it refers only to time spent today by the signer, or if indicated, combined time spent today by collaborating physician/nurse practitioner.
--- NOTE | 2018-04-05 14:44 | P.PCN ---
Date of procedure: 04/05/18 Pre-op diagnosis: Renal failure Post-op diagnosis: same Procedure: US guided right IJ Vas-Cath placement Central line checklist completed, timeout completed. I wore a surgical cap, mask with protective eyewear, full gown and sterile gloves throughout the procedure. Right neck region was prepped using chlorhexidine scrub and draped in sterile fashion. The right internal jugular vein was identified using the ultrasound. Anesthesia was achieved over the vein using 1% lidocaine. The introducer needle was inserted into the right IJ under direct ultrasound visualization. Venous blood was withdrawn. The syringe was removed and a guidewire was advanced into the introducer needle. A small incision was made at the skin surface with a scalpel and the introducer needle was exchanged for dilator x2 over the guidewire. After appropriate dilation was obtained, the dilator was exchanged over the wire for a double lumen, 14F, 20 cm HD catheter. The wire was removed and the catheter was sutured in place at 18 cm. A sterile central line dressing was placed over the catheter at the insertion site. The patient tolerated the procedure without any hemodynamic compromise. At time of procedure completion, all ports aspirated and flushed properly. Post-procedure chest x-ray is pending at this time. Surgeon: Drake Pal Estimated blood loss (mL): 2 Pathology: none sent Condition: critical Disposition: ICU
[2018-04-05 15:06] LABS: Hepatitits B Surface Antigen Nonreactive (Nonreactive)
--- NOTE | 2018-04-05 15:09 | XR ---
EXAM DATE: 04/05/2018 2:54 PM EDT AGE/SEX: 77 years / Female INDICATIONS: Post vas cath placement. CLINICAL DATA: This is the patient's subsequent encounter. Patient reports that signs and symptoms h ave been present for 1 day and indicates a pain score of Nonresponsive. MEDICAL/SURGICAL HISTORY: . Compression fracture. hyperkalemia. Non-responsive. COMPARISON: [facility], CHEST 1V SINGLE AP, 04/05/2018. . FINDINGS: The cardiac silhouette is enlarged in transverse diameter. Support lines and tubes are in satisfactor y position. There is increasing right basilar atelectasis versus pneumonia. A right jugular venous ca theter is exiting the subclavian vein. There is no evidence of pneumothorax. CONCLUSION: Right internal jugular venous catheter within the region of the right subclavian vein. There is no ev idence of pneumothorax. Electronically signed by: Naif Fung MD 04/05/2018 3:08 PM EDT
[2018-04-05 15:28] LABS: Hepatitis A IgM Antibody Nonreactive (Nonreactive)
--- NOTE | 2018-04-05 16:15 | XR ---
EXAM DATE: 04/05/2018 3:48 PM EDT AGE/SEX: 77 years / Female INDICATIONS: Status post vas cath placement. CLINICAL DATA: This is the patient's initial encounter. Patient reports that signs and symptoms have been present for 1 day and indicates a pain score of Nonresponsive. MEDICAL/SURGICAL HISTORY: . Hyperkalemia. Non-responsive. COMPARISON: [facility], CHEST 1V SINGLE AP, 04/05/2018. . FINDINGS: Endotracheal tube tip at the inferior margin of clavicles. A left jugular central venous catheter is noted in the tip overlies the expected location of the SVC/right atrial junction. There is cardiomega ly. Improved aeration of the right lung base though basilar airspace disease remains bilaterally. Lef t midlung atelectasis. Enteric tube courses beneath the diaphragm. A right jugular central venous cat heter is seen and the tip overlies the expected location of the SVC. I do not see a pneumothorax.. CONCLUSION: Central venous catheter placement as above. Electronically signed by: Devon Scott MD 04/05/2018 4:13 PM EDT
--- NOTE | 2018-04-05 18:01 | P.PCN ---
Date of procedure: 04/05/18 Pre-op diagnosis: HD catheter replacement Post-op diagnosis: same Procedure: US guided Left IJ Vas-Cath placement Central line checklist completed, time out completed. I wore a surgical cap, mask with protective eyewear, full gown and sterile gloves throughout the procedure. Right neck IJ vascath was removed, due to inadequate positioning into the right subclavian vein. The left neck region was prepped using chlorhexidine scrub and draped in sterile fashion. The left internal jugular vein was identified using the ultrasound. Anesthesia was achieved over the vein using 1% lidocaine. The introducer needle was inserted into the left IJ under direct ultrasound visualization. Venous blood was withdrawn. The syringe was removed and a guidewire was advanced into the introducer needle. A small incision was made at the skin surface with a scalpel and the introducer needle was exchanged for dilator x2 over the guidewire. After appropriate dilation was obtained, the dilator was exchanged over the wire for a double lumen, 14F, 24 cm HD catheter. The wire was removed and the catheter was sutured in place at 22 cm. A sterile central line dressing was placed over the catheter at the insertion site. The patient tolerated the procedure without any hemodynamic compromise. At time of procedure completion, all ports aspirated and flushed properly. Post-procedure chest x-ray is pending at this time. Anesthesia: local Surgeon: Drake Pal Estimated blood loss (mL): 2 Pathology: none sent Condition: critical Disposition: ICU
[2018-04-05] MEDS ORDERED: Sod Chloride 0.9% Inj 1,000 ML IV.SIG SCH (20:00)
[2018-04-05] MEDS ORDERED: Metoprolol Inj 5 MG/5 ML Vial ONE (22:49)
[2018-04-06] MEDS: Metoprolol Inj 5 MG/5 ML Vial IV.PUSH SCH ×2 (02:22→02:23)
[2018-04-06] MEDS: Insulin NovoLOG Aspart Correctional Sugar Inj SQ SCH ×7 (02:23→23:56)
[2018-04-06] MEDS: Oral Hygiene Kit OROPHARYNG SCH ×4 (02:24→16:27)
[2018-04-06 05:06] LABS: Hematocrit 29.2 % (35.0-46.0); Hemoglobin 9.3 gm/dL (11.6-15.3); Mean Corpuscular HGB Conc 31.8 % (32.0-36.0); Mean Corpuscular Hemoglobin 27.4 pg (27.0-34.0); Mean Platelet Volume 10.9 fL (7.0-11.0); Platelet Count 228 th/mm3 (150-450); Red Blood Count 3.39 mil/mm3 (4.00-5.30); Red Cell Distribution Width 15.8 % (11.6-17.2); White Blood Count 11.3 th/mm3 (4.0-11.0)
[2018-04-06 05:48] LABS: Albumin 1.8 g/dL (3.4-5.0); Anion Gap 12 meq/L (5-15); Aspartate Aminotransferase 93 U/L (15-37); Blood Urea Nitrogen 60 mg/dL (7-18); Carbon Dioxide 26.7 meq/L (21.0-32.0); Chloride 102 meq/L (98-107); Glomerular Filtration Rate 18 mL/min (>89); Glucose,Random 339 mg/dL (74-106); Potassium 4.1 meq/L (3.5-5.1); Sodium 141 meq/L (136-145)
[2018-04-06 05:53] LABS: Alanine Aminotransferase 47 U/L (10-53); Alkaline Phosphatase 134 U/L (45-117); Total Protein 6.3 g/dL (6.4-8.2)
--- NOTE | 2018-04-06 06:09 | XR ---
EXAM DATE: 04/06/2018 6:04 AM EDT AGE/SEX: 77 years / Female INDICATIONS: Shortness of breath. CLINICAL DATA: This is the patient's subsequent encounter. Patient reports that signs and symptoms h ave been present for 2 days and indicates a pain score of Nonresponsive. MEDICAL/SURGICAL HISTORY: None. None. COMPARISON: [facility] [place], CHEST 1V SINGLE AP, 04/05/2018. . FINDINGS: Mild bibasilar consolidation improved. No large effusion. No pneumothorax. Heart size stable, within normal limits. Endotracheal tube tip is approximately 2.5 cm above the janessa. There is a nasogastric tube coursing in the stomach. Left internal jugular central venous catheter with tip in the right atrium again note d. CONCLUSION: Improving bibasilar consolidation, now very mild. Electronically signed by: Demarco Keen MD 04/06/2018 6:08 AM EDT
[2018-04-06] MEDS: Chlorhexidine Gluconate 2% 1 Pack (2 Cloths) TOPICAL SCH (06:38)
[2018-04-06] MEDS: dilTIAZem Inj 125 MG in Sodium Chlor 0.9% Inj 100 ML IV.CONT PRN (07:58)
[2018-04-06] MEDS ORDERED: Metoprolol Inj 5 MG/5 ML Vial IV.PUSH ONE (08:45)
--- NOTE | 2018-04-06 09:32 | P.PNCC ---
Subjective Subjective Remarks/Hospital Course: Hospital Course: Unable to obtain history from patient due to intubation. History obtained from discussion with Dr. Eduardo and with review of medical records. 77-year-old female with past medical history of hypertension, hyperlipidemia, diabetes, coronary artery disease with prior stenting 2003, reported history of CHF (no prior echo here). [facility] was summoned due to respiratory distress. She was hypoxic at the scene despite nonrebreather. She was started on BiPAP but ultimately required intubation at the scene. Her BP was 260/180 and she had bilateral rales and reported increased pedal edema. She was given Lasix 100 mg IV. Upon arrival she was sedated with propofol. Chest x-ray showed pulmonary edema. She was started on a nitroglycerin drip. She has diuresed 800 mL's. Afebrile. Subjective: 04/03: remains intubated and sedated. agitated on sedation vacation, not following commands. yesterday placed on Aggrastat and heparin for ACS. trops stable at ~7. today, bleeding from the hypopharynx which was initially very active, and we held all anticoagulation. after this stopped, we restarted heparin alone. forced diuresis continues and patient has net negative balance with improving BNP. 04/04: Remains intubated sedated. UO 1L. creat 3.2. Receiving IV Lasix 40 mg every 24 hours. At this time family is contemplating on dialysis. Dr. kirby is not planning for cardiac catheterization at this time. Because of bleeding from hypopharynx from intubation injury, oral anticoagulation except heparin stopped 04/05: Remains intubated and had been off sedation for the last 4 hours very lethargic possibly opens eyes. Urine output improved with increased dose of Lasix almost 2 L in 24 hours. BUN 69 creatinine 3.2 remains stable. Because of overall poor prognosis Dr. kirby is not planning on cardiac catheterization 04/06: Start on hemodialysis yesterday after Vas-Cath was placed, about 1.25 L removed. Today morning patient developed A. fib with RVR heart rate in 150s. No response to 2.5 mg IV push of metoprolol. Started on Cardizem push IV 15 mg followed by infusion. Family updated about the condition. Patient's neuro status remains poor Objective Vital Signs / I&O: Vital Signs 04/05/18 10:00 04/05/18 10:30 04/05/18 10:45 Temperature Pulse Rate 90 99 H 96 H Respiratory Rate 27 H 28 H Blood Pressure 142/67 H Pulse Oximetry 95 95 04/05/18 11:00 04/05/18 11:15 04/05/18 11:30 Temperature Pulse Rate 99 H 102 H 104 H Respiratory Rate 27 H 27 H 29 H Blood Pressure 146/65 H 122/59 L 138/63 Pulse Oximetry 95 94 L 94 L 04/05/18 11:45 04/05/18 11:53 04/05/18 12:00 Temperature Pulse Rate 104 H 105 H Respiratory Rate 29 H 25 H 28 H Blood Pressure 130/61 150/65 H Pulse Oximetry 94 L 94 L 95 04/05/18 12:15 04/05/18 12:30 04/05/18 12:45 Temperature Pulse Rate 117 H 123 H 109 H Respiratory Rate 30 H 30 H 27 H Blood Pressure 148/67 H 154/63 H 161/69 H Pulse Oximetry 95 95 94 L 04/05/18 13:00 04/05/18 13:15 04/05/18 13:30 Temperature Pulse Rate 106 H 112 H 105 H Respiratory Rate 26 H 26 H 25 H Blood Pressure 144/67 H 142/59 H 149/63 H Pulse Oximetry 94 L 95 95 04/05/18 13:45 04/05/18 14:00 04/05/18 14:15 Temperature Pulse Rate 100 H 108 H 94 H Respiratory Rate 26 H 22 19 Blood Pressure 142/63 H 117/56 L 122/55 L Pulse Oximetry 95 96 96 04/05/18 14:30 04/05/18 14:39 04/05/18 14:45 Temperature Pulse Rate 97 H 98 H 100 H Respiratory Rate 30 H 23 26 H Blood Pressure 121/57 L 146/65 H Pulse Oximetry 94 L 95 04/05/18 15:00 04/05/18 15:11 04/05/18 15:31 Temperature Pulse Rate 98 H 104 H Respiratory Rate 24 27 H 25 H Blood Pressure 115/54 L 149/66 H Pulse Oximetry 95 96 98 04/05/18 16:00 04/05/18 16:04 04/05/18 16:15 Temperature Pulse Rate 108 H 102 H 105 H Respiratory Rate 22 22 24 Blood Pressure 131/62 135/58 L Pulse Oximetry 98 96 95 04/05/18 16:30 04/05/18 16:45 04/05/18 17:00 Temperature Pulse Rate 106 H 108 H 108 H Respiratory Rate 26 H 28 H 28 H Blood Pressure 106/57 L 105/55 L 104/57 L Pulse Oximetry 95 94 L 94 L 04/05/18 18:00 04/05/18 20:00 04/05/18 20:32 Temperature 98.8 F Pulse Rate 108 H 163 H 100 H Respiratory Rate 16 16 Blood Pressure 85/48 L Pulse Oximetry 96 99 04/05/18 22:00 04/06/18 00:00 04/06/18 01:33 Temperature 98.0 F Pulse Rate 97 H 79 Respiratory Rate 16 16 Blood Pressure 128/60 Pulse Oximetry 100 100 04/06/18 02:00 04/06/18 03:51 04/06/18 04:00 Temperature 98.6 F Pulse Rate 80 82 84 Respiratory Rate 16 16 Blood Pressure 162/70 H Pulse Oximetry 04/06/18 04:36 04/06/18 06:00 Temperature Pulse Rate 97 H Respiratory Rate 16 Blood Pressure Pulse Oximetry 100 Intake & Output 04/05/18 04/06/18 04/06/18 18:59 06:59 18:59 Intake Total 622 / 622 550 / 550 Output Total 800 / 800 450 / 450 Balance -178 / -178 100 / 100 Intake: IV 100 / 100 Diprivan 1000 mg/100 ml Inj 1, 100 / 100 000 mg In 100 ml @ 5 MCG/KG/MIN 2.994 mls/hr IV.CONT TITRATE PRN Rx#:[id number] Oral 0 / 0 Tube Feeding 402 / 402 550 / 550 Tube Irrigant 120 / 120 Output: Stool 0 / 0 Urine/Stool Mix 0 / 0 Urine Amount (Catheter) 800 / 800 450 / 450 Indwelling Urethral Catheter 800 / 800 450 / 450 Other: Date of Last Bowel Movement 04/01/18 04/01/18 # Bowel Movements 0 # Incontinent Bowel Movements 0 Result Diagrams: 04/06/18 04:42 04/06/18 04:42 Objective Remarks: GENERAL: Obese elderly female, lying in bed, intubated, encephalopathy HEENT: Normocephalic. Atraumatic. Pupils equal, round, reactive, conjugate. Orotracheally intubated NECK: Trachea is midline. Positive JVD up to the mid neck CHEST: Equal chest rise. PRVC mode of ventilation. Basilar crackles CARDIOVASCULAR: Currently in atrial fibrillation with RVR. Heart rate in 150s ABDOMEN: Obese, soft, nontender, nondistended. No guarding. MUSCULOSKELETAL: Pulses 2+. No peripheral edema. NEUROLOGICAL: Partial eye opening no response to voice do not follow commands. Withdraws to pain. Moves extremities spontaneously Assessment and Plan - Assessment and Plan Plan: Assessment: 77-year-old female with acute diastolic heart failure exacerbation with concomitant acute non-ST elevation myocardial infarction, most likely type II secondary to demand ischemia and hypertensive emergency, but possibly type I. Remains critically ill with minimal improvements in the last 24 hours. NEURO: Acute metabolic encephalopathy Remains off sedation but remains encephalopathy. Off propofol Lortab as needed for pain. Fentanyl as needed for breakthrough pain. RESP: Acute hypoxemic respiratory failure Prior tobacco abuse PRVC. Ventilator bundle. Wean FiO2 for sats greater than 90%. CPAP trial failed due to hypoxia and mental status CV: Acute severe pulmonary edema -improving Hypertensive emergency Atrial fibrillation with rapid ventricular response, new onset Acute non-ST elevation myocardial infarction, likely type II History of coronary artery disease with prior stent 2003 Hyperlipidemia Acute diastolic heart failure exacerbation Heart rate did not respond to IV metoprolol, started on Cardizem 50 mg IV push and then infusion-titrate to keep heart rate less than 110 Serial troponins, EKG, 2D Echo normal LVEF Continue forced diuresis, increased Lasix to 40 mg IV every 12 on 04/04. Started on hemodialysis yesterday 04/05/2018 Continues to be too bradycardic for beta-blockers Norvasc 10 mg daily. No LIZ inhibitor at this time due to kidney injury Previously intolerant to statin. ASA 81 daily. Off Heparin drip GI: Obesity OGT in place. tube feeds FEN/RENAL: Acute on chronic kidney disease. Acuity of this is unknown. Most recent available creatinine was 0.9 06/2009. Creat 3.2 -Nephrology following, started HD 04/05/18, 11.25L removed Frenando is in place. Daily BMP Hyperkalemiaresolved Trend on BMP ID: Afebrile. Seems much less likely to be of infectious etiology at this point so we will monitor off antibiotics. No significant secretions with suctioning. monitor. HEME: Monitor CBC ENDO: Diabetes mellitus Monitor bedside glucose every 6 hours and administer medium dose sliding scale as indicated. PROPH: SCDs and sq heparin for DVT prophylaxis. Famotidine IV for stress ulcer prophylaxis. ACCESS: PIV providing adequate access at this time This patient remains critically ill with one or more organ systems which are or may become a threat to life. I have spent in excess of 32 minutes discontinuously in the care and management of this patient. This time is exclusive of procedures, and includes, but is not limited to, evaluation of the patient, review of the medical record, discussions with family, consultants, nursing staff, or respiratory therapy, and documentation in the medical record.
--- NOTE | 2018-04-06 10:32 | P.PNPAL ---
Met with Family, 2 of 3 of pt's children. Family wants hospice, considering withdrawal as soon as their brother gets out of surgery in the next 5 hours. Hospice consult is pending.
[2018-04-06] MEDS: amLODIPine 5 MG Tablet NG/OG SCH (10:36)
[2018-04-06] MEDS: Senna/Docusate Sodium 8.6/50 MG Tablet PO SCH ×2 (10:37→20:32)
[2018-04-06] MEDS: Famotidine PF Inj 20 MG/2 ML Vial IV.PUSH SCH ×2 (10:37→20:32)
[2018-04-06] MEDS: Chlorhexidine 0.12% Oral Kit 15 ML UDC OROPHARYNG SCH ×2 (10:37→20:31)
--- NOTE | 2018-04-06 10:38 | P.PNCA ---
Subjective Interval history: Patient still intubated and sedated at this time. Patient in no acute distress at this time. Family at bedside. Physical Exam Vital signs: Vital Signs 04/05/18 10:45 04/05/18 11:00 04/05/18 11:15 Temperature Pulse Rate 96 H 99 H 102 H Respiratory Rate 28 H 27 H 27 H Blood Pressure 142/67 H 146/65 H 122/59 L Pulse Oximetry 95 95 94 L 04/05/18 11:30 04/05/18 11:45 04/05/18 11:53 Temperature Pulse Rate 104 H 104 H Respiratory Rate 29 H 29 H 25 H Blood Pressure 138/63 130/61 Pulse Oximetry 94 L 94 L 94 L 04/05/18 12:00 04/05/18 12:15 04/05/18 12:30 Temperature Pulse Rate 105 H 117 H 123 H Respiratory Rate 28 H 30 H 30 H Blood Pressure 150/65 H 148/67 H 154/63 H Pulse Oximetry 95 95 95 04/05/18 12:45 04/05/18 13:00 04/05/18 13:15 Temperature Pulse Rate 109 H 106 H 112 H Respiratory Rate 27 H 26 H 26 H Blood Pressure 161/69 H 144/67 H 142/59 H Pulse Oximetry 94 L 94 L 95 04/05/18 13:30 04/05/18 13:45 04/05/18 14:00 Temperature Pulse Rate 105 H 100 H 108 H Respiratory Rate 25 H 26 H 22 Blood Pressure 149/63 H 142/63 H 117/56 L Pulse Oximetry 95 95 96 04/05/18 14:15 04/05/18 14:30 04/05/18 14:39 Temperature Pulse Rate 94 H 97 H 98 H Respiratory Rate 19 30 H 23 Blood Pressure 122/55 L 121/57 L Pulse Oximetry 96 94 L 04/05/18 14:45 04/05/18 15:00 04/05/18 15:11 Temperature Pulse Rate 100 H 98 H 104 H Respiratory Rate 26 H 24 27 H Blood Pressure 146/65 H 115/54 L 149/66 H Pulse Oximetry 95 95 96 04/05/18 15:31 04/05/18 16:00 04/05/18 16:04 Temperature Pulse Rate 108 H 102 H Respiratory Rate 25 H 22 22 Blood Pressure 131/62 Pulse Oximetry 98 98 96 04/05/18 16:15 08/28/18 16:30 04/05/18 16:45 Temperature Pulse Rate 105 H 106 H 108 H Respiratory Rate 24 26 H 28 H Blood Pressure 135/58 L 106/57 L 105/55 L Pulse Oximetry 95 95 94 L 04/05/18 17:00 04/05/18 18:00 04/05/18 20:00 Temperature 98.8 F Pulse Rate 108 H 108 H 163 H Respiratory Rate 28 H 16 Blood Pressure 104/57 L 85/48 L Pulse Oximetry 94 L 96 04/05/18 20:32 04/05/18 22:00 04/06/18 00:00 Temperature 98.0 F Pulse Rate 100 H 97 H 79 Respiratory Rate 16 16 Blood Pressure 128/60 Pulse Oximetry 99 100 04/06/18 01:33 04/06/18 02:00 04/06/18 03:51 Temperature Pulse Rate 80 82 Respiratory Rate 16 16 Blood Pressure Pulse Oximetry 100 04/06/18 04:00 04/06/18 04:36 04/06/18 06:00 Temperature 98.6 F Pulse Rate 84 97 H Respiratory Rate 16 16 Blood Pressure 162/70 H Pulse Oximetry 100 04/06/18 09:55 Temperature Pulse Rate 77 Respiratory Rate 16 Blood Pressure Pulse Oximetry 96 Intake & Output 04/05/18 04/06/18 04/06/18 18:59 06:59 18:59 Intake Total 622 / 622 550 / 550 Output Total 800 / 800 450 / 450 Balance -178 / -178 100 / 100 Intake: IV 100 / 100 Diprivan 1000 mg/100 ml Inj 1, 100 / 100 000 mg In 100 ml @ 5 MCG/KG/MIN 2.994 mls/hr IV.CONT TITRATE PRN Rx#:[id number] Oral 0 / 0 Tube Feeding 402 / 402 550 / 550 Tube Irrigant 120 / 120 Output: Stool 0 / 0 Urine/Stool Mix 0 / 0 Urine Amount (Catheter) 800 / 800 450 / 450 Indwelling Urethral Catheter 800 / 800 450 / 450 Other: Date of Last Bowel Movement 04/01/18 04/01/18 # Bowel Movements 0 # Incontinent Bowel Movements 0 - Constitutional no acute distress - Routine HEENT Exam Head: Present: normocephalic Eye: Present: PERRL ENT: Present: mucous membranes dry - Routine Respiratory Exam Present: patient mechanically ventilated, decreased breath sounds - Routine Cardiovascular Exam Present: S1, S2. Absent: murmur, gallop, rubs - Routine Abdominal Exam Present: normoactive bowel sounds - Routine Extremities Exam Present: edema, pulses intact, normal capillary refill. Absent: cyanosis, clubbing - Routine Skin Exam Present: intact - Routine Neurological Exam Patient does not respond to commands. Patient will briefly open eyes to voice. - Detailed Neurological Exam: Coma Scale Eye Opening: To sound Verbal Response: None Motor Response: None [place] Coma Scale Total: 5 - Routine Psychiatric Exam Present: unable to assess - Urinary Catheter Management Indwelling Urethral Catheter Cath placed during this visit: yes Reason for continuing: Acute urinary retention Insertion date: 04/01/18 Insertion time: 21:18 Assessment and Plan - Assessment (1) NSTEMI (non-ST elevated myocardial infarction) Code(s): I21.4 - Non-ST elevation (NSTEMI) myocardial infarction Status: Acute (2) Chronic kidney disease, stage 4, severely decreased GFR Code(s): N18.4 - Chronic kidney disease, stage 4 (severe) Status: Acute (3) Congestive heart failure Code(s): I50.9 - Heart failure, unspecified Status: Acute (4) Respiratory failure Code(s): J96.90 - Respiratory failure, unspecified, unspecified whether with hypoxia or hypercapnia Status: Acute (5) Hypertension Code(s): I10 - Essential (primary) hypertension Status: Acute (6) Diabetes Code(s): E11.9 - Type 2 diabetes mellitus without complications Status: Acute - Plan Nitro gtt for hypertension. Patient was placed on a cardizem gtt after dialysis due to becoming severely tachy. SR-atrial fib, controlled rate at this time. Continue cardizem gtt. 2D echo shows an EF of 55-60% with trace to mild mitral valve regurgitation and trace tricuspid valve regurgitation. She is currently not a candidate for cardiac catheterization due to significant renal insufficiency and high risk of contrast nephropathy and the need for permanent dialysis. Discussed with family at bed side. Nephrology evaluation in progress. Patient received dialysis yesterday, 4.5L removed. Palliative care evaluation in progress, agree with current plan. Continue with current cardiac treatment plan. Discussed plan with family. The patient was seen and evaluated by Dr. Caba who participated in care, management and decision making. - Attending Attestation Patient seen and examined. I reviewed and agree with the evaluation and plan as presented. Recommend comfort care. D/w pt's family.
[2018-04-06] MEDS: Propofol 1000 mg/100 ml Inj 1,000 MG/100 ML BOTTLE IV.CONT PRN ×2 (10:45→18:10)
--- NOTE | 2018-04-06 12:25 | P.PNPAL ---
Reason for Visit Reason for visit: a. To assist with evaluation and management of symptoms including: pain, dyspnea b. To assist medical decision maker(s) with: better understanding of current medical conditions; weighing benefits/burdens of medical treatment options; making medical treatment decisions. Subjective Subjective/Interval History: Pt intubated on vent,propofol infusing 17.96ml/hr. She does partially open eyes to name. She is unable to quantify or qualify any feelings of pain or SOB but she appears comfortable. No sign agitation or grimacing. s/p vascath placement 04/05, had HD yesterday. This morning pt developed AF with RVR. Now on cardene gtt. Family/Friend Interactions: met with 2 of 3 children in consult room. They no longer want pt to have dialysis, they are requesting consult services and considering compassionate withdrawal. "We don't want to torture her anymore." They would like to wait on withdrawal till their brother gets out of surgery today. "We don't want him to wake up and find out mom ." They are conflicted b/c daughter Meliza told pt that they were going to let her go and reports that pt shook her head 'no.' But they feel they are prolonging her suffering. They do both agree that they not want to proceed with dialysis. Advance Directives Living Will: Copy in medical record Objective Vital Signs: Vital Signs 04/05/18 12:30 04/05/18 12:45 04/05/18 13:00 Temperature Pulse Rate 123 H 109 H 106 H Respiratory Rate 30 H 27 H 26 H Blood Pressure 154/63 H 161/69 H 144/67 H Pulse Oximetry 95 94 L 94 L 04/05/18 13:15 04/05/18 13:30 04/05/18 13:45 Temperature Pulse Rate 112 H 105 H 100 H Respiratory Rate 26 H 25 H 26 H Blood Pressure 142/59 H 149/63 H 142/63 H Pulse Oximetry 95 95 95 04/05/18 14:00 04/05/18 14:15 04/05/18 14:30 Temperature Pulse Rate 108 H 94 H 97 H Respiratory Rate 22 19 30 H Blood Pressure 117/56 L 122/55 L 121/57 L Pulse Oximetry 96 96 94 L 04/05/18 14:39 04/05/18 14:45 04/05/18 15:00 Temperature Pulse Rate 98 H 100 H 98 H Respiratory Rate 23 26 H 24 Blood Pressure 146/65 H 115/54 L Pulse Oximetry 95 95 04/05/18 15:11 04/05/18 15:31 04/05/18 16:00 Temperature Pulse Rate 104 H 108 H Respiratory Rate 27 H 25 H 22 Blood Pressure 149/66 H Pulse Oximetry 96 98 98 04/05/18 16:04 04/05/18 16:15 04/05/18 16:30 Temperature Pulse Rate 102 H 105 H 106 H Respiratory Rate 22 24 26 H Blood Pressure 131/62 135/58 L 106/57 L Pulse Oximetry 96 95 95 04/05/18 16:45 04/05/18 17:00 04/05/18 18:00 Temperature Pulse Rate 108 H 108 H 108 H Respiratory Rate 28 H 28 H Blood Pressure 105/55 L 104/57 L Pulse Oximetry 94 L 94 L 04/05/18 20:00 04/05/18 20:32 04/05/18 22:00 Temperature 98.8 F Pulse Rate 163 H 100 H 97 H Respiratory Rate 16 16 Blood Pressure 85/48 L Pulse Oximetry 96 99 04/06/18 00:00 04/06/18 01:33 04/06/18 02:00 Temperature 98.0 F Pulse Rate 79 80 Respiratory Rate 16 16 Blood Pressure 128/60 Pulse Oximetry 100 100 04/06/18 03:51 04/06/18 04:00 04/06/18 04:36 Temperature 98.6 F Pulse Rate 82 84 Respiratory Rate 16 16 16 Blood Pressure 162/70 H Pulse Oximetry 100 04/06/18 06:00 04/06/18 08:00 04/06/18 08:40 Temperature Pulse Rate 97 H 77 78 Respiratory Rate 16 Blood Pressure 130/60 Pulse Oximetry 96 04/06/18 08:45 04/06/18 08:50 04/06/18 08:55 Temperature Pulse Rate 79 79 78 Respiratory Rate 16 16 16 Blood Pressure 129/60 135/62 131/60 Pulse Oximetry 96 96 96 04/06/18 09:00 04/06/18 09:05 04/06/18 09:10 Temperature Pulse Rate 78 77 78 Respiratory Rate 16 16 16 Blood Pressure 130/59 L 127/57 L 119/59 L Pulse Oximetry 96 95 95 04/06/18 09:15 04/06/18 09:20 04/06/18 09:25 Temperature Pulse Rate 78 78 77 Respiratory Rate 16 16 16 Blood Pressure 125/57 L 122/58 L 126/59 L Pulse Oximetry 95 95 95 04/06/18 09:30 04/06/18 09:35 04/06/18 09:40 Temperature Pulse Rate 77 77 77 Respiratory Rate 16 16 16 Blood Pressure 122/57 L 130/63 131/60 Pulse Oximetry 95 95 95 04/06/18 09:45 04/06/18 09:50 04/06/18 09:55 Temperature Pulse Rate 79 79 79 Respiratory Rate 16 16 16 Blood Pressure 130/60 127/60 129/62 Pulse Oximetry 95 95 95 04/06/18 10:00 04/06/18 10:05 04/06/18 10:10 Temperature Pulse Rate 80 78 78 Respiratory Rate 16 16 16 Blood Pressure 140/64 141/56 H 134/59 L Pulse Oximetry 99 95 95 04/06/18 10:15 04/06/18 10:20 04/06/18 10:25 Temperature Pulse Rate 79 78 79 Respiratory Rate 16 16 16 Blood Pressure 132/59 L 128/59 L 138/61 Pulse Oximetry 95 95 95 04/06/18 10:30 04/06/18 10:36 04/06/18 10:40 Temperature Pulse Rate 81 92 H 85 Respiratory Rate 17 18 16 Blood Pressure 130/60 202/83 H 156/69 H Pulse Oximetry 95 96 96 Intake & Output 04/05/18 04/06/18 04/06/18 18:59 06:59 18:59 Intake Total 622 / 622 550 / 550 100 / 100 Output Total 800 / 800 450 / 450 Balance -178 / -178 100 / 100 100 / 100 Intake: IV 100 / 100 100 / 100 Diprivan 1000 mg/100 ml Inj 1, 100 / 100 100 / 100 000 mg In 100 ml @ 5 MCG/KG/MIN 2.994 mls/hr IV.CONT TITRATE PRN Rx#:[id number] Oral 0 / 0 Tube Feeding 402 / 402 550 / 550 Tube Irrigant 120 / 120 Output: Stool 0 / 0 Urine/Stool Mix 0 / 0 Urine Amount (Catheter) 800 / 800 450 / 450 Indwelling Urethral Catheter 800 / 800 450 / 450 Other: Date of Last Bowel Movement 04/01/18 04/01/18 04/01/18 # Bowel Movements 0 # Incontinent Bowel Movements 0 Physical Exam: CONSTITUTIONAL/GENERAL: This is an adequately nourished patient, sedated on vent TUBES/LINES/DRAINS: OETT, OGT, lerner SKIN: pale. No jaundice, rashes, or lesions. BUE ecchymoses. No wounds seen anteriorly. HEAD: Atraumatic. Normocephalic. EYES: No scleral icterus. No injection or drainage. Fundi not examined. ENT: Hearing grossly normal. Nose without bleeding or purulent drainage. Throat exam limited by ET tube CARDIOVASCULAR: irr HR, tachycardic Peripheral pulses symmetric. RESPIRATORY/CHEST: Symmetric, unlabored respirations. coarse. Breath sounds equal bilaterally. GASTROINTESTINAL: Abdomen soft, nondistended. No hepato-splenomegaly, or palpable masses. GENITOURINARY: Without palpable bladder distension. Lerner catheter in place. MUSCULOSKELETAL: sedated on vent Extremities without clubbing, cyanosis. + BUE edema No mottling or clubbing. NEUROLOGICAL: sedated on vent. minimal response to name being called. lethargic. Diagnostic Tests Laboratory: Laboratory Results - last 72 hr 04/03/18 04/03/18 04/03/18 12:37 15:39 16:15 WBC RBC Hgb Hct MCV MCH MCHC RDW Plt Count MPV Neut % (Auto) Lymph % (Auto) Luce % (Auto) Eos % (Auto) Baso % (Auto) Neut # (Auto) Lymph # (Auto) Luce # (Auto) Eos # (Auto) Baso # (Auto) WBC Differential Differential Comment PT INR APTT Fibrinogen Puncture Site Patient Temperature O2 Saturation ABG pH ABG pCO2 ABG pO2 ABG HCO3 ABG O2 Content ABG Base Excess ABG Methemoglobin Durga Test Hemoglobin Carboxyhemoglobin O2 Delivery Device Vent Setting Inspired O2 Critical Value Sodium Potassium Chloride Carbon Dioxide Anion Gap BUN Creatinine Estimated GFR POC Glucose 217 H 220 H Random Glucose Calcium Total Bilirubin AST ALT Alkaline Phosphatase Troponin I 2.44 H* D Total Protein Albumin Hepatitis A IgM Ab Hep Bs Antigen Hep B Core IgM Ab Hep C IgG Ab 04/03/18 04/03/18 04/04/18 21:16 23:38 03:31 WBC RBC Hgb Hct MCV MCH MCHC RDW Plt Count MPV Neut % (Auto) Lymph % (Auto) Luce % (Auto) Eos % (Auto) Baso % (Auto) Neut # (Auto) Lymph # (Auto) Luce # (Auto) Eos # (Auto) Baso # (Auto) WBC Differential Differential Comment PT INR APTT 49.3 H Fibrinogen Puncture Site Patient Temperature O2 Saturation ABG pH ABG pCO2 ABG pO2 ABG HCO3 ABG O2 Content ABG Base Excess ABG Methemoglobin Durga Test Hemoglobin Carboxyhemoglobin O2 Delivery Device Vent Setting Inspired O2 Critical Value Sodium Potassium Chloride Carbon Dioxide Anion Gap BUN Creatinine Estimated GFR POC Glucose 289 H 315 H Random Glucose Calcium Total Bilirubin AST ALT Alkaline Phosphatase Troponin I Total Protein Albumin Hepatitis A IgM Ab Hep Bs Antigen Hep B Core IgM Ab Hep C IgG Ab 04/04/18 04/04/18 04/04/18 03:31 03:31 03:31 WBC 11.1 H RBC 3.30 L Hgb 8.9 L Hct 28.1 L MCV 85.1 MCH 27.1 MCHC 31.8 L RDW 15.6 Plt Count 214 MPV 11.2 H Neut % (Auto) 82.2 H Lymph % (Auto) 8.7 L Luce % (Auto) 6.7 Eos % (Auto) 1.7 Baso % (Auto) 0.7 Neut # (Auto) 9.1 H Lymph # (Auto) 1.0 Luce # (Auto) 0.7 Eos # (Auto) 0.2 Baso # (Auto) 0.1 WBC Differential . Differential Comment Auto diff final PT 10.6 INR 1.0 APTT Fibrinogen 657 H Puncture Site Patient Temperature O2 Saturation ABG pH ABG pCO2 ABG pO2 ABG HCO3 ABG O2 Content ABG Base Excess ABG Methemoglobin Durga Test Hemoglobin Carboxyhemoglobin O2 Delivery Device Vent Setting Inspired O2 Critical Value Sodium 138 Potassium 4.2 Chloride 99 Carbon Dioxide 25.2 Anion Gap 14 BUN 63 H Creatinine 3.21 H Estimated GFR 14 L POC Glucose Random Glucose 252 H Calcium 8.0 L Total Bilirubin AST ALT Alkaline Phosphatase Troponin I Total Protein Albumin Hepatitis A IgM Ab Hep Bs Antigen Hep B Core IgM Ab Hep C IgG Ab 04/04/18 04/04/18 04/04/18 03:36 08:51 11:37 WBC RBC Hgb Hct MCV MCH MCHC RDW Plt Count MPV Neut % (Auto) Lymph % (Auto) Luce % (Auto) Eos % (Auto) Baso % (Auto) Neut # (Auto) Lymph # (Auto) Luce # (Auto) Eos # (Auto) Baso # (Auto) WBC Differential Differential Comment PT INR APTT Fibrinogen Puncture Site Patient Temperature O2 Saturation ABG pH ABG pCO2 ABG pO2 ABG HCO3 ABG O2 Content ABG Base Excess ABG Methemoglobin Durga Test Hemoglobin Carboxyhemoglobin O2 Delivery Device Vent Setting Inspired O2 Critical Value Sodium Potassium Chloride Carbon Dioxide Anion Gap BUN Creatinine Estimated GFR POC Glucose 291 H 214 H 237 H Random Glucose Calcium Total Bilirubin AST ALT Alkaline Phosphatase Troponin I Total Protein Albumin Hepatitis A IgM Ab Hep Bs Antigen Hep B Core IgM Ab Hep C IgG Ab 04/04/18 04/04/18 04/04/18 11:40 15:56 21:35 WBC RBC Hgb Hct MCV MCH MCHC RDW Plt Count MPV Neut % (Auto) Lymph % (Auto) Luce % (Auto) Eos % (Auto) Baso % (Auto) Neut # (Auto) Lymph # (Auto) Luce # (Auto) Eos # (Auto) Baso # (Auto) WBC Differential Differential Comment PT INR APTT Fibrinogen Puncture Site Right radial Patient Temperature 98.6 O2 Saturation 88 L* ABG pH 7.46 H ABG pCO2 35 L ABG pO2 62 ABG HCO3 25 ABG O2 Content 18.6 ABG Base Excess 1.4 ABG Methemoglobin 1.7 Durga Test Present Hemoglobin 15.0 Carboxyhemoglobin 0.8 O2 Delivery Device Ventilator Vent Setting Cpap5/ps 10 Inspired O2 35 Critical Value Yes Sodium Potassium Chloride Carbon Dioxide Anion Gap BUN Creatinine Estimated GFR POC Glucose 256 H 288 H Random Glucose Calcium Total Bilirubin AST ALT Alkaline Phosphatase Troponin I Total Protein Albumin Hepatitis A IgM Ab Hep Bs Antigen Hep B Core IgM Ab Hep C IgG Ab 04/05/18 04/05/18 04/05/18 01:13 05:54 07:00 WBC RBC Hgb Hct MCV MCH MCHC RDW Plt Count MPV Neut % (Auto) Lymph % (Auto) Luce % (Auto) Eos % (Auto) Baso % (Auto) Neut # (Auto) Lymph # (Auto) Luce # (Auto) Eos # (Auto) Baso # (Auto) WBC Differential Differential Comment PT INR APTT 22.9 L D Fibrinogen Puncture Site Patient Temperature O2 Saturation ABG pH ABG pCO2 ABG pO2 ABG HCO3 ABG O2 Content ABG Base Excess ABG Methemoglobin Durga Test Hemoglobin Carboxyhemoglobin O2 Delivery Device Vent Setting Inspired O2 Critical Value Sodium Potassium Chloride Carbon Dioxide Anion Gap BUN Creatinine Estimated GFR POC Glucose 293 H 246 H Random Glucose Calcium Total Bilirubin AST ALT Alkaline Phosphatase Troponin I Total Protein Albumin Hepatitis A IgM Ab Hep Bs Antigen Hep B Core IgM Ab Hep C IgG Ab 04/05/18 04/05/18 04/05/18 07:36 10:35 10:35 WBC 17.1 H RBC 3.38 L Hgb 9.3 L Hct 28.6 L MCV 84.6 MCH 27.4 MCHC 32.4 RDW 15.5 Plt Count 226 MPV 11.0 Neut % (Auto) 88.8 H Lymph % (Auto) 3.9 L Luce % (Auto) 5.7 Eos % (Auto) 1.2 Baso % (Auto) 0.4 Neut # (Auto) 15.2 H Lymph # (Auto) 0.7 L Luce # (Auto) 1.0 H Eos # (Auto) 0.2 Baso # (Auto) 0.1 WBC Differential . Differential Comment Auto diff final PT INR APTT Fibrinogen Puncture Site Patient Temperature O2 Saturation ABG pH ABG pCO2 ABG pO2 ABG HCO3 ABG O2 Content ABG Base Excess ABG Methemoglobin Durga Test Hemoglobin Carboxyhemoglobin O2 Delivery Device Vent Setting Inspired O2 Critical Value Sodium 136 Potassium 4.5 Chloride 97 L Carbon Dioxide 25.8 Anion Gap 13 BUN 69 H Creatinine 3.22 H Estimated GFR 14 L POC Glucose 244 H Random Glucose 274 H Calcium 7.8 L Total Bilirubin 0.5 AST 105 H ALT 37 Alkaline Phosphatase 109 Troponin I Total Protein 6.3 L D Albumin 2.0 L Hepatitis A IgM Ab Hep Bs Antigen Hep B Core IgM Ab Hep C IgG Ab 04/05/18 04/05/18 04/05/18 11:10 12:15 13:41 WBC RBC Hgb Hct MCV MCH MCHC RDW Plt Count MPV Neut % (Auto) Lymph % (Auto) Luce % (Auto) Eos % (Auto) Baso % (Auto) Neut # (Auto) Lymph # (Auto) Luce # (Auto) Eos # (Auto) Baso # (Auto) WBC Differential Differential Comment PT INR APTT Fibrinogen Puncture Site Right radial Patient Temperature 98.6 O2 Saturation 93 ABG pH 7.42 ABG pCO2 40 ABG pO2 81 ABG HCO3 25 ABG O2 Content 12.4 ABG Base Excess 1.1 ABG Methemoglobin 1.5 Durga Test Present Hemoglobin 9.4 L Carboxyhemoglobin 1.0 O2 Delivery Device Ventilator Vent Setting Cpap 5/5ps Inspired O2 35 Critical Value No Sodium Potassium Chloride Carbon Dioxide Anion Gap BUN Creatinine Estimated GFR POC Glucose 311 H Random Glucose Calcium Total Bilirubin AST ALT Alkaline Phosphatase Troponin I Total Protein Albumin Hepatitis A IgM Ab Nonreactive Hep Bs Antigen Nonreactive Hep B Core IgM Ab Nonreactive Hep C IgG Ab Nonreactive 04/05/18 04/05/18 04/06/18 17:16 21:01 04:42 WBC 11.3 H RBC 3.39 L Hgb 9.3 L Hct 29.2 L MCV 86.0 MCH 27.4 MCHC 31.8 L RDW 15.8 Plt Count 228 MPV 10.9 Neut % (Auto) Lymph % (Auto) Luce % (Auto) Eos % (Auto) Baso % (Auto) Neut # (Auto) Lymph # (Auto) Luce # (Auto) Eos # (Auto) Baso # (Auto) WBC Differential Differential Comment PT INR APTT Fibrinogen Puncture Site Patient Temperature O2 Saturation ABG pH ABG pCO2 ABG pO2 ABG HCO3 ABG O2 Content ABG Base Excess ABG Methemoglobin Durga Test Hemoglobin Carboxyhemoglobin O2 Delivery Device Vent Setting Inspired O2 Critical Value Sodium Potassium Chloride Carbon Dioxide Anion Gap BUN Creatinine Estimated GFR POC Glucose 179 H 291 H Random Glucose Calcium Total Bilirubin AST ALT Alkaline Phosphatase Troponin I Total Protein Albumin Hepatitis A IgM Ab Hep Bs Antigen Hep B Core IgM Ab Hep C IgG Ab 04/06/18 04/06/18 04/06/18 04:42 04:42 05:23 WBC RBC Hgb Hct MCV MCH MCHC RDW Plt Count MPV Neut % (Auto) Lymph % (Auto) Luce % (Auto) Eos % (Auto) Baso % (Auto) Neut # (Auto) Lymph # (Auto) Luce # (Auto) Eos # (Auto) Baso # (Auto) WBC Differential Differential Comment PT INR APTT 25.2 Fibrinogen Puncture Site Patient Temperature O2 Saturation ABG pH ABG pCO2 ABG pO2 ABG HCO3 ABG O2 Content ABG Base Excess ABG Methemoglobin Durga Test Hemoglobin Carboxyhemoglobin O2 Delivery Device Vent Setting Inspired O2 Critical Value Sodium 141 Potassium 4.1 Chloride 102 Carbon Dioxide 26.7 Anion Gap 12 BUN 60 H Creatinine 2.60 H Estimated GFR 18 L POC Glucose 353 H Random Glucose 339 H Calcium 8.0 L Total Bilirubin 0.4 AST 93 H ALT 47 Alkaline Phosphatase 134 H Troponin I Total Protein 6.3 L Albumin 1.8 L Hepatitis A IgM Ab Hep Bs Antigen Hep B Core IgM Ab Hep C IgG Ab 04/06/18 10:40 WBC RBC Hgb Hct MCV MCH MCHC RDW Plt Count MPV Neut % (Auto) Lymph % (Auto) Luce % (Auto) Eos % (Auto) Baso % (Auto) Neut # (Auto) Lymph # (Auto) Luce # (Auto) Eos # (Auto) Baso # (Auto) WBC Differential Differential Comment PT INR APTT Fibrinogen Puncture Site Patient Temperature O2 Saturation ABG pH ABG pCO2 ABG pO2 ABG HCO3 ABG O2 Content ABG Base Excess ABG Methemoglobin Durga Test Hemoglobin Carboxyhemoglobin O2 Delivery Device Vent Setting Inspired O2 Critical Value Sodium Potassium Chloride Carbon Dioxide Anion Gap BUN Creatinine Estimated GFR POC Glucose 365 H Random Glucose Calcium Total Bilirubin AST ALT Alkaline Phosphatase Troponin I Total Protein Albumin Hepatitis A IgM Ab Hep Bs Antigen Hep B Core IgM Ab Hep C IgG Ab Result Diagrams: 04/06/18 04:42 04/06/18 04:42 Microbiology: Microbiology 04/01/18 21:20 Aerobic Blood Culture - Final Blood - Peripheral No growth in 5 days Anaerobic Blood Culture - Final No growth in 5 days 04/01/18 21:15 Aerobic Blood Culture - Final Blood - Peripheral No growth in 5 days Anaerobic Blood Culture - Final No growth in 5 days 04/03/18 12:30 Gram Stain - Final Sputum - Endotracheal Sputum Culture - Final Procedures: 04/05 [facility] Assessment and Plan - Disease Oriented Problem List (1) Chronic kidney disease, stage 4, severely decreased GFR (2) Congestive heart failure (3) Respiratory failure (4) Hypertension (5) Diabetes (6) NSTEMI (non-ST elevated myocardial infarction) - Symptom Scale (1) Dyspnea 0-10 Scale: Unable to quantify (2) Pain 0-10 Scale: Unable to quantify Pertinent Non-Medical Issues: Psychosocial: Pt originally from [place], then moved to [place]. Has divided her time between [place] and [place] over the last 10 years. Recently living with Daughter who is local. 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 . Has 3 children. Spiritual: Mandaeism. Familly requests pastoral care Legal: Pt not capacitated to make decisions. In absence of designated HCS medical decision makin falls to the majority of pt's 3 children. Family appears to be working together. Ethical issues impacting care: Important Contacts: Meliza Murrell [phone] cell [phone] brother in [place] Jorje [phone] Prognosis: 77 yo female, with CKD 4, type 2 DM noncompliant with insulin, admitted 04/01 with chest pain, SOB. Found to have NSTEMI. Cardiology not wanting to do cath procedure, recommending medical mgmt including anticoagulation but this is held currently 2/2 hypopharyngeal bleeding from intubaiton injury. nephrology recommending dialysis. Pt with worsening kidney function. Failed initial spontaneous breathing trials 2/2 agitation, mental status. Prognosis w/o dialysis extremely poor. Even with dialysis pt not likely to return to baseline. Code Status: Alternative Code (intubation only) Plan: - LEGAL DECISON MAKER -patient not capacitated to make medical decisions. In the absence of designated healthcare surrogate, per [place] statutes proxy decision-making falls to majority of 3 children. Family appears to be working together. - CODE STATUS- alt code intubation only; reaffirmed 04/06 - GOALS - Comfort oriented. They no longer want pt to have dialysis, they are requesting consult services and considering compassionate withdrawal. "We don' t want to torture her anymore." They would like to wait on withdrawal till their brother gets out of surgery today. "We don't want him to wake up and find out mom ." They are conflicted b/c daughter Meliza told pt that they were going to let her go and reports that pt shook her head 'no.' But they feel they are prolonging her suffering. They do both agree that they not want to proceed with dialysis. - SYMPTOMS - * pain - multifactorial, acute and chronic. at time of admission had chest pain. pt had sciatica, had just had injection. pt also had neuropathy per family. unable to quantify or qualify pain. on my eval she appears comfortable , no grimacing. Stopover 5/325 q4h prn, had yesterday 1825 * dyspnea - had SOB prior to arrival. increasing activity intolerance over last few weeks. intubated prior to arrival. Found to have NSTEMI. cardiology recommending medical mgmt, no cath. tolerated cpap yesterday. has JANES simental - d/w RN - hospice consult appreciated - will see tomorrow - Palliative care will continue to follow during hospital course as condition evolves, to assist patient/decision-maker with understanding of medical conditions, weighing benefits/burdens of treatment options, for clarification of goals of treatment. Additionally will assist with any symptoms of palliative concern Attestation Attestation: To help prompt me to consider important information that might be impacting today's encounter and assessment, information from prior notes written by myself or my colleagues may have been "brought forward" into today's note. My signature on this note, however, is an attestation that I personally performed the exam, history, and/or decision-making noted today, and, unless otherwise indicated, the interactions with patient, family, and staff as well as the review of records all occurred today. I also attest that the listed assessment and stated plan reflect my best clinical judgment today based on the combination of historical information, prior notes, and today's exam/ interactions. When time spent is documented, it refers only to time spent today by the signer, or if indicated, combined time spent today by collaborating physician/nurse practitioner.
--- NOTE | 2018-04-06 15:04 | P.PNNP ---
Subjective Interval history: Patient is on the vent, had dialysis yesterday 1.5 L off overnight did not do well blood pressure was low Physical Exam Vital signs: Vital Signs 04/05/18 15:11 04/05/18 15:31 04/05/18 16:00 Temperature Pulse Rate 104 H 108 H Respiratory Rate 27 H 25 H 22 Blood Pressure 149/66 H Pulse Oximetry 96 98 98 04/05/18 16:04 04/05/18 16:15 04/05/18 16:30 Temperature Pulse Rate 102 H 105 H 106 H Respiratory Rate 22 24 26 H Blood Pressure 131/62 135/58 L 106/57 L Pulse Oximetry 96 95 95 04/05/18 16:45 04/05/18 17:00 04/05/18 18:00 Temperature Pulse Rate 108 H 108 H 108 H Respiratory Rate 28 H 28 H Blood Pressure 105/55 L 104/57 L Pulse Oximetry 94 L 94 L 04/05/18 20:00 04/05/18 20:32 04/05/18 22:00 Temperature 98.8 F Pulse Rate 163 H 100 H 97 H Respiratory Rate 16 16 Blood Pressure 85/48 L Pulse Oximetry 96 99 04/06/18 00:00 04/06/18 01:33 04/06/18 02:00 Temperature 98.0 F Pulse Rate 79 80 Respiratory Rate 16 16 Blood Pressure 128/60 Pulse Oximetry 100 100 04/06/18 03:51 04/06/18 04:00 04/06/18 04:36 Temperature 98.6 F Pulse Rate 82 84 Respiratory Rate 16 16 16 Blood Pressure 162/70 H Pulse Oximetry 100 04/06/18 06:00 04/06/18 08:00 04/06/18 08:40 Temperature Pulse Rate 97 H 77 78 Respiratory Rate 16 Blood Pressure 130/60 Pulse Oximetry 96 04/06/18 08:45 04/06/18 08:50 04/06/18 08:55 Temperature Pulse Rate 79 79 78 Respiratory Rate 16 16 16 Blood Pressure 129/60 135/62 131/60 Pulse Oximetry 96 96 96 04/06/18 09:00 04/06/18 09:05 04/06/18 09:10 Temperature Pulse Rate 78 77 78 Respiratory Rate 16 16 16 Blood Pressure 130/59 L 127/57 L 119/59 L Pulse Oximetry 96 95 95 04/06/18 09:15 04/06/18 09:20 04/06/18 09:25 Temperature Pulse Rate 78 78 77 Respiratory Rate 16 16 16 Blood Pressure 125/57 L 122/58 L 126/59 L Pulse Oximetry 95 95 95 04/06/18 09:30 04/06/18 09:35 04/06/18 09:40 Temperature Pulse Rate 77 77 77 Respiratory Rate 16 16 16 Blood Pressure 122/57 L 130/63 131/60 Pulse Oximetry 95 95 95 04/06/18 09:45 04/06/18 09:50 04/06/18 09:55 Temperature Pulse Rate 79 79 79 Respiratory Rate 16 16 16 Blood Pressure 130/60 127/60 129/62 Pulse Oximetry 95 95 95 04/06/18 10:00 04/06/18 10:05 04/06/18 10:10 Temperature Pulse Rate 85 78 78 Respiratory Rate 16 16 16 Blood Pressure 140/64 141/56 H 134/59 L Pulse Oximetry 99 95 95 04/06/18 10:15 04/06/18 10:20 04/06/18 10:25 Temperature Pulse Rate 79 78 79 Respiratory Rate 16 16 16 Blood Pressure 132/59 L 128/59 L 138/61 Pulse Oximetry 95 95 95 04/06/18 10:30 04/06/18 10:36 04/06/18 10:40 Temperature Pulse Rate 81 92 H 85 Respiratory Rate 17 18 16 Blood Pressure 130/60 202/83 H 156/69 H Pulse Oximetry 95 96 96 04/06/18 12:43 Temperature Pulse Rate Respiratory Rate 16 Blood Pressure Pulse Oximetry 96 Intake & Output 04/05/18 04/06/18 04/06/18 18:59 06:59 18:59 Intake Total 622 / 622 550 / 550 100 / 100 Output Total 800 / 800 450 / 450 Balance -178 / -178 100 / 100 100 / 100 Intake: IV 100 / 100 100 / 100 Diprivan 1000 mg/100 ml Inj 1, 100 / 100 100 / 100 000 mg In 100 ml @ 5 MCG/KG/MIN 2.994 mls/hr IV.CONT TITRATE PRN Rx#:[id number] Oral 0 / 0 Tube Feeding 402 / 402 550 / 550 Tube Irrigant 120 / 120 Output: Stool 0 / 0 Urine/Stool Mix 0 / 0 Urine Amount (Catheter) 800 / 800 450 / 450 Indwelling Urethral Catheter 800 / 800 450 / 450 Other: Date of Last Bowel Movement 04/01/18 04/01/18 04/01/18 # Bowel Movements 0 # Incontinent Bowel Movements 0 - Constitutional no acute distress - Routine HEENT Exam Head: Present: normocephalic - Routine Neck Exam Present: supple - Routine Respiratory Exam Present: decreased breath sounds - Routine Cardiovascular Exam Present: S1, S2, irregularly irregular - Routine Abdominal Exam Present: soft, normoactive bowel sounds - Routine Extremities Exam Present: edema - Urinary Catheter Management Indwelling Urethral Catheter Cath placed during this visit: yes Reason for continuing: Acute urinary retention Insertion date: 04/01/18 Insertion time: 21:18 Assessment and Plan - Assessment (1) Chronic kidney disease, stage 4, severely decreased GFR Code(s): N18.4 - Chronic kidney disease, stage 4 (severe) Status: Acute (2) Congestive heart failure Code(s): I50.9 - Heart failure, unspecified Status: Acute (3) Respiratory failure Code(s): J96.90 - Respiratory failure, unspecified, unspecified whether with hypoxia or hypercapnia Status: Acute (4) Hypertension Code(s): I10 - Essential (primary) hypertension Status: Acute (5) Diabetes Code(s): E11.9 - Type 2 diabetes mellitus without complications Status: Acute - Plan Patient has advanced kidney failure in chronic kidney disease stage IV by history: Diuretic has been started with the results creatinine is declined after dialysis creatinine 2.6 Patient is critically ill, intubated family made aware that he wanted to cancel hemodialysis Palliative care by tomorrow Family at bedside
--- NOTE | 2018-04-06 21:13 | ECG ---
Date Performed: 04/06/2018 Time Performed: 07:22:35 PTAGE: 77 years EKG: ATRIAL FIBRILLATION WITH RAPID VENTRICULAR RESPONSE MARKED ST DEPRESSION, CONSIDER SUBENDO CARDIAL INJURY ABNORMAL ECG PREVIOUS TRACING : 04/02/2018 10.37 Compared to previous tracing, atrial fibrillation with rap id ventricular response is new DOCTOR: Buster House Interpretating Date/Time 04/06/2018 21:13:18
[2018-04-07] MEDS: dilTIAZem Inj 125 MG in Sodium Chlor 0.9% Inj 100 ML IV.CONT PRN (04:11)
[2018-04-07] MEDS: Insulin NovoLOG Aspart Correctional Sugar Inj SQ SCH ×5 (04:15→20:40)
[2018-04-07] MEDS: Nitroglycerin Drip Premix 50 MG/250 ML BOTTLE IV.CONT PRN (06:22)
[2018-04-07] MEDS: Oral Hygiene Kit OROPHARYNG SCH ×4 (06:27→17:52)
--- NOTE | 2018-04-07 08:03 | P.PNCC ---
Subjective Subjective Remarks/Hospital Course: Hospital Course: Unable to obtain history from patient due to intubation. History obtained from discussion with Dr. Eduardo and with review of medical records. 77-year-old female with past medical history of hypertension, hyperlipidemia, diabetes, coronary artery disease with prior stenting 2003, reported history of CHF (no prior echo here). [facility] was summoned due to respiratory distress. She was hypoxic at the scene despite nonrebreather. She was started on BiPAP but ultimately required intubation at the scene. Her BP was 260/180 and she had bilateral rales and reported increased pedal edema. She was given Lasix 100 mg IV. Upon arrival she was sedated with propofol. Chest x-ray showed pulmonary edema. She was started on a nitroglycerin drip. She has diuresed 800 mL's. Afebrile. Subjective: 04/03: remains intubated and sedated. agitated on sedation vacation, not following commands. yesterday placed on Aggrastat and heparin for ACS. trops stable at ~7. today, bleeding from the hypopharynx which was initially very active, and we held all anticoagulation. after this stopped, we restarted heparin alone. forced diuresis continues and patient has net negative balance with improving BNP. 04/04: Remains intubated sedated. UO 1L. creat 3.2. Receiving IV Lasix 40 mg every 24 hours. At this time family is contemplating on dialysis. Dr. kirby is not planning for cardiac catheterization at this time. Because of bleeding from hypopharynx from intubation injury, oral anticoagulation except heparin stopped 04/05: Remains intubated and had been off sedation for the last 4 hours very lethargic possibly opens eyes. Urine output improved with increased dose of Lasix almost 2 L in 24 hours. BUN 69 creatinine 3.2 remains stable. Because of overall poor prognosis Dr. kirby is not planning on cardiac catheterization 04/06: Start on hemodialysis yesterday after Vas-Cath was placed, about 1.25 L removed. Today morning patient developed A. fib with RVR heart rate in 150s. No response to 2.5 mg IV push of metoprolol. Started on Cardizem push IV 15 mg followed by infusion. Family updated about the condition. Patient's neuro status remains poor 04/07: Remains intubated mildly sedated with propofol. Eyes are wide open not following commands ago. Currently in sinus rhythm on Cardizem 15 mg/h. Start p.o. Cardizem and wean to DC IV Cardizem. Urine output 450 mL in 24 hours. Family refused hemodialysis yesterday. Probably wants to proceed with withdrawal but I will discuss with family to clarify goals of care today Objective Vital Signs / I&O: Vital Signs 04/06/18 08:40 04/06/18 08:45 04/06/18 08:50 Temperature Pulse Rate 78 79 79 Respiratory Rate 16 16 16 Blood Pressure 130/60 129/60 135/62 Pulse Oximetry 96 96 96 04/06/18 08:55 04/06/18 09:00 04/06/18 09:05 Temperature Pulse Rate 78 78 77 Respiratory Rate 16 16 16 Blood Pressure 131/60 130/59 L 127/57 L Pulse Oximetry 96 96 95 04/06/18 09:10 04/06/18 09:15 04/06/18 09:20 Temperature Pulse Rate 78 78 78 Respiratory Rate 16 16 16 Blood Pressure 119/59 L 125/57 L 122/58 L Pulse Oximetry 95 95 95 04/06/18 09:25 04/06/18 09:30 04/06/18 09:35 Temperature Pulse Rate 77 77 77 Respiratory Rate 16 16 16 Blood Pressure 126/59 L 122/57 L 130/63 Pulse Oximetry 95 95 95 04/06/18 09:40 04/06/18 09:45 04/06/18 09:50 Temperature Pulse Rate 77 79 79 Respiratory Rate 16 16 16 Blood Pressure 131/60 130/60 127/60 Pulse Oximetry 95 95 95 04/06/18 09:55 04/06/18 10:00 04/06/18 10:05 Temperature Pulse Rate 79 85 78 Respiratory Rate 16 16 16 Blood Pressure 129/62 140/64 141/56 H Pulse Oximetry 95 99 95 04/06/18 10:10 04/06/18 10:15 04/06/18 10:20 Temperature Pulse Rate 78 79 78 Respiratory Rate 16 16 16 Blood Pressure 134/59 L 132/59 L 128/59 L Pulse Oximetry 95 95 95 04/06/18 10:25 04/06/18 10:30 04/06/18 10:36 Temperature Pulse Rate 79 81 92 H Respiratory Rate 16 17 18 Blood Pressure 138/61 130/60 202/83 H Pulse Oximetry 95 95 96 04/06/18 10:40 04/06/18 12:00 04/06/18 12:43 Temperature Pulse Rate 85 82 Respiratory Rate 16 16 16 Blood Pressure 156/69 H Pulse Oximetry 96 96 96 04/06/18 14:00 04/06/18 14:47 04/06/18 15:34 Temperature 99.2 F Pulse Rate 80 80 79 Respiratory Rate 16 16 16 Blood Pressure 99/49 L 109/53 L Pulse Oximetry 95 95 96 04/06/18 15:35 04/06/18 15:40 04/06/18 15:45 Temperature 99.2 F Pulse Rate 79 79 78 Respiratory Rate 16 16 16 Blood Pressure 100/51 L 103/51 L 105/53 L Pulse Oximetry 96 96 97 04/06/18 15:50 04/06/18 15:55 04/06/18 16:00 Temperature Pulse Rate 79 78 76 Respiratory Rate 16 16 16 Blood Pressure 108/54 L 107/53 L 112/56 L Pulse Oximetry 97 96 97 04/06/18 16:05 04/06/18 16:10 04/06/18 16:15 Temperature Pulse Rate 78 77 76 Respiratory Rate 16 16 16 Blood Pressure 125/60 131/58 L 120/55 L Pulse Oximetry 97 97 97 04/06/18 16:20 04/06/18 16:25 04/06/18 16:30 Temperature Pulse Rate 78 76 77 Respiratory Rate 16 16 16 Blood Pressure 134/60 116/53 L 112/52 L Pulse Oximetry 96 96 96 04/06/18 16:35 04/06/18 16:40 04/06/18 16:45 Temperature Pulse Rate 76 76 76 Respiratory Rate 16 16 16 Blood Pressure 112/55 L 102/53 L 109/55 L Pulse Oximetry 96 96 96 04/06/18 16:50 04/06/18 16:55 04/06/18 17:00 Temperature Pulse Rate 76 76 76 Respiratory Rate 16 16 16 Blood Pressure 109/54 L 115/55 L 115/56 L Pulse Oximetry 96 96 96 04/06/18 17:05 04/06/18 18:00 04/06/18 20:00 Temperature 98.8 F Pulse Rate 76 76 75 Respiratory Rate 16 16 Blood Pressure 134/63 141/63 H Pulse Oximetry 96 96 04/06/18 20:45 08/29/18 22:00 04/06/18 23:38 Temperature Pulse Rate 76 74 Respiratory Rate 16 18 Blood Pressure Pulse Oximetry 95 04/07/18 00:00 04/07/18 00:15 04/07/18 02:00 Temperature 98.8 F Pulse Rate 72 130 H 132 H Respiratory Rate 16 Blood Pressure 150/67 H Pulse Oximetry 96 04/07/18 03:00 04/07/18 04:00 04/07/18 06:00 Temperature 99.1 F Pulse Rate 137 H 138 H 136 H Respiratory Rate 17 16 Blood Pressure 113/67 Pulse Oximetry 96 Intake & Output 04/06/18 04/07/18 04/07/18 18:59 06:59 18:59 Intake Total 770 / 770 375 / 375 Output Total 450 / 450 Balance 320 / 320 375 / 375 Intake: IV 200 / 200 375 / 375 Nitroglycerin Drip Premix 50 mg 250 / 250 In 250 ml @ Per Protocol IV. CONT TITRATE PRN Rx#:[id number] Diprivan 1000 mg/100 ml Inj 1, 200 / 200 000 mg In 100 ml @ 5 MCG/KG/MIN 2.994 mls/hr IV.CONT TITRATE PRN Rx#:[id number] Cardizem Inj 125 MG In NS Inj 125 / 125 100 ML @ 5 MG/HR 5 mls/hr IV. CONT TITRATE PRN Rx#:[id number] Tube Feeding 450 / 450 Tube Irrigant 120 / 120 Output: Urine Amount (Catheter) 450 / 450 Indwelling Urethral Catheter 450 / 450 Other: Date of Last Bowel Movement 04/01/18 Result Diagrams: 04/06/18 04:42 04/06/18 04:42 Objective Remarks: GENERAL: Obese elderly female, lying in bed, intubated, eyes are open not following commands HEENT: Normocephalic. Atraumatic. Pupils equal, round, reactive, conjugate. Orotracheally intubated NECK: Trachea is midline. Positive JVD CHEST: Equal chest rise. PRVC mode of ventilation. Basilar crackles CARDIOVASCULAR: Currently in NSR on Cardizem infusion. ABDOMEN: Obese, soft, nontender, nondistended. No guarding. MUSCULOSKELETAL: Pulses 2+. No peripheral edema. NEUROLOGICAL: Eyes are partially open, do not follow commands. Withdraws to pain. Moves extremities spontaneously Assessment and Plan - Assessment and Plan Plan: Assessment: 77-year-old female with acute diastolic heart failure exacerbation with concomitant acute non-ST elevation myocardial infarction, most likely type II secondary to demand ischemia and hypertensive emergency. Remains critically ill with minimal improvements in the last 24 hours. Worsening renal failure hemodialysis started on 04/05/2018 NEURO: Acute metabolic encephalopathy Remains on small dose of propofol. Now turned off Lortab as needed for pain. Fentanyl as needed for breakthrough pain. RESP: Acute hypoxemic respiratory failure Prior tobacco abuse PRVC. Ventilator bundle. Wean FiO2 for sats greater than 90%. CPAP trial failed due to hypoxia and mental status, attempt again today CV: Acute severe pulmonary edema -improving Acute diastolic heart failure exacerbation Hypertensive emergency Atrial fibrillation with rapid ventricular response, new onset Acute non-ST elevation myocardial infarction, type II most likely History of coronary artery disease with prior stent 2003 Hyperlipidemia Started on Cardizem infusion yesterday currently on 15 mg/h Start Cardizem 60 mg p.o. every 6 hours, and wean to DC Cardizem infusion DC Norvasc. Serial troponins, EKG, 2D Echo normal LVEF On Lasix to 40 mg IV every 12 on 04/04. Started on hemodialysis 04/05/2018, but family refused hemodialysis 04/06/2018 No LIZ inhibitor at this time due to kidney injury. Previously was too bradycardic to use beta blockers Previously intolerant to statin. ASA 81 daily. GI: Obesity OGT in place. tube feeds FEN/RENAL: Acute on chronic kidney disease. -Nephrology following, started HD 04/05/18, 1.25L removed -Family had refused hemodialysis yesterday we will readdress with family today Fernando is in place. Daily BMP Hyperkalemiaresolved Trend on BMP ID: Afebrile. Seems much less likely to be of infectious etiology at this point so we will monitor off antibiotics. No significant secretions with suctioning. monitor. HEME: Monitor CBC ENDO: Diabetes mellitus Monitor bedside glucose every 6 hours and administer medium dose sliding scale as indicated. PROPH: SCDs and sq heparin for DVT prophylaxis. Famotidine IV for stress ulcer prophylaxis. ACCESS: PIV providing adequate access at this time This patient remains critically ill with one or more organ systems which are or may become a threat to life. I have spent in excess of 31 minutes discontinuously in the care and management of this patient. This time is exclusive of procedures, and includes, but is not limited to, evaluation of the patient, review of the medical record, discussions with family, consultants, nursing staff, or respiratory therapy, and documentation in the medical record. Palliative care following ALT CODE NOW. Will discuss with family goals of care
[2018-04-07] MEDS: Senna/Docusate Sodium 8.6/50 MG Tablet PO SCH ×2 (08:36→20:40)
[2018-04-07] MEDS: Famotidine PF Inj 20 MG/2 ML Vial IV.PUSH SCH ×2 (08:36→20:45)
[2018-04-07] MEDS: Labetalol HCl Inj 100 MG/20 ML Vial IV.PUSH PRN ×2 (08:37→13:10)
[2018-04-07 09:03] LABS: Hematocrit 28.6 % (35.0-46.0); Hemoglobin 9.2 gm/dL (11.6-15.3); Mean Corpuscular HGB Conc 32.1 % (32.0-36.0); Mean Corpuscular Hemoglobin 27.5 pg (27.0-34.0); Mean Corpuscular Volume 85.6 fL (80.0-100.0); Mean Platelet Volume 10.4 fL (7.0-11.0); Platelet Count 241 th/mm3 (150-450); Red Blood Count 3.34 mil/mm3 (4.00-5.30); Red Cell Distribution Width 15.7 % (11.6-17.2); White Blood Count 11.3 th/mm3 (4.0-11.0)
[2018-04-07 09:18] LABS: Albumin 1.8 g/dL (3.4-5.0); Anion Gap 10 meq/L (5-15); Aspartate Aminotransferase 69 U/L (15-37); Blood Urea Nitrogen 78 mg/dL (7-18); Calcium 8.5 mg/dL (8.5-10.1); Carbon Dioxide 28.7 meq/L (21.0-32.0); Chloride 103 meq/L (98-107); Glomerular Filtration Rate 16 mL/min (>89); Glucose,Random 295 mg/dL (74-106); Potassium 4.6 meq/L (3.5-5.1); Sodium 142 meq/L (136-145)
[2018-04-07 09:22] LABS: Alanine Aminotransferase 46 U/L (10-53); Alkaline Phosphatase 121 U/L (45-117); Total Protein 6.2 g/dL (6.4-8.2)
[2018-04-07] MEDS: dilTIAZem 60 MG Tablet PO SCH ×4 (10:34→20:40)
[2018-04-07] MEDS: Chlorhexidine 0.12% Oral Kit 15 ML UDC OROPHARYNG SCH ×2 (10:34→20:40)
[2018-04-07] MEDS: Heparin - SQ 10,000 UNITS/ML Vial SQ SCH ×2 (10:35→20:41)
--- NOTE | 2018-04-07 11:06 | P.PNPAL ---
Reason for Visit Reason for visit: a. To assist with evaluation and management of symptoms including: pain, dyspnea b. To assist medical decision maker(s) with: better understanding of current medical conditions; weighing benefits/burdens of medical treatment options; making medical treatment decisions. Subjective Subjective/Interval History: Pt intubated on vent. Opens eyes to name. Appears comfortable. No grimacing or tenderness on exam. She was tachycardic this morning, HR 130 but has regular rate on my eval. Today BUN 78, creatinine 78. 450ml urine in last 24h. Family wants to try dialysis one more time, possible medical extubation tomorrow. Family/Friend Interactions: Brief discussion with son Devon at bedside. They are going to try dialysis one more time and then hope she can be medically extubated tomorrow. Advance Directives Living Will: Copy in medical record Objective Vital Signs: Vital Signs 04/06/18 12:00 04/06/18 12:43 04/06/18 14:00 Temperature Pulse Rate 82 80 Respiratory Rate 16 16 16 Blood Pressure Pulse Oximetry 96 96 95 04/06/18 14:47 04/06/18 15:34 04/06/18 15:35 Temperature 99.2 F Pulse Rate 80 79 79 Respiratory Rate 16 16 16 Blood Pressure 99/49 L 109/53 L 100/51 L Pulse Oximetry 95 96 96 04/06/18 15:40 04/06/18 15:45 04/06/18 15:50 Temperature 99.2 F Pulse Rate 79 78 79 Respiratory Rate 16 16 16 Blood Pressure 103/51 L 105/53 L 108/54 L Pulse Oximetry 96 97 97 04/06/18 15:55 04/06/18 16:00 04/06/18 16:05 Temperature Pulse Rate 78 76 78 Respiratory Rate 16 16 16 Blood Pressure 107/53 L 112/56 L 125/60 Pulse Oximetry 96 97 97 04/06/18 16:10 04/06/18 16:15 04/06/18 16:20 Temperature Pulse Rate 77 76 78 Respiratory Rate 16 16 16 Blood Pressure 131/58 L 120/55 L 134/60 Pulse Oximetry 97 97 96 04/06/18 16:25 04/06/18 16:30 04/06/18 16:35 Temperature Pulse Rate 76 77 76 Respiratory Rate 16 16 16 Blood Pressure 116/53 L 112/52 L 112/55 L Pulse Oximetry 96 96 96 04/06/18 16:40 04/06/18 16:45 04/06/18 16:50 Temperature Pulse Rate 76 76 76 Respiratory Rate 16 16 16 Blood Pressure 102/53 L 109/55 L 109/54 L Pulse Oximetry 96 96 96 04/06/18 16:55 04/06/18 17:00 04/06/18 17:05 Temperature Pulse Rate 76 76 76 Respiratory Rate 16 16 16 Blood Pressure 115/55 L 115/56 L 134/63 Pulse Oximetry 96 96 96 04/06/18 18:00 04/06/18 20:00 04/06/18 20:45 Temperature 98.8 F Pulse Rate 76 75 76 Respiratory Rate 16 16 Blood Pressure 141/63 H Pulse Oximetry 96 04/06/18 22:00 04/06/18 23:38 04/07/18 00:00 Temperature 98.8 F Pulse Rate 74 72 Respiratory Rate 18 16 Blood Pressure 150/67 H Pulse Oximetry 95 96 04/07/18 00:15 04/07/18 02:00 04/07/18 03:00 Temperature Pulse Rate 130 H 132 H 137 H Respiratory Rate 17 Blood Pressure Pulse Oximetry 04/07/18 04:00 04/07/18 06:00 04/07/18 08:58 Temperature 99.1 F Pulse Rate 138 H 136 H Respiratory Rate 16 13 Blood Pressure 113/67 Pulse Oximetry 96 97 04/07/18 09:07 Temperature Pulse Rate 61 Respiratory Rate 15 Blood Pressure Pulse Oximetry Intake & Output 04/06/18 04/07/18 04/07/18 18:59 06:59 18:59 Intake Total 770 / 770 375 / 375 Output Total 450 / 450 Balance 320 / 320 375 / 375 Intake: IV 200 / 200 375 / 375 Nitroglycerin Drip Premix 50 mg 250 / 250 In 250 ml @ Per Protocol IV. CONT TITRATE PRN Rx#:[id number] Diprivan 1000 mg/100 ml Inj 1, 200 / 200 000 mg In 100 ml @ 5 MCG/KG/MIN 2.994 mls/hr IV.CONT TITRATE PRN Rx#:[id number] Cardizem Inj 125 MG In NS Inj 125 / 125 100 ML @ 5 MG/HR 5 mls/hr IV. CONT TITRATE PRN Rx#:[id number] Tube Feeding 450 / 450 Tube Irrigant 120 / 120 Output: Urine Amount (Catheter) 450 / 450 Indwelling Urethral Catheter 450 / 450 Other: Date of Last Bowel Movement 04/01/18 Physical Exam: CONSTITUTIONAL/GENERAL: This is an adequately nourished patient, sedated on vent TUBES/LINES/DRAINS: OETT, OGT, lerner SKIN: pale. No jaundice, rashes, or lesions. BUE ecchymoses. No wounds seen anteriorly. HEAD: Atraumatic. Normocephalic. EYES: orbital edema. No scleral icterus. No injection or drainage. ENT: Hearing grossly normal. Nose without bleeding or purulent drainage. Throat exam limited by ET tube CARDIOVASCULAR: RRR Peripheral pulses symmetric. RESPIRATORY/CHEST: Symmetric, unlabored respirations. coarse. Breath sounds equal bilaterally. GASTROINTESTINAL: Abdomen soft, nondistended. No hepato-splenomegaly, or palpable masses. GENITOURINARY: Without palpable bladder distension. Lerner catheter in place. MUSCULOSKELETAL: sedated on vent Extremities without clubbing, cyanosis. + BUE edema No mottling or clubbing. NEUROLOGICAL: sedated on vent. minimal response to name being called. lethargic. Diagnostic Tests Laboratory: Laboratory Results - last 72 hr 04/04/18 04/04/18 04/04/18 11:37 11:40 15:56 WBC RBC Hgb Hct MCV MCH MCHC RDW Plt Count MPV Neut % (Auto) Lymph % (Auto) Crawford % (Auto) Eos % (Auto) Baso % (Auto) Neut # (Auto) Lymph # (Auto) Crawford # (Auto) Eos # (Auto) Baso # (Auto) WBC Differential Differential Comment APTT Puncture Site Right radial Patient Temperature 98.6 O2 Saturation 88 L* ABG pH 7.46 H ABG pCO2 35 L ABG pO2 62 ABG HCO3 25 ABG O2 Content 18.6 ABG Base Excess 1.4 ABG Methemoglobin 1.7 Durga Test Present Hemoglobin 15.0 Carboxyhemoglobin 0.8 O2 Delivery Device Ventilator Vent Setting Cpap5/ps 10 Inspired O2 35 Critical Value Yes Sodium Potassium Chloride Carbon Dioxide Anion Gap BUN Creatinine Estimated GFR POC Glucose 237 H 256 H Random Glucose Calcium Total Bilirubin AST ALT Alkaline Phosphatase Total Protein Albumin Hepatitis A IgM Ab Hep Bs Antigen Hep B Core IgM Ab Hep C IgG Ab 04/04/18 04/05/18 04/05/18 21:35 01:13 05:54 WBC RBC Hgb Hct MCV MCH MCHC RDW Plt Count MPV Neut % (Auto) Lymph % (Auto) Crawford % (Auto) Eos % (Auto) Baso % (Auto) Neut # (Auto) Lymph # (Auto) Crawford # (Auto) Eos # (Auto) Baso # (Auto) WBC Differential Differential Comment APTT Puncture Site Patient Temperature O2 Saturation ABG pH ABG pCO2 ABG pO2 ABG HCO3 ABG O2 Content ABG Base Excess ABG Methemoglobin Durga Test Hemoglobin Carboxyhemoglobin O2 Delivery Device Vent Setting Inspired O2 Critical Value Sodium Potassium Chloride Carbon Dioxide Anion Gap BUN Creatinine Estimated GFR POC Glucose 288 H 293 H 246 H Random Glucose Calcium Total Bilirubin AST ALT Alkaline Phosphatase Total Protein Albumin Hepatitis A IgM Ab Hep Bs Antigen Hep B Core IgM Ab Hep C IgG Ab 04/05/18 04/05/18 04/05/18 07:00 07:36 10:35 WBC 17.1 H RBC 3.38 L Hgb 9.3 L Hct 28.6 L MCV 84.6 MCH 27.4 MCHC 32.4 RDW 15.5 Plt Count 226 MPV 11.0 Neut % (Auto) 88.8 H Lymph % (Auto) 3.9 L Crawford % (Auto) 5.7 Eos % (Auto) 1.2 Baso % (Auto) 0.4 Neut # (Auto) 15.2 H Lymph # (Auto) 0.7 L Crawford # (Auto) 1.0 H Eos # (Auto) 0.2 Baso # (Auto) 0.1 WBC Differential . Differential Comment Auto diff final APTT 22.9 L D Puncture Site Patient Temperature O2 Saturation ABG pH ABG pCO2 ABG pO2 ABG HCO3 ABG O2 Content ABG Base Excess ABG Methemoglobin Durga Test Hemoglobin Carboxyhemoglobin O2 Delivery Device Vent Setting Inspired O2 Critical Value Sodium Potassium Chloride Carbon Dioxide Anion Gap BUN Creatinine Estimated GFR POC Glucose 244 H Random Glucose Calcium Total Bilirubin AST ALT Alkaline Phosphatase Total Protein Albumin Hepatitis A IgM Ab Hep Bs Antigen Hep B Core IgM Ab Hep C IgG Ab 04/05/18 04/05/18 04/05/18 10:35 11:10 12:15 WBC RBC Hgb Hct MCV MCH MCHC RDW Plt Count MPV Neut % (Auto) Lymph % (Auto) Crawford % (Auto) Eos % (Auto) Baso % (Auto) Neut # (Auto) Lymph # (Auto) Crawford # (Auto) Eos # (Auto) Baso # (Auto) WBC Differential Differential Comment APTT Puncture Site Right radial Patient Temperature 98.6 O2 Saturation 93 ABG pH 7.42 ABG pCO2 40 ABG pO2 81 ABG HCO3 25 ABG O2 Content 12.4 ABG Base Excess 1.1 ABG Methemoglobin 1.5 Durga Test Present Hemoglobin 9.4 L Carboxyhemoglobin 1.0 O2 Delivery Device Ventilator Vent Setting Cpap 5/5ps Inspired O2 35 Critical Value No Sodium 136 Potassium 4.5 Chloride 97 L Carbon Dioxide 25.8 Anion Gap 13 BUN 69 H Creatinine 3.22 H Estimated GFR 14 L POC Glucose 311 H Random Glucose 274 H Calcium 7.8 L Total Bilirubin 0.5 AST 105 H ALT 37 Alkaline Phosphatase 109 Total Protein 6.3 L D Albumin 2.0 L Hepatitis A IgM Ab Hep Bs Antigen Hep B Core IgM Ab Hep C IgG Ab 04/05/18 04/05/18 04/05/18 13:41 17:16 21:01 WBC RBC Hgb Hct MCV MCH MCHC RDW Plt Count MPV Neut % (Auto) Lymph % (Auto) Crawford % (Auto) Eos % (Auto) Baso % (Auto) Neut # (Auto) Lymph # (Auto) Crawford # (Auto) Eos # (Auto) Baso # (Auto) WBC Differential Differential Comment APTT Puncture Site Patient Temperature O2 Saturation ABG pH ABG pCO2 ABG pO2 ABG HCO3 ABG O2 Content ABG Base Excess ABG Methemoglobin Durga Test Hemoglobin Carboxyhemoglobin O2 Delivery Device Vent Setting Inspired O2 Critical Value Sodium Potassium Chloride Carbon Dioxide Anion Gap BUN Creatinine Estimated GFR POC Glucose 179 H 291 H Random Glucose Calcium Total Bilirubin AST ALT Alkaline Phosphatase Total Protein Albumin Hepatitis A IgM Ab Nonreactive Hep Bs Antigen Nonreactive Hep B Core IgM Ab Nonreactive Hep C IgG Ab Nonreactive 04/06/18 04/06/18 04/06/18 04:42 04:42 04:42 WBC 11.3 H RBC 3.39 L Hgb 9.3 L Hct 29.2 L MCV 86.0 MCH 27.4 MCHC 31.8 L RDW 15.8 Plt Count 228 MPV 10.9 Neut % (Auto) Lymph % (Auto) Crawford % (Auto) Eos % (Auto) Baso % (Auto) Neut # (Auto) Lymph # (Auto) Crawford # (Auto) Eos # (Auto) Baso # (Auto) WBC Differential Differential Comment APTT 25.2 Puncture Site Patient Temperature O2 Saturation ABG pH ABG pCO2 ABG pO2 ABG HCO3 ABG O2 Content ABG Base Excess ABG Methemoglobin Durga Test Hemoglobin Carboxyhemoglobin O2 Delivery Device Vent Setting Inspired O2 Critical Value Sodium 141 Potassium 4.1 Chloride 102 Carbon Dioxide 26.7 Anion Gap 12 BUN 60 H Creatinine 2.60 H Estimated GFR 18 L POC Glucose Random Glucose 339 H Calcium 8.0 L Total Bilirubin 0.4 AST 93 H ALT 47 Alkaline Phosphatase 134 H Total Protein 6.3 L Albumin 1.8 L Hepatitis A IgM Ab Hep Bs Antigen Hep B Core IgM Ab Hep C IgG Ab 04/06/18 04/06/18 04/06/18 05:23 10:40 12:31 WBC RBC Hgb Hct MCV MCH MCHC RDW Plt Count MPV Neut % (Auto) Lymph % (Auto) Crawford % (Auto) Eos % (Auto) Baso % (Auto) Neut # (Auto) Lymph # (Auto) Crawford # (Auto) Eos # (Auto) Baso # (Auto) WBC Differential Differential Comment APTT Puncture Site Patient Temperature O2 Saturation ABG pH ABG pCO2 ABG pO2 ABG HCO3 ABG O2 Content ABG Base Excess ABG Methemoglobin Durga Test Hemoglobin Carboxyhemoglobin O2 Delivery Device Vent Setting Inspired O2 Critical Value Sodium Potassium Chloride Carbon Dioxide Anion Gap BUN Creatinine Estimated GFR POC Glucose 353 H 365 H 359 H Random Glucose Calcium Total Bilirubin AST ALT Alkaline Phosphatase Total Protein Albumin Hepatitis A IgM Ab Hep Bs Antigen Hep B Core IgM Ab Hep C IgG Ab 04/06/18 04/06/18 04/06/18 16:16 20:10 23:36 WBC RBC Hgb Hct MCV MCH MCHC RDW Plt Count MPV Neut % (Auto) Lymph % (Auto) Crawford % (Auto) Eos % (Auto) Baso % (Auto) Neut # (Auto) Lymph # (Auto) Crawford # (Auto) Eos # (Auto) Baso # (Auto) WBC Differential Differential Comment APTT Puncture Site Patient Temperature O2 Saturation ABG pH ABG pCO2 ABG pO2 ABG HCO3 ABG O2 Content ABG Base Excess ABG Methemoglobin Durga Test Hemoglobin Carboxyhemoglobin O2 Delivery Device Vent Setting Inspired O2 Critical Value Sodium Potassium Chloride Carbon Dioxide Anion Gap BUN Creatinine Estimated GFR POC Glucose 233 H 248 H 295 H Random Glucose Calcium Total Bilirubin AST ALT Alkaline Phosphatase Total Protein Albumin Hepatitis A IgM Ab Hep Bs Antigen Hep B Core IgM Ab Hep C IgG Ab 04/07/18 04/07/18 04/07/18 04:13 04:38 08:20 WBC RBC Hgb Hct MCV MCH MCHC RDW Plt Count MPV Neut % (Auto) Lymph % (Auto) Crawford % (Auto) Eos % (Auto) Baso % (Auto) Neut # (Auto) Lymph # (Auto) Crawford # (Auto) Eos # (Auto) Baso # (Auto) WBC Differential Differential Comment APTT Cancelled Puncture Site Patient Temperature O2 Saturation ABG pH ABG pCO2 ABG pO2 ABG HCO3 ABG O2 Content ABG Base Excess ABG Methemoglobin Durga Test Hemoglobin Carboxyhemoglobin O2 Delivery Device Vent Setting Inspired O2 Critical Value Sodium Potassium Chloride Carbon Dioxide Anion Gap BUN Creatinine Estimated GFR POC Glucose 323 H 330 H Random Glucose Calcium Total Bilirubin AST ALT Alkaline Phosphatase Total Protein Albumin Hepatitis A IgM Ab Hep Bs Antigen Hep B Core IgM Ab Hep C IgG Ab 04/07/18 04/07/18 08:44 08:48 WBC 11.3 H RBC 3.34 L Hgb 9.2 L Hct 28.6 L MCV 85.6 MCH 27.5 MCHC 32.1 RDW 15.7 Plt Count 241 MPV 10.4 Neut % (Auto) Lymph % (Auto) Crawford % (Auto) Eos % (Auto) Baso % (Auto) Neut # (Auto) Lymph # (Auto) Crawford # (Auto) Eos # (Auto) Baso # (Auto) WBC Differential Differential Comment APTT Puncture Site Patient Temperature O2 Saturation ABG pH ABG pCO2 ABG pO2 ABG HCO3 ABG O2 Content ABG Base Excess ABG Methemoglobin Durga Test Hemoglobin Carboxyhemoglobin O2 Delivery Device Vent Setting Inspired O2 Critical Value Sodium 142 Potassium 4.6 Chloride 103 Carbon Dioxide 28.7 Anion Gap 10 BUN 78 H Creatinine 2.78 H Estimated GFR 16 L POC Glucose Random Glucose 295 H Calcium 8.5 Total Bilirubin 0.3 AST 69 H ALT 46 Alkaline Phosphatase 121 H Total Protein 6.2 L Albumin 1.8 L Hepatitis A IgM Ab Hep Bs Antigen Hep B Core IgM Ab Hep C IgG Ab Result Diagrams: 04/07/18 08:44 04/07/18 08:48 Microbiology: Microbiology 04/01/18 21:20 Aerobic Blood Culture - Final Blood - Peripheral No growth in 5 days Anaerobic Blood Culture - Final No growth in 5 days 04/01/18 21:15 Aerobic Blood Culture - Final Blood - Peripheral No growth in 5 days Anaerobic Blood Culture - Final No growth in 5 days 04/03/18 12:30 Gram Stain - Final Sputum - Endotracheal Sputum Culture - Final Procedures: 04/05 vascath placement Assessment and Plan - Disease Oriented Problem List (1) Chronic kidney disease, stage 4, severely decreased GFR (2) Congestive heart failure (3) Respiratory failure (4) Hypertension (5) Diabetes (6) NSTEMI (non-ST elevated myocardial infarction) Pertinent Non-Medical Issues: Psychosocial: Pt originally from [place], then moved to [place]. Has divided her time between [place] and [place] over the last 10 years. Recently living with Daughter who is local. 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 . Has 3 children. Spiritual: [employer]. Familly requests pastoral care Legal: Pt not capacitated to make decisions. In absence of designated HCS medical decision makin falls to the majority of pt's 3 children. Family appears to be working together. Ethical issues impacting care: Important Contacts: Meliza Murrell [phone] cell [phone] brother in [place] Jorje [phone] Prognosis: 77 yo female, with CKD 4, type 2 DM noncompliant with insulin, admitted 04/01 with chest pain, SOB. Found to have NSTEMI. Cardiology not wanting to do cath procedure, recommending medical mgmt including anticoagulation but this is held currently 2/2 hypopharyngeal bleeding from intubaiton injury. nephrology recommending dialysis. Pt with worsening kidney function. Failed initial spontaneous breathing trials 2/2 agitation, mental status. Prognosis w/o dialysis extremely poor. Even with dialysis pt not likely to return to baseline. Code Status: Alternative Code (intubation only) Plan: - LEGAL DECISON MAKER -patient not capacitated to make medical decisions. In the absence of designated healthcare surrogate, per [place] statutes proxy decision-making falls to majority of 3 children. Family appears to be working together. - CODE STATUS- alt code intubation only; reaffirmed 04/06 - GOALS - They are going to try dialysis one more time and then hope she can be medically extubated tomorrow. - SYMPTOMS - * pain - multifactorial, acute and chronic. at time of admission had chest pain. pt had sciatica, had just had injection. pt also had neuropathy per family. unable to quantify or qualify pain. on my eval she appears comfortable , no grimacing. [place] 5/325 q4h prn, 2d ago * dyspnea - had SOB prior to arrival. increasing activity intolerance over last few weeks. intubated prior to arrival. Found to have NSTEMI. cardiology recommending medical mgmt, no cath. tolerated cpap 2d ago, possible medical extubation tomorrow after dialysis. has hola, PRN koffi - d/w RN Diego - hospice following - Palliative care will continue to follow during hospital course as condition evolves, to assist patient/decision-maker with understanding of medical conditions, weighing benefits/burdens of treatment options, for clarification of goals of treatment. Additionally will assist with any symptoms of palliative concern Attestation Attestation: To help prompt me to consider important information that might be impacting today's encounter and assessment, information from prior notes written by myself or my colleagues may have been "brought forward" into today's note. My signature on this note, however, is an attestation that I personally performed the exam, history, and/or decision-making noted today, and, unless otherwise indicated, the interactions with patient, family, and staff as well as the review of records all occurred today. I also attest that the listed assessment and stated plan reflect my best clinical judgment today based on the combination of historical information, prior notes, and today's exam/ interactions. When time spent is documented, it refers only to time spent today by the signer, or if indicated, combined time spent today by collaborating physician/nurse practitioner.
--- NOTE | 2018-04-07 17:47 | P.PNNP ---
Subjective Interval history: Patient remains intubated Physical Exam Vital signs: Vital Signs 04/06/18 18:00 04/06/18 20:00 04/06/18 20:45 Temperature 98.8 F Pulse Rate 76 75 76 Respiratory Rate 16 16 Blood Pressure 141/63 H Pulse Oximetry 96 04/06/18 22:00 04/06/18 23:38 04/07/18 00:00 Temperature 98.8 F Pulse Rate 74 72 Respiratory Rate 18 16 Blood Pressure 150/67 H Pulse Oximetry 95 96 04/07/18 00:15 04/07/18 02:00 04/07/18 03:00 Temperature Pulse Rate 130 H 132 H 137 H Respiratory Rate 17 Blood Pressure Pulse Oximetry 04/07/18 04:00 04/07/18 06:00 04/07/18 08:00 Temperature 99.1 F 99.1 F Pulse Rate 138 H 136 H 74 Respiratory Rate 16 16 Blood Pressure 113/67 172/75 H Pulse Oximetry 96 97 04/07/18 08:58 04/07/18 09:07 04/07/18 10:00 Temperature Pulse Rate 61 60 Respiratory Rate 13 15 Blood Pressure Pulse Oximetry 97 04/07/18 12:00 04/07/18 12:37 04/07/18 14:00 Temperature 99.3 F Pulse Rate 64 55 L Respiratory Rate 18 22 Blood Pressure 168/74 H Pulse Oximetry 98 98 04/07/18 16:27 Temperature Pulse Rate Respiratory Rate 18 Blood Pressure Pulse Oximetry 98 Intake & Output 04/06/18 04/07/18 04/07/18 18:59 06:59 18:59 Intake Total 770 / 770 375 / 375 1275 / 1275 Output Total 450 / 450 3000 / 3000 Balance 320 / 320 375 / 375 -1725 / -1725 Intake: IV 200 / 200 375 / 375 1275 / 1275 Nitroglycerin Drip Premix 50 mg 250 / 250 155 / 155 In 250 ml @ Per Protocol IV. CONT TITRATE PRN Rx#:[id number] Diprivan 1000 mg/100 ml Inj 1, 200 / 200 5 / 5 000 mg In 100 ml @ 5 MCG/KG/MIN 2.994 mls/hr IV.CONT TITRATE PRN Rx#:[id number] Cardizem Inj 125 MG In NS Inj 125 / 125 115 / 115 100 ML @ 5 MG/HR 5 mls/hr IV. CONT TITRATE PRN Rx#:[id number] NS Inj 1,000 ML @ Wide Open IV. 1000 / 1000 SIG BOLUS VIVEK Rx#:[id number] Tube Feeding 450 / 450 Tube Irrigant 120 / 120 Output: Hemodialysis Amount 3000 / 3000 Urine Amount (Catheter) 450 / 450 Indwelling Urethral Catheter 450 / 450 Other: Date of Last Bowel Movement 04/01/18 - Constitutional no acute distress - Routine HEENT Exam Eye: Present: EOMI - Routine Neck Exam Present: supple - Routine Respiratory Exam Present: CTA bilaterally - Routine Cardiovascular Exam Present: RRR - Routine Abdominal Exam Present: soft, normoactive bowel sounds - Routine Extremities Exam Present: edema - Urinary Catheter Management Indwelling Urethral Catheter Cath placed during this visit: yes Reason for continuing: Acute urinary retention Insertion date: 04/01/18 Insertion time: 21:18 Assessment and Plan - Assessment (1) Chronic kidney disease, stage 4, severely decreased GFR Code(s): N18.4 - Chronic kidney disease, stage 4 (severe) Status: Acute (2) Congestive heart failure Code(s): I50.9 - Heart failure, unspecified Status: Acute (3) Respiratory failure Code(s): J96.90 - Respiratory failure, unspecified, unspecified whether with hypoxia or hypercapnia Status: Acute (4) Hypertension Code(s): I10 - Essential (primary) hypertension Status: Acute (5) Diabetes Code(s): E11.9 - Type 2 diabetes mellitus without complications Status: Acute - Plan Patient has advanced kidney failure in chronic kidney disease stage IV by history: Patient is critically ill, intubated Hemodialysis done patient was seen during procedure 3 L of ultrafiltration on 3K bath Palliative care by tomorrow
--- NOTE | 2018-04-07 17:50 | P.PNCA ---
Subjective Interval history: Patient intubated with no sedation since early this morning. Patient does attempt to follow commands but is very weak, per the nurse. Unable to get patient to follow during assessment. Physical Exam Vital signs: Vital Signs 04/06/18 18:00 04/06/18 20:00 04/06/18 20:45 Temperature 98.8 F Pulse Rate 76 75 76 Respiratory Rate 16 16 Blood Pressure 141/63 H Pulse Oximetry 96 04/06/18 22:00 04/06/18 23:38 04/07/18 00:00 Temperature 98.8 F Pulse Rate 74 72 Respiratory Rate 18 16 Blood Pressure 150/67 H Pulse Oximetry 95 96 04/07/18 00:15 04/07/18 02:00 04/07/18 03:00 Temperature Pulse Rate 130 H 132 H 137 H Respiratory Rate 17 Blood Pressure Pulse Oximetry 04/07/18 04:00 04/07/18 06:00 04/07/18 08:00 Temperature 99.1 F 99.1 F Pulse Rate 138 H 136 H 74 Respiratory Rate 16 16 Blood Pressure 113/67 172/75 H Pulse Oximetry 96 97 04/07/18 08:58 04/07/18 09:07 04/07/18 10:00 Temperature Pulse Rate 61 60 Respiratory Rate 13 15 Blood Pressure Pulse Oximetry 97 04/07/18 12:00 04/07/18 12:37 04/07/18 14:00 Temperature 99.3 F Pulse Rate 64 55 L Respiratory Rate 18 22 Blood Pressure 168/74 H Pulse Oximetry 98 98 04/07/18 16:27 Temperature Pulse Rate Respiratory Rate 18 Blood Pressure Pulse Oximetry 98 Intake & Output 04/06/18 04/07/18 04/07/18 18:59 06:59 18:59 Intake Total 770 / 770 375 / 375 1275 / 1275 Output Total 450 / 450 3000 / 3000 Balance 320 / 320 375 / 375 -1725 / -1725 Intake: IV 200 / 200 375 / 375 1275 / 1275 Nitroglycerin Drip Premix 50 mg 250 / 250 155 / 155 In 250 ml @ Per Protocol IV. CONT TITRATE PRN Rx#:[id number] Diprivan 1000 mg/100 ml Inj 1, 200 / 200 5 / 5 000 mg In 100 ml @ 5 MCG/KG/MIN 2.994 mls/hr IV.CONT TITRATE PRN Rx#:[id number] Cardizem Inj 125 MG In NS Inj 125 / 125 115 / 115 100 ML @ 5 MG/HR 5 mls/hr IV. CONT TITRATE PRN Rx#:[id number] NS Inj 1,000 ML @ Wide Open IV. 1000 / 1000 SIG BOLUS VIVEK Rx#:[id number] Tube Feeding 450 / 450 Tube Irrigant 120 / 120 Output: Hemodialysis Amount 3000 / 3000 Urine Amount (Catheter) 450 / 450 Indwelling Urethral Catheter 450 / 450 Other: Date of Last Bowel Movement 04/01/18 - Constitutional no acute distress - Routine HEENT Exam Head: Present: normocephalic Eye: Present: PERRL ENT: Present: mucous membranes moist - Routine Neck Exam Present: supple - Routine Respiratory Exam Present: patient mechanically ventilated, distant breath sounds - Routine Cardiovascular Exam Present: S1, S2. Absent: murmur, gallop, rubs - Routine Abdominal Exam Present: normoactive bowel sounds - Routine Extremities Exam Present: edema, pulses intact, normal capillary refill. Absent: cyanosis, clubbing - Routine Skin Exam Present: intact - Detailed Neurological Exam: Coma Scale Eye Opening: To sound Verbal Response: None Motor Response: None [place] Coma Scale Total: 5 - Urinary Catheter Management Indwelling Urethral Catheter Cath placed during this visit: yes Reason for continuing: Acute urinary retention Insertion date: 04/01/18 Insertion time: 21:18 Assessment and Plan - Assessment (1) NSTEMI (non-ST elevated myocardial infarction) Code(s): I21.4 - Non-ST elevation (NSTEMI) myocardial infarction Status: Acute (2) Chronic kidney disease, stage 4, severely decreased GFR Code(s): N18.4 - Chronic kidney disease, stage 4 (severe) Status: Acute (3) Congestive heart failure Code(s): I50.9 - Heart failure, unspecified Status: Acute (4) Respiratory failure Code(s): J96.90 - Respiratory failure, unspecified, unspecified whether with hypoxia or hypercapnia Status: Acute (5) Hypertension Code(s): I10 - Essential (primary) hypertension Status: Acute (6) Diabetes Code(s): E11.9 - Type 2 diabetes mellitus without complications Status: Acute - Plan 2D echo shows an EF of 55-60% with trace to mild mitral valve regurgitation and trace tricuspid valve regurgitation. She is currently not a candidate for cardiac catheterization due to significant renal insufficiency and high risk of contrast nephropathy and the need for permanent dialysis. Discussed with family at bed side. Nephrology evaluation in progress. Patient received dialysis today and become mildly hypotensive. Possible extubation tomorrow. Palliative care evaluation in progress, agree with current plan. Continue with current cardiac treatment plan. Discussed plan with family. The patient was seen and evaluated by Dr. Caba who participated in care, management and decision making. - Attending Attestation Patient seen and examined. I reviewed and agree with the evaluation and plan as presented. Recommend comfort care. Palliative care evaluation in progress.
[2018-04-08] MEDS: Insulin NovoLOG Aspart Correctional Sugar Inj SQ SCH ×4 (01:18→13:43)
[2018-04-08] MEDS: Oral Hygiene Kit OROPHARYNG SCH ×3 (01:19→13:46)
[2018-04-08] MEDS: Labetalol HCl Inj 100 MG/20 ML Vial IV.PUSH PRN (02:43)
[2018-04-08 05:24] LABS: Hematocrit 28.7 % (35.0-46.0); Hemoglobin 9.1 gm/dL (11.6-15.3); Mean Corpuscular HGB Conc 31.6 % (32.0-36.0); Mean Corpuscular Hemoglobin 27.2 pg (27.0-34.0); Platelet Count 223 th/mm3 (150-450); Red Blood Count 3.34 mil/mm3 (4.00-5.30); Red Cell Distribution Width 15.5 % (11.6-17.2); White Blood Count 11.1 th/mm3 (4.0-11.0)
--- NOTE | 2018-04-08 05:52 | XR ---
EXAM DATE: 04/08/2018 5:43 AM EDT AGE/SEX: 77 years / Female INDICATIONS: Shortness of breath. Possible respiratory disease. CLINICAL DATA: This is the patient's subsequent encounter. Patient reports that signs and symptoms h ave been present for 1 week and indicates a pain score of Nonresponsive. MEDICAL/SURGICAL HISTORY: . Compression fracture. hyperkalemia. Non-responsive. COMPARISON: [facility] – [place], CHEST 1V SINGLE AP, 04/06/2018. . FINDINGS: A single AP view of the chest demonstrates the tip of the endotracheal tube 3 cm from the janessa. Lef t-sided dialysis catheter. Nasogastric tube noted. Lungs are clear. No infiltrates or effusions. Hear t is normal in size. CONCLUSION: Clear lungs. Electronically signed by: Brett Gold MD 04/08/2018 5:51 AM EDT
[2018-04-08 06:01] LABS: Alanine Aminotransferase 45 U/L (10-53); Albumin 1.9 g/dL (3.4-5.0); Alkaline Phosphatase 107 U/L (45-117); Anion Gap 12 meq/L (5-15); Aspartate Aminotransferase 53 U/L (15-37); Blood Urea Nitrogen 63 mg/dL (7-18); Calcium 8.6 mg/dL (8.5-10.1); Carbon Dioxide 27.8 meq/L (21.0-32.0); Chloride 100 meq/L (98-107); Glomerular Filtration Rate 19 mL/min (>89); Glucose,Random 266 mg/dL (74-106); Potassium 4.5 meq/L (3.5-5.1); Sodium 140 meq/L (136-145); Total Protein 6.3 g/dL (6.4-8.2)
--- NOTE | 2018-04-08 08:00 | P.PNCA ---
Subjective Interval history: Patient sedated in no acute distress. Patient on Angel gtt for hypertension. Physical Exam Vital signs: Vital Signs 04/07/18 08:00 04/07/18 08:58 04/07/18 09:07 Temperature 99.1 F Pulse Rate 74 61 Respiratory Rate 16 13 15 Blood Pressure 172/75 H Pulse Oximetry 97 97 04/07/18 10:00 04/07/18 12:00 04/07/18 12:37 Temperature 99.3 F Pulse Rate 60 64 Respiratory Rate 18 22 Blood Pressure 168/74 H Pulse Oximetry 98 98 04/07/18 14:00 04/07/18 16:00 04/07/18 16:27 Temperature 99 F Pulse Rate 55 L 66 Respiratory Rate 16 18 Blood Pressure 139/67 Pulse Oximetry 97 98 04/07/18 18:00 04/07/18 20:00 04/07/18 21:00 Temperature 99.6 F Pulse Rate 68 68 73 Respiratory Rate 16 22 Blood Pressure 145/65 H Pulse Oximetry 92 L 04/07/18 21:12 04/07/18 22:00 04/08/18 00:00 Temperature 99.2 F Pulse Rate 71 71 Respiratory Rate 16 16 Blood Pressure 158/72 H Pulse Oximetry 95 04/08/18 00:11 04/08/18 02:00 04/08/18 03:53 Temperature Pulse Rate 77 101 H Respiratory Rate 16 16 Blood Pressure Pulse Oximetry 95 04/08/18 04:00 04/08/18 04:13 04/08/18 06:00 Temperature 99.2 F Pulse Rate 143 H 79 Respiratory Rate 16 16 Blood Pressure 179/74 H Pulse Oximetry 95 98 Intake & Output 04/07/18 04/08/18 04/08/18 18:59 06:59 18:59 Intake Total 1463 / 1463 435 / 435 Output Total 3700 / 3700 350 / 350 Balance -2237 / -2237 85 / 85 Intake: IV 1275 / 1275 Nitroglycerin Drip Premix 50 mg 155 / 155 In 250 ml @ Per Protocol IV. CONT TITRATE PRN Rx#:[id number] Diprivan 1000 mg/100 ml Inj 1, 5 / 5 000 mg In 100 ml @ 5 MCG/KG/MIN 2.994 mls/hr IV.CONT TITRATE PRN Rx#:[id number] Cardizem Inj 125 MG In NS Inj 115 / 115 100 ML @ 5 MG/HR 5 mls/hr IV. CONT TITRATE PRN Rx#:[id number] NS Inj 1,000 ML @ Wide Open IV. 1000 / 1000 SIG BOLUS VIVEK Rx#:[id number] Oral 0 / 0 Tube Feeding 88 / 88 315 / 315 Tube Irrigant 100 / 100 60 / 60 Water Bolus Amount 60 / 60 Output: Stool 0 / 0 Urine/Stool Mix 0 / 0 Hemodialysis Amount 3000 / 3000 Urine Amount (Catheter) 700 / 700 350 / 350 Indwelling Urethral Catheter 700 / 700 350 / 350 Other: Date of Last Bowel Movement 04/01/18 # Bowel Movements 0 # Incontinent Bowel Movements 0 - Constitutional no acute distress - Routine HEENT Exam Head: Present: normocephalic Eye: Present: PERRL ENT: Present: mucous membranes moist - Routine Respiratory Exam Present: patient mechanically ventilated, decreased breath sounds - Routine Cardiovascular Exam Absent: murmur, gallop, rubs - Routine Abdominal Exam Present: normoactive bowel sounds - Routine Extremities Exam Present: edema, pulses intact, normal capillary refill. Absent: cyanosis, clubbing - Detailed Neurological Exam: Coma Scale Eye Opening: To sound Verbal Response: None Motor Response: None [place] Coma Scale Total: 5 - Routine Psychiatric Exam Present: unable to assess - Urinary Catheter Management Indwelling Urethral Catheter Cath placed during this visit: yes Reason for continuing: Acute urinary retention Insertion date: 04/01/18 Insertion time: 21:18 Assessment and Plan - Assessment (1) NSTEMI (non-ST elevated myocardial infarction) Code(s): I21.4 - Non-ST elevation (NSTEMI) myocardial infarction Status: Acute (2) Chronic kidney disease, stage 4, severely decreased GFR Code(s): N18.4 - Chronic kidney disease, stage 4 (severe) Status: Acute (3) Congestive heart failure Code(s): I50.9 - Heart failure, unspecified Status: Acute (4) Respiratory failure Code(s): J96.90 - Respiratory failure, unspecified, unspecified whether with hypoxia or hypercapnia Status: Acute (5) Hypertension Code(s): I10 - Essential (primary) hypertension Status: Acute (6) Diabetes Code(s): E11.9 - Type 2 diabetes mellitus without complications Status: Acute - Plan She is currently not a candidate for cardiac catheterization due to significant renal insufficiency and high risk of contrast nephropathy and the need for permanent dialysis. Discussed with family at bed side. Nephrology evaluation in progress. Patient received dialysis yesterday. Family wanting to extubate today and place her on comfort care. Palliative care evaluation in progress, agree with current plan. Continue with current cardiac treatment plan. The patient was seen and evaluated by Dr. Caba who participated in care, management and decision making. - Attending Attestation Patient seen and examined. I reviewed and agree with the evaluation and plan as presented. Continue comfort care. Withdrawal of care considered. Will sign off.
[2018-04-08] MEDS: Senna/Docusate Sodium 8.6/50 MG Tablet PO SCH (08:37)
[2018-04-08] MEDS: Famotidine PF Inj 20 MG/2 ML Vial IV.PUSH SCH (08:38)
[2018-04-08] MEDS: Heparin - SQ 10,000 UNITS/ML Vial SQ SCH (08:38)
[2018-04-08] MEDS: dilTIAZem 60 MG Tablet PO SCH ×2 (08:38→14:53)
[2018-04-08] MEDS: Chlorhexidine 0.12% Oral Kit 15 ML UDC OROPHARYNG SCH (08:39)
--- NOTE | 2018-04-08 12:51 | P.PNPAL ---
Reason for Visit Reason for visit: a. To assist with evaluation and management of symptoms including: pain, dyspnea b. To assist medical decision maker(s) with: better understanding of current medical conditions; weighing benefits/burdens of medical treatment options; making medical treatment decisions. Subjective Subjective/Interval History: Patient seen and examined in ICU. No family present during my visit. Discussed with nurse who indicates patient is more lethargic today. Patient on vent, does not appear she will be able to be medically extubated based on respiratory parameters. Patient does not open eyes to voice or exam during my visit. Appears comfortable. No grimacing or tenderness on exam. Heart rate 60's. Post hemodialysis, 3 liters removed. Patient has been off sedation since yesterday, more lethargic today. Family/Friend Interactions: Family has decided to transition to comfort measures with compassionate withdrawal of life support. They are certain patient would not want to continue life prolonging measures given poor prognosis and continued decline. They feel it is time to honor patient written advanced directives. Anticipatory guidance provided. Offered support. Monitoring Coordinator visited with family. Advance Directives Living Will: Copy in medical record Significant change in goals:: Family has decided to transition to comfort measures with compassionate withdrawal of life support. Hospice consulted, Family will consider transfer to hospice care center in AM if patient survives. Objective Vital Signs: Vital Signs 04/07/18 14:00 04/07/18 16:00 04/07/18 16:27 Temperature 99 F Pulse Rate 55 L 66 Respiratory Rate 16 18 Blood Pressure 139/67 Pulse Oximetry 97 98 04/07/18 18:00 04/07/18 20:00 04/07/18 21:00 Temperature 99.6 F Pulse Rate 68 68 73 Respiratory Rate 16 22 Blood Pressure 145/65 H Pulse Oximetry 92 L 04/07/18 21:12 04/07/18 22:00 04/08/18 00:00 Temperature 99.2 F Pulse Rate 71 71 Respiratory Rate 16 16 Blood Pressure 158/72 H Pulse Oximetry 95 04/08/18 00:11 04/08/18 02:00 04/08/18 03:53 Temperature Pulse Rate 77 101 H Respiratory Rate 16 16 Blood Pressure Pulse Oximetry 95 04/08/18 04:00 04/08/18 04:13 04/08/18 06:00 Temperature 99.2 F Pulse Rate 143 H 79 Respiratory Rate 16 16 Blood Pressure 179/74 H Pulse Oximetry 95 98 04/08/18 08:13 04/08/18 12:07 Temperature Pulse Rate 78 Respiratory Rate 22 25 H Blood Pressure Pulse Oximetry 97 94 L Intake & Output 04/07/18 04/08/18 04/08/18 18:59 06:59 18:59 Intake Total 1463 / 1463 435 / 435 Output Total 3700 / 3700 350 / 350 Balance -2237 / -2237 85 / 85 Intake: IV 1275 / 1275 Nitroglycerin Drip Premix 50 mg 155 / 155 In 250 ml @ Per Protocol IV. CONT TITRATE PRN Rx#:[id number] Diprivan 1000 mg/100 ml Inj 1, 5 / 5 000 mg In 100 ml @ 5 MCG/KG/MIN 2.994 mls/hr IV.CONT TITRATE PRN Rx#:[id number] Cardizem Inj 125 MG In NS Inj 115 / 115 100 ML @ 5 MG/HR 5 mls/hr IV. CONT TITRATE PRN Rx#:[id number] NS Inj 1,000 ML @ Wide Open IV. 1000 / 1000 SIG BOLUS VIVEK Rx#:[id number] Oral 0 / 0 Tube Feeding 88 / 88 315 / 315 Tube Irrigant 100 / 100 60 / 60 Water Bolus Amount 60 / 60 Output: Stool 0 / 0 Urine/Stool Mix 0 / 0 Hemodialysis Amount 3000 / 3000 Urine Amount (Catheter) 700 / 700 350 / 350 Indwelling Urethral Catheter 700 / 700 350 / 350 Other: Date of Last Bowel Movement 04/01/18 # Bowel Movements 0 # Incontinent Bowel Movements 0 Physical Exam: CONSTITUTIONAL/GENERAL: This is an adequately nourished patient, sedated on vent TUBES/LINES/DRAINS: ETT, OGT, lerner SKIN: pale. No jaundice, rashes, or lesions. BUE ecchymoses. No wounds seen anteriorly. EYES: orbital edema. No scleral icterus. No injection or drainage. ENT: Nose without bleeding or purulent drainage. Throat exam limited by ET tube CARDIOVASCULAR: RRR RESPIRATORY/CHEST: Symmetric, unlabored respirations on vent. coarse breath sounds bilaterally. GASTROINTESTINAL: Abdomen soft, nondistended. BS + GENITOURINARY: Without palpable bladder distension. Lerner catheter in place. MUSCULOSKELETAL: Extremities without clubbing, cyanosis. + BUE edema No mottling or clubbing. NEUROLOGICAL: does not open eyes to voice. lethargic. Diagnostic Tests Laboratory: Laboratory Results - last 72 hr 04/05/18 04/05/18 04/05/18 13:41 17:16 21:01 WBC RBC Hgb Hct MCV MCH MCHC RDW Plt Count MPV APTT Sodium Potassium Chloride Carbon Dioxide Anion Gap BUN Creatinine Estimated GFR POC Glucose 179 H 291 H Random Glucose Calcium Total Bilirubin AST ALT Alkaline Phosphatase Total Protein Albumin Hepatitis A IgM Ab Nonreactive Hep Bs Antigen Nonreactive Hep B Core IgM Ab Nonreactive Hep C IgG Ab Nonreactive 04/06/18 04/06/18 04/06/18 04:42 04:42 04:42 WBC 11.3 H RBC 3.39 L Hgb 9.3 L Hct 29.2 L MCV 86.0 MCH 27.4 MCHC 31.8 L RDW 15.8 Plt Count 228 MPV 10.9 APTT 25.2 Sodium 141 Potassium 4.1 Chloride 102 Carbon Dioxide 26.7 Anion Gap 12 BUN 60 H Creatinine 2.60 H Estimated GFR 18 L POC Glucose Random Glucose 339 H Calcium 8.0 L Total Bilirubin 0.4 AST 93 H ALT 47 Alkaline Phosphatase 134 H Total Protein 6.3 L Albumin 1.8 L Hepatitis A IgM Ab Hep Bs Antigen Hep B Core IgM Ab Hep C IgG Ab 04/06/18 04/06/18 04/06/18 05:23 10:40 12:31 WBC RBC Hgb Hct MCV MCH MCHC RDW Plt Count MPV APTT Sodium Potassium Chloride Carbon Dioxide Anion Gap BUN Creatinine Estimated GFR POC Glucose 353 H 365 H 359 H Random Glucose Calcium Total Bilirubin AST ALT Alkaline Phosphatase Total Protein Albumin Hepatitis A IgM Ab Hep Bs Antigen Hep B Core IgM Ab Hep C IgG Ab 04/06/18 04/06/18 04/06/18 16:16 20:10 23:36 WBC RBC Hgb Hct MCV MCH MCHC RDW Plt Count MPV APTT Sodium Potassium Chloride Carbon Dioxide Anion Gap BUN Creatinine Estimated GFR POC Glucose 233 H 248 H 295 H Random Glucose Calcium Total Bilirubin AST ALT Alkaline Phosphatase Total Protein Albumin Hepatitis A IgM Ab Hep Bs Antigen Hep B Core IgM Ab Hep C IgG Ab 04/07/18 04/07/18 04/07/18 04:13 04:38 08:20 WBC RBC Hgb Hct MCV MCH MCHC RDW Plt Count MPV APTT Cancelled Sodium Potassium Chloride Carbon Dioxide Anion Gap BUN Creatinine Estimated GFR POC Glucose 323 H 330 H Random Glucose Calcium Total Bilirubin AST ALT Alkaline Phosphatase Total Protein Albumin Hepatitis A IgM Ab Hep Bs Antigen Hep B Core IgM Ab Hep C IgG Ab 04/07/18 04/07/18 04/07/18 08:44 08:48 12:16 WBC 11.3 H RBC 3.34 L Hgb 9.2 L Hct 28.6 L MCV 85.6 MCH 27.5 MCHC 32.1 RDW 15.7 Plt Count 241 MPV 10.4 APTT Sodium 142 Potassium 4.6 Chloride 103 Carbon Dioxide 28.7 Anion Gap 10 BUN 78 H Creatinine 2.78 H Estimated GFR 16 L POC Glucose 287 H Random Glucose 295 H Calcium 8.5 Total Bilirubin 0.3 AST 69 H ALT 46 Alkaline Phosphatase 121 H Total Protein 6.2 L Albumin 1.8 L Hepatitis A IgM Ab Hep Bs Antigen Hep B Core IgM Ab Hep C IgG Ab 04/07/18 04/07/18 04/08/18 15:48 19:59 01:13 WBC RBC Hgb Hct MCV MCH MCHC RDW Plt Count MPV APTT Sodium Potassium Chloride Carbon Dioxide Anion Gap BUN Creatinine Estimated GFR POC Glucose 166 H 227 H 331 H Random Glucose Calcium Total Bilirubin AST ALT Alkaline Phosphatase Total Protein Albumin Hepatitis A IgM Ab Hep Bs Antigen Hep B Core IgM Ab Hep C IgG Ab 04/08/18 04/08/18 04/08/18 03:37 03:37 03:37 WBC 11.1 H RBC 3.34 L Hgb 9.1 L Hct 28.7 L MCV 86.0 MCH 27.2 MCHC 31.6 L RDW 15.5 Plt Count 223 MPV 11.0 APTT 21.9 L Sodium 140 Potassium 4.5 Chloride 100 Carbon Dioxide 27.8 Anion Gap 12 BUN 63 H Creatinine 2.47 H Estimated GFR 19 L POC Glucose Random Glucose 266 H Calcium 8.6 Total Bilirubin 0.3 AST 53 H ALT 45 Alkaline Phosphatase 107 Total Protein 6.3 L Albumin 1.9 L Hepatitis A IgM Ab Hep Bs Antigen Hep B Core IgM Ab Hep C IgG Ab 04/08/18 04/08/18 05:01 07:30 WBC RBC Hgb Hct MCV MCH MCHC RDW Plt Count MPV APTT Sodium Potassium Chloride Carbon Dioxide Anion Gap BUN Creatinine Estimated GFR POC Glucose 274 H 278 H Random Glucose Calcium Total Bilirubin AST ALT Alkaline Phosphatase Total Protein Albumin Hepatitis A IgM Ab Hep Bs Antigen Hep B Core IgM Ab Hep C IgG Ab Result Diagrams: 04/08/18 03:37 04/08/18 03:37 Microbiology: Microbiology 04/01/18 21:20 Aerobic Blood Culture - Final Blood - Peripheral No growth in 5 days Anaerobic Blood Culture - Final No growth in 5 days 04/01/18 21:15 Aerobic Blood Culture - Final Blood - Peripheral No growth in 5 days Anaerobic Blood Culture - Final No growth in 5 days 04/03/18 12:30 Gram Stain - Final Sputum - Endotracheal Sputum Culture - Final Imaging: Chest X-Ray 04/08/18 06:00 CONCLUSION: Clear lungs. Procedures: 04/05/18 - Vas-cath placement Assessment and Plan - Disease Oriented Problem List (1) Chronic kidney disease, stage 4, severely decreased GFR (2) Congestive heart failure (3) Respiratory failure (4) Hypertension (5) Diabetes (6) NSTEMI (non-ST elevated myocardial infarction) Pertinent Non-Medical Issues: Psychosocial: Pt originally from [place], then moved to [place]. Has divided her time between [place] and [place] over the last 10 years. Recently living with Daughter who is local. 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 . Has 3 children. Spiritual: Tenriism. Family requests pastoral care, relocation services specialist visiting. Legal: Pt not capacitated to make decisions. In absence of designated HCS medical decision making falls to the majority of pt's 3 children. Family appears to be working together. Ethical issues impacting care: Important Contacts: Meliza Murrell [phone] cell [phone] brother in [place] Jorje [phone] Prognosis: 77 yo female, with CKD 4, type 2 DM noncompliant with insulin, admitted 04/01 with chest pain, SOB. Found to have NSTEMI. Cardiology not wanting to do cath procedure, recommending medical mgmt including anticoagulation but this is held currently 2/2 hypopharyngeal bleeding from intubaiton injury. nephrology recommending dialysis. Pt with worsening kidney function. Failed initial spontaneous breathing trials 2/2 agitation, mental status. Prognosis w/o dialysis extremely poor. Even with dialysis pt not likely to return to baseline. Code Status: Alternative Code (intubation only) Plan: - LEGAL DECISION MAKER -patient not capacitated to make medical decisions. In the absence of designated healthcare surrogate, per [place] statutes proxy decision-making falls to majority of 3 children. Family appears to be working together. - NO CODE - GOALS - Family has decided to transition to comfort measures with compassionate withdrawal of life support. Hospice consulted, Family will consider transfer to hospice care center in AM if patient survives. 2/3 children will sign Exhibit, as other son is admitted to hospital out of state. - SYMPTOMS - * pain - multifactorial, acute and chronic. at time of admission had chest pain. pt had sciatica, had just had injection. pt also had neuropathy per family. unable to quantify or qualify pain. Orders written for comfort meds. * dyspnea -had SOB prior to arrival. increasing activity intolerance over last few weeks. intubated prior to arrival. Found to have NSTEMI. cardiology recommending medical mgmt, no cath. Orders written for transition to comfort with compassionate withdrawal of life support. - d/w HENRY [facility]ez. - Palliative care will continue to follow during hospital course as condition evolves, to assist patient/decision-maker with understanding of medical conditions, weighing benefits/burdens of treatment options, for clarification of goals of treatment. Additionally will assist with any symptoms of palliative concern Attestation Attestation: To help prompt me to consider important information that might be impacting today's encounter and assessment, information from prior notes written by myself or my colleagues may have been "brought forward" into today's note. My signature on this note, however, is an attestation that I personally performed the exam, history, and/or decision-making noted today, and, unless otherwise indicated, the interactions with patient, family, and staff as well as the review of records all occurred today. I also attest that the listed assessment and stated plan reflect my best clinical judgment today based on the combination of historical information, prior notes, and today's exam/ interactions. When time spent is documented, it refers only to time spent today by the signer, or if indicated, combined time spent today by collaborating physician/nurse practitioner.
--- NOTE | 2018-04-08 13:35 | P.PNNP ---
Subjective Interval history: Patient condition remains critical Physical Exam Vital signs: Vital Signs 04/07/18 14:00 04/07/18 16:00 04/07/18 16:27 Temperature 99 F Pulse Rate 55 L 66 Respiratory Rate 16 18 Blood Pressure 139/67 Pulse Oximetry 97 98 04/07/18 18:00 04/07/18 20:00 04/07/18 21:00 Temperature 99.6 F Pulse Rate 68 68 73 Respiratory Rate 16 22 Blood Pressure 145/65 H Pulse Oximetry 92 L 04/07/18 21:12 04/07/18 22:00 04/08/18 00:00 Temperature 99.2 F Pulse Rate 71 71 Respiratory Rate 16 16 Blood Pressure 158/72 H Pulse Oximetry 95 04/08/18 00:11 04/08/18 02:00 04/08/18 03:53 Temperature Pulse Rate 77 101 H Respiratory Rate 16 16 Blood Pressure Pulse Oximetry 95 04/08/18 04:00 04/08/18 04:13 04/08/18 06:00 Temperature 99.2 F Pulse Rate 143 H 79 Respiratory Rate 16 16 Blood Pressure 179/74 H Pulse Oximetry 95 98 04/08/18 08:13 04/08/18 12:07 Temperature Pulse Rate 78 Respiratory Rate 22 25 H Blood Pressure Pulse Oximetry 97 94 L Intake & Output 04/07/18 04/08/18 04/08/18 18:59 06:59 18:59 Intake Total 1463 / 1463 435 / 435 Output Total 3700 / 3700 350 / 350 Balance -2237 / -2237 85 / 85 Intake: IV 1275 / 1275 Nitroglycerin Drip Premix 50 mg 155 / 155 In 250 ml @ Per Protocol IV. CONT TITRATE PRN Rx#:[id number] Diprivan 1000 mg/100 ml Inj 1, 5 / 5 000 mg In 100 ml @ 5 MCG/KG/MIN 2.994 mls/hr IV.CONT TITRATE PRN Rx#:[id number] Cardizem Inj 125 MG In NS Inj 115 / 115 100 ML @ 5 MG/HR 5 mls/hr IV. CONT TITRATE PRN Rx#:[id number] NS Inj 1,000 ML @ Wide Open IV. 1000 / 1000 SIG BOLUS VIVEK Rx#:[id number] Oral 0 / 0 Tube Feeding 88 / 88 315 / 315 Tube Irrigant 100 / 100 60 / 60 Water Bolus Amount 60 / 60 Output: Stool 0 / 0 Urine/Stool Mix 0 / 0 Hemodialysis Amount 3000 / 3000 Urine Amount (Catheter) 700 / 700 350 / 350 Indwelling Urethral Catheter 700 / 700 350 / 350 Other: Date of Last Bowel Movement 04/01/18 # Bowel Movements 0 # Incontinent Bowel Movements 0 - Constitutional no acute distress - Routine HEENT Exam Eye: Present: EOMI - Routine Neck Exam Present: supple - Routine Respiratory Exam Present: CTA bilaterally - Routine Cardiovascular Exam Present: RRR - Routine Abdominal Exam Present: soft, distended - Routine Extremities Exam Present: edema - Urinary Catheter Management Indwelling Urethral Catheter Cath placed during this visit: yes Reason for continuing: Acute urinary retention Insertion date: 04/01/18 Insertion time: 21:18 Assessment and Plan - Assessment (1) Chronic kidney disease, stage 4, severely decreased GFR Code(s): N18.4 - Chronic kidney disease, stage 4 (severe) Status: Acute (2) Congestive heart failure Code(s): I50.9 - Heart failure, unspecified Status: Acute (3) Respiratory failure Code(s): J96.90 - Respiratory failure, unspecified, unspecified whether with hypoxia or hypercapnia Status: Acute (4) Hypertension Code(s): I10 - Essential (primary) hypertension Status: Acute (5) Diabetes Code(s): E11.9 - Type 2 diabetes mellitus without complications Status: Acute - Plan Patient has advanced kidney failure in chronic kidney disease stage IV by history: Patient is critically ill, intubated Hemodialysis done yesterday Family decided to extubate and to do palliative care Palliative care taking over I will sign off
--- NOTE | 2018-04-08 14:10 | P.PNCC ---
Subjective Subjective Remarks/Hospital Course: Hospital Course: Unable to obtain history from patient due to intubation. History obtained from discussion with Dr. Eduardo and with review of medical records. 77-year-old female with past medical history of hypertension, hyperlipidemia, diabetes, coronary artery disease with prior stenting 2003, reported history of CHF (no prior echo here). EVAC was summoned due to respiratory distress. She was hypoxic at the scene despite nonrebreather. She was started on BiPAP but ultimately required intubation at the scene. Her BP was 260/180 and she had bilateral rales and reported increased pedal edema. She was given Lasix 100 mg IV. Upon arrival she was sedated with propofol. Chest x-ray showed pulmonary edema. She was started on a nitroglycerin drip. She has diuresed 800 mL's. Afebrile. Subjective: 04/03: remains intubated and sedated. agitated on sedation vacation, not following commands. yesterday placed on Aggrastat and heparin for ACS. trops stable at ~7. today, bleeding from the hypopharynx which was initially very active, and we held all anticoagulation. after this stopped, we restarted heparin alone. forced diuresis continues and patient has net negative balance with improving BNP. 04/04: Remains intubated sedated. UO 1L. creat 3.2. Receiving IV Lasix 40 mg every 24 hours. At this time family is contemplating on dialysis. Dr. kirby is not planning for cardiac catheterization at this time. Because of bleeding from hypopharynx from intubation injury, oral anticoagulation except heparin stopped 04/05: Remains intubated and had been off sedation for the last 4 hours very lethargic possibly opens eyes. Urine output improved with increased dose of Lasix almost 2 L in 24 hours. BUN 69 creatinine 3.2 remains stable. Because of overall poor prognosis Dr. kirby is not planning on cardiac catheterization 04/06: Start on hemodialysis yesterday after Vas-Cath was placed, about 1.25 L removed. Today morning patient developed A. fib with RVR heart rate in 150s. No response to 2.5 mg IV push of metoprolol. Started on Cardizem push IV 15 mg followed by infusion. Family updated about the condition. Patient's neuro status remains poor 04/07: Remains intubated mildly sedated with propofol. Eyes are wide open not following commands ago. Currently in sinus rhythm on Cardizem 15 mg/h. Start p.o. Cardizem and wean to DC IV Cardizem. Urine output 450 mL in 24 hours. Family refused hemodialysis yesterday. Probably wants to proceed with withdrawal but I will discuss with family to clarify goals of care today. 04/08: No improvement in neurologic function. Patient spontaneous respiratory effort is far too weak to sustain spontaneous breathing. Family still wishes to avoid dialysis. Family is now requested for us to consider hospice placement. The palliative care team is present discussing options with the family. Objective Vital Signs / I&O: Vital Signs 04/07/18 16:00 04/07/18 16:27 04/07/18 18:00 Temperature 99 F Pulse Rate 66 68 Respiratory Rate 16 18 Blood Pressure 139/67 Pulse Oximetry 97 98 04/07/18 20:00 04/07/18 21:00 04/07/18 21:12 Temperature 99.6 F Pulse Rate 68 73 Respiratory Rate 16 22 16 Blood Pressure 145/65 H Pulse Oximetry 92 L 04/07/18 22:00 04/08/18 00:00 04/08/18 00:11 Temperature 99.2 F Pulse Rate 71 71 Respiratory Rate 16 16 Blood Pressure 158/72 H Pulse Oximetry 95 95 04/08/18 02:00 04/08/18 03:53 04/08/18 04:00 Temperature 99.2 F Pulse Rate 77 101 H 143 H Respiratory Rate 16 16 Blood Pressure 179/74 H Pulse Oximetry 95 04/08/18 04:13 04/08/18 06:00 04/08/18 08:13 Temperature Pulse Rate 79 78 Respiratory Rate 16 22 Blood Pressure Pulse Oximetry 98 97 04/08/18 12:07 Temperature Pulse Rate Respiratory Rate 25 H Blood Pressure Pulse Oximetry 94 L Intake & Output 04/07/18 04/08/18 04/08/18 18:59 06:59 18:59 Intake Total 1463 / 1463 435 / 435 Output Total 3700 / 3700 350 / 350 Balance -7 / -2236 85 / 85 Intake: IV 1275 / 1275 Nitroglycerin Drip Premix 50 mg 155 / 155 In 250 ml @ Per Protocol IV. CONT TITRATE PRN Rx#:[id number] Diprivan 1000 mg/100 ml Inj 1, 5 / 5 000 mg In 100 ml @ 5 MCG/KG/MIN 2.994 mls/hr IV.CONT TITRATE PRN Rx#:[id number] Cardizem Inj 125 MG In NS Inj 115 / 115 100 ML @ 5 MG/HR 5 mls/hr IV. CONT TITRATE PRN Rx#:[id number] NS Inj 1,000 ML @ Wide Open IV. 1000 / 1000 SIG BOLUS VIVEK Rx#:[id number] Oral 0 / 0 Tube Feeding 88 / 88 315 / 315 Tube Irrigant 100 / 100 60 / 60 Water Bolus Amount 60 / 60 Output: Stool 0 / 0 Urine/Stool Mix 0 / 0 Hemodialysis Amount 3000 / 3000 Urine Amount (Catheter) 700 / 700 350 / 350 Indwelling Urethral Catheter 700 / 700 350 / 350 Other: Date of Last Bowel Movement 04/01/18 # Bowel Movements 0 # Incontinent Bowel Movements 0 Result Diagrams: 04/08/18 03:37 04/08/18 03:37 Objective Remarks: GENERAL: Obese elderly female, lying in bed, intubated, eyes are open not following commands HEENT: Normocephalic. Atraumatic. Pupils equal, round, reactive, conjugate. Orotracheally intubated NECK: Trachea is midline. Positive JVD persists. CHEST: Equal chest rise. PRVC mode of ventilation. Bibasilar crackles CARDIOVASCULAR: Currently in NSR on Cardizem infusion. Heart tones distant. Neck veins are full. ABDOMEN: Obese, soft, nontender, nondistended. No guarding. Few bowel sounds. MUSCULOSKELETAL: Pulses 2+. No peripheral edema. NEUROLOGICAL: Eyes are partially open, do not follow commands. Withdraws to pain. Moves extremities spontaneously. Respiratory effort minimal Assessment and Plan - Assessment and Plan Plan: Assessment: 77-year-old female with acute diastolic heart failure exacerbation with concomitant acute non-ST elevation myocardial infarction, most likely type II secondary to demand ischemia and hypertensive emergency. Remains critically ill with minimal improvements in the last 24 hours. Worsening renal failure hemodialysis started on 04/05/2018 NEURO: Acute metabolic encephalopathy Propofol discontinued. Lortab as needed for pain. Fentanyl as needed for breakthrough pain. RESP: Acute hypoxemic respiratory failure Prior tobacco abuse PRVC. Ventilator bundle. Wean FiO2 for sats greater than 90%. CPAP trial failed due to hypoxia and mental status again today CV: Acute severe pulmonary edema -improving Acute diastolic heart failure exacerbation Hypertensive emergency Atrial fibrillation with rapid ventricular response, new onset Acute non-ST elevation myocardial infarction, type II most likely History of coronary artery disease with prior stent 2004 Hyperlipidemia Started on Cardizem infusion yesterday currently on 15 mg/h Start Cardizem 60 mg p.o. every 6 hours, and wean to DC Cardizem infusion DC Norvasc. Serial troponins, EKG, 2D Echo normal LVEF On Lasix to 40 mg IV every 12 on 04/04. Started on hemodialysis 04/05/2018, but family refused hemodialysis 04/06/2018 No LIZ inhibitor at this time due to kidney injury. Previously was too bradycardic to use beta blockers Previously intolerant to statin. ASA 81 daily. GI: Obesity OGT in place. tube feeds FEN/RENAL: Acute on chronic kidney disease. -Nephrology following, started HD 04/05/18, 1.25L removed -Family had refused hemodialysis yesterday we will readdress with family today Fernando is in place. Daily BMP Hyperkalemiaresolved Trend on BMP ID: Afebrile. Seems much less likely to be of infectious etiology at this point so we will monitor off antibiotics. No significant secretions with suctioning. monitor. HEME: Monitor CBC ENDO: Diabetes mellitus Monitor bedside glucose every 6 hours and administer medium dose sliding scale as indicated. PROPH: SCDs and sq heparin for DVT prophylaxis. Famotidine IV for stress ulcer prophylaxis. ACCESS: PIV providing adequate access at this time Overall impression: This patient remains critically ill with one or more organ systems which are or may become a threat to life. The patient is ventilator dependent at this time and shows no promise for weaning. In the context of multiorgan system dysfunction and neurologic status, the patient is in a terminal condition which we are perpetuating with artificial support. The family understands this and wishes to proceed to a hospice situation.
[2018-04-08] MEDS ORDERED: Hyoscyamine Inj 0.5 MG/ML Ampul IV.PUSH PRN (14:13)
[2018-04-08] MEDS ORDERED: Hyoscyamine Inj 0.5 MG/ML Ampul IV.PUSH ONE (14:13)
[2018-04-08] MEDS ORDERED: Acetaminophen 650 MG Supp RECTAL PRN (14:13)
[2018-04-08] MEDS ORDERED: HYDROmorphone PF Inj 2 MG/ML Vial IV.PUSH PRN ×2 (14:13)
[2018-04-08] MEDS ORDERED: HYDROmorphone PF Inj 2 MG/ML Vial IV.PUSH ONE ×2 (14:13)
[2018-04-08] MEDS ORDERED: HYDROmorphone PF Inj 2 MG/ML Vial IV.PUSH SCH (16:00)
--- NOTE | 2018-05-10 07:26 | P.DS ---
Date of admission: 04/01/18 22:59 Primary care physician: Fernanda Merida Attending physician on discharge: Donald Bettencourt Brief History from admission: Unable to obtain history from patient due to intubation. History obtained from discussion with Dr. Eduardo and with review of medical records. 77-year-old female with past medical history of hypertension, hyperlipidemia, diabetes, coronary artery disease with prior stenting 2003, reported history of CHF (no prior echo here). EVAC was summoned due to respiratory distress. She was hypoxic at the scene despite nonrebreather. She was started on BiPAP but ultimately required intubation at the scene. Her BP was 260/180 and she had bilateral rales and reported increased pedal edema. She was given Lasix 100 mg IV. Upon arrival she was sedated with propofol. Chest x-ray showed pulmonary edema. She was started on a nitroglycerin drip. She has diuresed 800 mL's. Afebrile. Patient update on day of discharge: Patient at 1554 hours on 04/08/18 following removal of artificial support devices including mechanical ventilation. Family was at the bedside. DS: Diagnosis - Discharge Diagnosis (1) Respiratory failure Status: Acute (2) NSTEMI (non-ST elevated myocardial infarction) Status: Acute (3) Congestive heart failure Status: Acute (4) Chronic kidney disease, stage 4, severely decreased GFR Status: Acute (5) Diabetes Status: Acute DS: Summary Hospital Course: Hospital Course: Unable to obtain history from patient due to intubation. History obtained from discussion with Dr. Eduardo and with review of medical records. 77-year-old female with past medical history of hypertension, hyperlipidemia, diabetes, coronary artery disease with prior stenting 2003, reported history of CHF (no prior echo here). EVAC was summoned due to respiratory distress. She was hypoxic at the scene despite nonrebreather. She was started on BiPAP but ultimately required intubation at the scene. Her BP was 260/180 and she had bilateral rales and reported increased pedal edema. She was given Lasix 100 mg IV. Upon arrival she was sedated with propofol. Chest x-ray showed pulmonary edema. She was started on a nitroglycerin drip. She has diuresed 800 mL's. Afebrile. Subjective: 04/03: remains intubated and sedated. agitated on sedation vacation, not following commands. yesterday placed on Aggrastat and heparin for ACS. trops stable at ~7. today, bleeding from the hypopharynx which was initially very active, and we held all anticoagulation. after this stopped, we restarted heparin alone. forced diuresis continues and patient has net negative balance with improving BNP. 04/04: Remains intubated sedated. UO 1L. creat 3.2. Receiving IV Lasix 40 mg every 24 hours. At this time family is contemplating on dialysis. Dr. kirby is not planning for cardiac catheterization at this time. Because of bleeding from hypopharynx from intubation injury, oral anticoagulation except heparin stopped 04/05: Remains intubated and had been off sedation for the last 4 hours very lethargic possibly opens eyes. Urine output improved with increased dose of Lasix almost 2 L in 24 hours. BUN 69 creatinine 3.2 remains stable. Because of overall poor prognosis Dr. kirby is not planning on cardiac catheterization 04/06: Start on hemodialysis yesterday after Vas-Cath was placed, about 1.25 L removed. Today morning patient developed A. fib with RVR heart rate in 150s. No response to 2.5 mg IV push of metoprolol. Started on Cardizem push IV 15 mg followed by infusion. Family updated about the condition. Patient's neuro status remains poor 04/07: Remains intubated mildly sedated with propofol. Eyes are wide open not following commands ago. Currently in sinus rhythm on Cardizem 15 mg/h. Start p.o. Cardizem and wean to DC IV Cardizem. Urine output 450 mL in 24 hours. Family refused hemodialysis yesterday. Probably wants to proceed with withdrawal but I will discuss with family to clarify goals of care today. 04/08: No improvement in neurologic function. Patient spontaneous respiratory effort is far too weak to sustain spontaneous breathing. Family still wishes to avoid dialysis. Family is now requested for us to consider hospice placement. The palliative care team is present discussing options with the family. - Time Spent with Patient Total time spent providing and/or coordinating discharge services: Greater than 30 minutes Exam Narrative: Results Procedures completed during hospitalization: none - Impressions ITS Impressions Chest X-Ray 04/08/18 06:00 CONCLUSION: Clear lungs. Discharge Plan - Discharge Disposition Patient Disposition: 20 - Discharge Details Date/Time: 04/08/18 15:54 - Physicians Team Primary Care Provider: Fernanda Merida Attending Provider: Aileen Tipton Other Providers: Nde Subramanian MD ; Sonu Mendez MD ; Jazmyn Ferrer MD ; Genaro Pillai MD ; Odessa Chapman MD
== END 2018-04-08 15:54 | disposition expired ==
LOC: NEPE 20:56 → NEDA 22:59 → HIMC 04-02 00:45
PROVIDERS: ADMIT Emergency Medicine; ATTEND Emergency Medicine